=== PATIENT | female | born 1970 | race African-American/Black ===

== ENCOUNTER 2019-07-09 11:43 | Outpatient (CLI) | payer OTHER, SELFPAY ==
--- NOTE | ~2019-07-09 | XR_ITS ---
XR humerus RT, XR shoulder RT min 2V 07/09/2019 12:06 Indication: Right shoulder and arm pain Procedure: 4 views right shoulder and 2 views right humerus Comparison: No prior studies for comparison. Findings: There is mild polyarticular osteoarthritis of the right shoulder. There is a chronic appear ing right acromioclavicular separation. No acute fracture or traumatic malalignment. No significant s oft tissue abnormality. No foreign bodies. Impression: 1: No acute fracture. 2: Mild polyarticular osteoarthritis of the right shoulder with probable chronic AC separation. Reviewed, dictated and finalized at location A. Impression: 1: No acute fracture. 2: Mild polyarticular osteoarthritis of the right shoulder with probable chroni c AC separation. Impression: 1: No acute fracture. 2: Mild polyarticular osteoarthritis of the right shoulder with probable chroni c AC separation.
--- NOTE | ~2019-07-09 | XR_ITS ---
XR wrist RT 2V 07/09/2019 12:06 Indication: Right wrist pain Procedure: 2 views right wrist Comparison: 01/14/2017 Findings: No acute fracture or traumatic malalignment. No significant soft tissue abnormality. No rad iopaque foreign bodies. No erosive changes. Impression: 1: No significant bone or joint abnormality. Reviewed, dictated and finalized at location A. Impression: 1: No significant bone or joint abnormality.
== END 2019-07-09 11:44 | disposition home or self-care (01) ==
LOC: ANHIMG 11:45
PROVIDERS: PCP Family Medicine; Referring Provider Physician Assistant; Visit Provider Family Medicine
DX: M25.511 Pain in right shoulder (principal); M19.011 Primary osteoarthritis, right shoulder
CPT/HCPCS: 73030; 73060; 73100

== ENCOUNTER 2019-12-16 15:28 | Outpatient (CLI) | payer OTHER, MEDICAID, SELFPAY ==
--- NOTE | ~2019-12-16 | MR_ITS ---
EXAMINATION: MR cervical spine wo con EXAM DATE: 12/16/2019 16:30 INDICATION: Cervicalgia. TECHNIQUE: Multi-sequential, multiplanar MR images of the cervical spine were obtained without contra st. Axial T2, axial T2 MERGE sequence. Sagittal T1, T2, T2 fat saturation images also obtained. Com parison is made to prior examination from 10/08/2007. FINDINGS: There is moderate disc disease C3-6, mild at C2-3 and C6-7. The vertebral bodies are align ed in the AP dimension. There are no suspicious marrow signal abnormalities. The spinal cord signal i ntensity and intrinsic morphology is normal. Cervicomedullary junction is normal in appearance. Par aspinal soft tissue is unremarkable. Level by level evaluation: C2-C3: Disc does not extend beyond the endplate margin. Uncovertebral joint arthropathy: None. Facet joint arthropathy: Mild bilateral. Neural foraminal stenosis: No stenosis. Central canal stenosis: No stenosis. C3-C4: There is a mild diffuse disc bulge with small 3 mm superimposed left central extrusion indenti ng the left anterior aspect of the spinal cord. No cord edema. Uncovertebral joint arthropathy: Mild bilateral. Facet joint arthropathy: Mild bilateral. Neural foraminal stenosis: Mild bilateral. Central canal stenosis: Mild. C4-C5: There is a mild to moderate diffuse disc bulge. Uncovertebral joint arthropathy: Mild. Facet joint arthropathy: Mild. Neural foraminal stenosis: Mild bilateral. Central canal stenosis: Mild . Central canal measures 7 mm in mid sagittal AP diameter . C5-C6: There is a mild to moderate diffuse disc bulge. Uncovertebral joint arthropathy: Moderate right, mild to moderate left. Facet joint arthropathy: Mild bilateral. Neural foraminal stenosis: Moderate right, mild to moderate left. Central canal stenosis: Mild . Central canal measures 6 mm in mid sagittal AP diameter . C6-C7: There is a mild diffuse disc bulge. Uncovertebral joint arthropathy: Mild to moderate left, mild right. Facet joint arthropathy: Mild bilateral. Neural foraminal stenosis: Mild to moderate left, mild right. Central canal stenosis: Mild . Central canal measures 7 mm in mid sagittal AP diameter . C7-T1: Disc does not extend beyond the endplate margin. Uncovertebral joint arthropathy: Mild left. Facet joint arthropathy: Mild to moderate right, mild left. Neural foraminal stenosis: No stenosis. Central canal stenosis: No stenosis. There has been some interval progression in spondylosis compared to 2008. IMPRESSION: 1. C3-4 small left central extrusion indenting the spinal cord. 2. Overall mild to moderate cervical spondylosis with mild progression compared to 2007. Reviewed, dictated and finalized at location B. IMPRESSION: 1. C3-4 small left central extrusion indenting the spinal cord. 2. Overall mild to moderate cervical spondylosis with mild progression compare d to 2007.
== END 2019-12-16 15:29 | disposition home or self-care (01) ==
PROVIDERS: PCP Family Medicine; Visit Provider Family Medicine
DX: M54.2 Cervicalgia (principal); M47.812 Spondylosis without myelopathy or radiculopathy, cervical region
CPT/HCPCS: 72141

== ENCOUNTER → 2020-01-10 13:42 | Outpatient (CLI) | payer OTHER, MEDICAID, SELFPAY ==
--- NOTE | ~2020-01-10 | MM_ITS ---
EXAMINATION: MM screening rachna BI w jun HISTORY: Screening mammogram TECHNIQUE: Craniocaudal and mediolateral oblique 3-D tomosynthesis images were obtained and synthetic 2-D images were generated. CAD analysis was submitted and interpreted. COMPARISON: 11/23/2016, 11/11/2014, 10/15/2013 bilateral digital screening mammogram examinations BREAST PARENCHYMAL COMPOSITION: There are scattered areas of fibroglandular density. FINDINGS: There is an irregular approximately 10 x 14 mm mass with microcalcifications in the central right breast approximately 5.6 cm deep to the nipple. The high density, irregular margins and microc alcifications are very highly suspicious for primary breast cancer. Diagnostic right mammogram and ri ght breast ultrasound examination are recommended. There is stable asymmetry in the anterior outer right breast on CC projection, not significantly brumfield ged since 10/15/2013. No other suspicious mass, architectural distortion, malignant calcification, skin thickening or retra ction or other significant change of either breast is noted. IMPRESSION: 1. 10 x 14 mm irregular high density mass with microcalcifications in central right breast, very high ly suspicious for cancer 2. Recommend diagnostic right mammogram and right breast ultrasound examination BI-RADS Category 0: Incomplete: Needs additional imaging evaluation. Dr. Curiel telephoned the findings and the recommendations to nurse Beck on 01/10/2020 at 1454 hours Reviewed, dictated and finalized at location A. IMPRESSION: 1. 10 x 14 mm irregular high density mass with microcalcifications in central r ight breast, very highly suspicious for cancer 2. Recommend diagnostic right mammogram and right breast ultrasound examination BI-RADS Category 0: Incomplete: Needs additional imaging evaluation. Dr. Curiel telephoned the findings and the recommendations to nurse Beck on at 1454 hours
== END ==
PROVIDERS: PCP Family Medicine; Visit Provider Nurse Practitioner
DX: Z12.31 Encounter for screening mammogram for malignant neoplasm of breast (principal); R92.8 Other abnormal and inconclusive findings on diagnostic imaging of breast
CPT/HCPCS: 77063; 77067

== ENCOUNTER 2020-01-18 10:44 | Outpatient (NON) | payer OTHER, MEDICAID, SELFPAY ==
[2020-01-18 23:36] LABS: SARS-CoV-2 RNA PCR Negative
== END 2020-01-18 10:45 ==
LOC: ANHCOVIDDT 10:46
PROVIDERS: PCP Family Medicine; Visit Provider Physician Assistant
DX: Z20.828 Contact with and (suspected) exposure to other viral communicable diseases (principal); R68.89 Other general symptoms and signs
CPT/HCPCS: 87635; C9803; U0003

== ENCOUNTER → 2020-01-26 07:56 | Outpatient (CLI) | payer OTHER, MEDICAID, SELFPAY ==
--- NOTE | ~2020-01-26 | MMUS_ITS ---
EXAMINATION: MM diagnostic mammo unilat RT, US breast RT complete HISTORY: Follow-up right breast mass TECHNIQUE: Additional 3-D tomosynthesis images of the right breast were performed and synthetic 2-D i mages were generated. CAD analysis was submitted and interpreted. High resolution complete right alyssa st ultrasound was performed. COMPARISON: Comparison to multiple prior studies sequentially, with oldest reviewed study dated 08/2012. BREAST PARENCHYMAL COMPOSITION: BREAST PARENCHYMAL COMPOSITION: There are scattered areas of fibroglandular density. FINDINGS: MAMMOGRAPHIC FINDINGS: There is an irregular shaped mass in the central aspect of the right breast measuring approximately 1 .5 cm. There are peripheral calcifications. ULTRASOUND: Complete right breast ultrasound: At 10-11:00 position of the right breast near the areola there is an irregular shaped hypoechoic mass with peripheral vascularity and mixed posterior attenuation 2.1 x 1.6 x 1 cm. This corresponds to th e mammographic abnormality. IMPRESSION: 1. Abnormal 2.1 cm hypoechoic right breast mass corresponding to mammographic abnormality. 2. Ultrasound-guided right breast biopsy recommended. BI-RADS category 4, suspicious findings. Reviewed, dictated and finalized at location A. BUILDER IMPRESSION: 1. Abnormal 2.1 cm hypoechoic right breast mass corresponding to mammographic a bnormality. 2. Ultrasound-guided right breast biopsy recommended. BI-RADS category 4, suspicious findings.
== END ==
PROVIDERS: PCP Family Medicine; Visit Provider Obstetrics & Gynecology Gynecology
DX: R92.8 Other abnormal and inconclusive findings on diagnostic imaging of breast (principal)
CPT/HCPCS: 76641; 77065

== ENCOUNTER → 2020-12-04 09:50 | Outpatient (CLI) | payer OTHER, MEDICAID, SELFPAY ==
--- NOTE | ~2020-12-04 | MR_ITS ---
EXAMINATION: MR lumbar spine wo con EXAM DATE: 12/04/2020 10:34 INDICATION: M51.9 - Unspecified thoracic, thoracolumbar and lumbosacr... low back pain . Bilateral le g pain. TECHNIQUE: Multi-sequential, multiplanar MR images of the lumbar spine were obtained without contrast . Sagittal T1, T2, T2 fat saturation images. Axial T2 weighted images. Comparison is made to prior examination from 2008. FINDINGS: The vertebral bodies are aligned in the AP dimension. Vertebral body and disc heights are w ell-maintained. There are no suspicious marrow signal abnormalities. The conus medullaris terminates at the L1/2 level and has normal signal intensity and morphology. Paraspinal soft tissue is unremarka ble. Level by level evaluation: T12-L1: Disc does not extend beyond the endplate margin. Facet arthropathy: Mild. Neural foraminal stenosis: No stenosis. Central canal stenosis: No stenosis. L1-L2: Disc does not extend beyond the endplate margin. Facet arthropathy: Mild. Neural foraminal stenosis: No stenosis. Central canal stenosis: No stenosis. L2-L3: Disc does not extend beyond the endplate margin. Facet arthropathy: Mild. Neural foraminal stenosis: No stenosis. Central canal stenosis: No stenosis. L3-L4: There is a mild diffuse disc bulge. Facet arthropathy: Mild to moderate. Neural foraminal stenosis: Mild bilateral. Central canal stenosis: No stenosis. L4-L5: There is a mild diffuse disc bulge. Facet arthropathy: Moderate to severe right, moderate left. Synovial cyst projecting internally from the right facet joint causing severe lateral recess stenosis, nerve root crowding Neural foraminal stenosis: Mild to moderate left, mild right. Central canal stenosis: Moderate. L5-S1: There is a mild diffuse disc bulge. Facet arthropathy: Mild to moderate. Neural foraminal stenosis: Mild bilateral. Central canal stenosis: Mild. Arthropathy has progressed, and the synovial cyst described above has developed compared to 2008. IMPRESSION: L4-5 facet arthropathy with right facet synovial cyst causing severe right lateral recess stenosis, moderate central canal stenosis. Reviewed, dictated and finalized at location B. IMPRESSION: L4-5 facet arthropathy with right facet synovial cyst causing sever e right lateral recess stenosis, moderate central canal stenosis.
== END ==
PROVIDERS: PCP Family Medicine; Visit Provider Family Medicine
DX: M51.9 Unspecified thoracic, thoracolumbar and lumbosacral intervertebral disc disorder (principal); M47.896 Other spondylosis, lumbar region; M48.061 Spinal stenosis, lumbar region without neurogenic claudication
CPT/HCPCS: 72148

== ENCOUNTER → 2021-10-20 09:51 | Outpatient (CLI) | payer OTHER, MEDICAID, SELFPAY ==
--- NOTE | ~2021-10-20 | MR_ITS ---
EXAMINATION: MR lumbar spine wo con DATE: 10/20/2021 10:59 INDICATION: Low back pain. Bilateral leg numbness. TECHNIQUE: Magnetic resonance imaging (MRI) of the lumbar spine was performed without intravenous con trast. Sequences included sagittal T2-weighted FSE, sagittal T2-weighted FS FSE, sagittal T1-weighted FSE, and axial T2-weighted FSE. COMPARISON: Lumbar spine MRI 12/04/2020 FINDINGS: There is 6 degrees levocurvature of lumbar spine. Vertebral body heights and intervertebral disc heights are normal. The distal spinal cord signal intensity is normal. The conus medullaris is at L1-L2. The following disc levels are specifically discussed: L1-L2: The disc does not extend beyond the endplate margin. There is mild bilateral facet joint osteo arthritis. There is no neural foraminal stenosis. There is no central canal stenosis. L2-L3: There is a left foraminal protrusion. There is mild bilateral facet joint osteoarthritis. Ther e is mild left neural foraminal stenosis. There is no central canal stenosis. L3-L4: The disc is mildly bulging. There is severe bilateral facet joint osteoarthritis. There is mil d bilateral neural foraminal stenosis. There is no central canal stenosis. L4-L5: The disc is bulging. There is severe bilateral facet joint osteoarthritis. There is mild bilat eral neural foraminal stenosis. There is mild central canal stenosis. There are changes of hemilamino ernie on the right. The synovial cyst is no longer present. L5-S1: The disc is bulging and has an annular fissure. There is severe bilateral facet joint osteoart hritis. There is mild bilateral neural foraminal stenosis. There is mild central canal stenosis. IMPRESSION: 1. Mild lumbar spondylosis with interval improvement status post resolution of the synovial cyst on t he right at L4-L5. Reviewed, dictated and finalized at location A. IMPRESSION: 1. Mild lumbar spondylosis with interval improvement status post resolution of the synovial cyst on the right at L4-L5.
== END ==
PROVIDERS: PCP Family Medicine
DX: M71.38 Other bursal cyst, other site (principal); Z98.890 Other specified postprocedural states; M47.816 Spondylosis without myelopathy or radiculopathy, lumbar region
CPT/HCPCS: 72148

== ENCOUNTER → 2021-11-24 07:56 | Outpatient (CLI) | payer MEDICAID, SELFPAY ==
--- NOTE | ~2021-11-24 | US_ITS ---
EXAMINATION: US abdomen complete DATE: 11/24/2021 08:16 INDICATION: Abnormal levels of other serum enzymes. TECHNIQUE: Multiple grayscale and Doppler ultrasound images of the abdomen were obtained. COMPARISON: None FINDINGS: Abdominal aorta is normal in caliber. Inferior vena cava is normal. The visualized portions of the head and body of the pancreas are normal. The liver is normal without focal lesion. No liver surface nodularity. There is normal flow in main portal vein. The gallbladder is normal in size. No g allstones or gallbladder wall thickening. There is no sonographic Reynoso sign. The common duct is nor mal and measures 3 mm. The spleen is normal in size. The kidneys are normal in size. IMPRESSION: 1. No etiology for abnormal liver function tests. Reviewed, dictated and finalized at location A.
== END ==
PROVIDERS: PCP Physician Assistant; Visit Provider Physician Assistant
DX: R74.8 Abnormal levels of other serum enzymes (principal)
CPT/HCPCS: 76700

== ENCOUNTER 2022-04-22 00:42 | Day surgery (SDC) | payer OTHER, SELFPAY ==
[2022-03-05 10:46] VITALS: BMI 36.7
--- NOTE | 2022-04-04 14:16 | PC.NURSE ---
Talked to patient regarding new procedure dates/times. Patient states she understands prep instructions. No new medical history or medication since last phone call.
[2022-04-22 07:41] VITALS: BMI 37.0
[2022-04-22 07:43] VITALS: BP 147/89; PULSE 74; RESP 18; TEMP 36.1; O2SAT 100
[2022-04-22] MEDS: LACTATED RINGERS 1,000 ML 150 ML IV CONT (07:52)
--- NOTE | 2022-04-22 08:12 | WPDANESEPPF ---
Anes - Initial Pre Proc Eval Procedure: Operation Date: 04/22/22 08:30 Proposed Procedures p Screening Colonoscopy - Jason Calix MD Date/Time: 04/22/22 08:12 Surgeon: Jason Calix MD Pre Op Diagnosis: neoplasm screening Patient Data Age: 52 Gender: F Height: 1.6 m Weight: 94.7 kg Last Vital Signs Temp 97.0 F L 04/22/22 07:43 Pulse 74 04/22/22 07:43 Resp 18 04/22/22 07:43 BP 147/89 H 04/22/22 07:43 Pulse Ox 100 04/22/22 07:43 O2 Del Method Room Air 04/22/22 07:43 Allergies Allergy/AdvReac Type Severity Reaction Status Date / Time cefaclor Allergy Unknown Unknown Verified 04/22/22 07:39 ciprofloxacin Allergy Unknown Unknown Verified 04/22/22 07:39 Home Medications Medication Instructions Recorded Confirmed Type acetaminophen 500 mg capsule 500 mg PO Q6H PRN Pain 01/24/21 03/05/22 History multivitamin 1 tablet PO DAILY 01/24/21 03/05/22 History tamoxifen 20 mg tablet 20 mg PO DAILY 01/24/21 03/05/22 History vitamin E 200 unit capsule 200 unit PO DAILY 01/24/21 03/05/22 History amlodipine 5 mg tablet 5 mg PO DAILY #30 tabs 06/28/21 03/05/22 Rx loratadine 10 mg tablet (Claritin) 10 mg PO DAILY #30 tabs 06/28/21 03/05/22 Rx ergocalciferol (vitamin D2) 1,250 1,250 mcg PO WEEKLY #14 caps 09/28/21 03/05/22 Rx mcg (50,000 unit) capsule fluticasone propionate 50 1 spray intranasal BID #16 grams 12/11/21 03/05/22 Rx mcg/actuation nasal spray,suspension hydrocodone 7.5 mg-acetaminophen 1 tablet PO Q6H PRN pain #60 tabs 01/23/22 03/05/22 Rx 325 mg tablet escitalopram oxalate 10 mg tablet 10 mg PO DAILY #30 tabs 02/05/22 03/05/22 Rx gabapentin 400 mg capsule 400 mg PO BID #60 caps 02/05/22 03/05/22 Rx meloxicam 15 mg tablet 15 mg PO DAILY #30 tabs 02/05/22 03/05/22 Rx chlorthalidone 25 mg tablet 25 mg PO QAM #30 tabs 02/22/22 03/05/22 Rx losartan 50 mg tablet 50 mg PO DAILY #30 tabs 04/18/22 04/22/22 Rx Patient hx anesthesia problems: none Family hx anesthesia problems: none Results Review: All pre-operative results and documents have been reviewed as part of the pre-operative evaluation. [facility] Past Medical History Medical History Allergic rhinitis (08/03/15) Breast cancer Cervical disc disease Depression Encounter for immunization Essential (primary) hypertension Gastroesophageal reflux disease Hyperlipidemia Sleep apnea Vitamin D deficiency Surgical History Surgical History History of lumpectomy (~03/2020) alissa 6 and 19 - right breast - breast cancer Previous back surgery Family History Family History Mother Hypertension Grandparent Family history of malignant neoplasm Social History Social History (Updated 02/05/22 @ 14:57 by Polly Lloyd CMA) Smoking status: Never smoker Second hand tobacco smoke exposure: No Alcohol intake: current Alcohol use details: occasional Substance use: current Substance use type: marijuana Other substance usage details: edibles Lack of Transportation: No Lack of Food: Sometimes True Current Housing: I Have Housing Concerned About Future Housing: No Difficulty Paying Gas/Electric Bills: YES Difficulty Paying for Meds: No 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cation: High School Diploma/GED Difficulty w/ Childcare or Family Care: No Living arrangements: with family Occupation/Education: unemployed Gender identity (if verbalized by the patient): Female Sexual Orientation (if Verbalized by the Patient): Straight or Heterosexual Spiritual care concerns: No Agree to blood products: Yes Anes - Eval Final PreProcedure Day of Procedure 04/22/22 08:12 Patient weight: obese Heart: regular rate and rhythm Lungs: clear to auscultation Airway: Mallampati scale class II Neurological: alert and
--- NOTE | 2022-04-22 08:29 | PM.HPGS ---
History of Present Illness History of Present Illness Consent: Risks, benefits, and alternatives have been discussed and questions answered. Patient agrees to proceed with procedure. Chief complaint: neoplasm screening Narrative: Roula Burnett is a 52 year old female here for first screening colonoscopy Review of Systems Constitutional: Constitutional: Denies headache(s) and Denies weakness Eyes: Eyes: Denies blurry vision ENT: Reports Normal hearing present, Denies headache(s) and Denies neck pain Cardiovascular: Cardiovascular: Denies chest pain and Denies dyspnea Respiratory: Respiratory: Denies dyspnea Gastrointestinal: Gastrointestinal: Reports no additional gastrointestinal complaints Genitourinary: Genitourinary: Denies dysuria Musculoskeletal: Musculoskeletal: Denies neck pain Integumentary/Breasts: Skin/Breast: Denies dry skin Neurologic: Reports Normal hearing present, Denies headache(s) and Denies weakness Psychiatric: Psychiatric: Denies anxiety Endocrine: Endocrine: Denies change in body appearance Hematologic/Lymphatic: Hematologic/Lymphatic: Denies easy bleeding Allergic/Immunologic: Allergic/Immunologic: Denies urticaria [facility] Past Medical History Medical History (Updated 04/22/22 @ 08:32 by Jason Calix MD) Allergic rhinitis (08/03/15) Breast cancer Cervical disc disease Colon cancer screening Depression Encounter for immunization Essential (primary) hypertension Gastroesophageal reflux disease Hyperlipidemia Sleep apnea Vitamin D deficiency Surgical History Surgical History History of lumpectomy (~03/2020) alissa 5 and 19 - right breast - breast cancer Previous back surgery Family History Family History Mother Hypertension Grandparent Family history of malignant neoplasm Social History Social History (Updated 02/05/22 @ 14:57 by Polly Lloyd [facility]) Smoking status: Never smoker Second hand tobacco smoke exposure: No Alcohol intake: current Alcohol use details: occasional Substance use: current Substance use type: marijuana Other substance usage details: edibles Lack of Transportation: No Lack of Food: Sometimes True Current Housing: I Have Housing Concerned About Future Housing: No Difficulty Paying Gas/Electric Bills: YES Difficulty Paying for Meds: No 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cation: High School Diploma/GED Difficulty w/ Childcare or Family Care: No Living arrangements: with family Occupation/Education: unemployed Gender identity (if verbalized by the patient): Female Sexual Orientation (if Verbalized by the Patient): Straight or Heterosexual Spiritual care concerns: No Agree to blood products: Yes Meds Home Medications and Allergies Home Medications Medication Instructions Recorded Confirmed Type acetaminophen 500 mg capsule 500 mg PO Q6H PRN Pain 01/24/21 03/05/22 History multivitamin 1 tablet PO DAILY 01/24/21 03/05/22 History tamoxifen 20 mg tablet 20 mg PO DAILY 01/24/21 03/05/22 History vitamin E 200 unit capsule 200 unit PO DAILY 01/24/21 03/05/22 History amlodipine 5 mg tablet 5 mg PO DAILY #30 tabs 06/28/21 03/05/22 Rx loratadine 10 mg tablet (Claritin) 10 mg PO DAILY #30 tabs 06/28/21 03/05/22 Rx ergocalciferol (vitamin D2) 1,250 1,250 mcg PO WEEKLY #14 caps 09/28/21 03/05/22 Rx mcg (50,000 unit) capsule fluticasone propionate 50 1 spray intranasal BID #16 grams 12/11/21 03/05/22 Rx mcg/actuation nasal spray,suspension hydrocodone 7.5 mg-acetaminophen 1 tablet PO Q6H PRN pain #60 tabs 01/23/22 03/05/22 Rx 325 mg tablet escitalopram oxalate 10 mg tablet 10 mg PO DAILY #30 tabs 02/05/22 03/05/22 Rx gabapentin 400 mg capsule 400 mg PO BID #60 caps 02/05/22 03/05/22 Rx meloxicam 15 mg tablet 15 mg PO DAILY #30 tabs 02/05/22 03/05/22 Rx chlorthalidone 25 mg ta
[2022-04-22 08:48] VITALS: BP 131/65; PULSE 75; RESP 17; O2SAT 100
[2022-04-22 08:58] VITALS: BP 141/77; PULSE 73; RESP 19; O2SAT 100
[2022-04-22 09:08] VITALS: BP 152/84; PULSE 72; RESP 17; O2SAT 100
== END 2022-04-22 09:22 | disposition home or self-care (01) ==
PROVIDERS: PCP Family Medicine; Visit Provider Internal Medicine Gastroenterology
PROC: 0DJD8ZZ Inspection of Lower Intestinal Tract, Via Natural or Artificial Opening Endoscopic (ICD-10-PCS; CPT 45378; principal; 2022-04-22 08:30)
DX: Z12.11 Encounter for screening for malignant neoplasm of colon (principal); K57.30 Diverticulosis of large intestine without perforation or abscess without bleeding; D12.4 Benign neoplasm of descending colon; I10 Essential (primary) hypertension; E78.5 Hyperlipidemia, unspecified; E55.9 Vitamin D deficiency, unspecified; F32.A Depression, unspecified; G47.30 Sleep apnea, unspecified; Z85.3 Personal history of malignant neoplasm of breast; F12.90 Cannabis use, unspecified, uncomplicated; E66.9 Obesity, unspecified; Z68.37 Body mass index [BMI] 37.0-37.9, adult
CPT/HCPCS: 45385; 88305; J2704; J7120

== ENCOUNTER 2022-10-11 07:34 | Outpatient (CLI) | payer OTHER, SELFPAY ==
--- NOTE | ~2022-10-11 | MR_ITS ---
MRI of the cervical spine Clinical History: Radiculopathy Technique: Axial T2-weighted and gradient images, and sagittal T1-weighted, T2-weighted, and STIR shane ges were acquired. Findings: There is no fracture or subluxation of the cervical spine. Vertebral bodies maintain normal height and alignment. There is straightening of the cervical lordosis. No suspicious bone marrow sig nal abnormality seen. At C2-C3, there is no disc bulge or herniation. No spinal canal stenosis, cord compression, or neural foraminal narrowing. At C3-C4, there is disc osteophyte complex, most pronounced in the left paracentral region, with mild canal stenosis and mild ventral cord compression, especially on the left side. Bilateral neural fora omar are preserved. At C4-C5, there is broad-based disc osteophyte complex with mild canal stenosis and minimal flattenin g the ventral cord. Bilateral neural foramina are preserved. At C5-C6, there is broad-based disc osteophyte complex with mild canal stenosis and mild ventral cord compression. There is right neural foraminal narrowing. Left neural foramen preserved. At C6-C7, there is disc osteophyte complex resulting in mild canal stenosis and probable minimal flat tening the ventral cord. Bilateral neural foramina are preserved. No abnormal signal seen in the spinal cord itself. Paravertebral soft tissues are unremarkable. Impression: Moderate degenerative spondylosis, as detailed above. There is mild ventral cord flattening/compressi on at C3-C4, C4-C5, C5-C6, and C6-C7, as detailed above. Reviewed, dictated and finalized at [facility]. Impression: Moderate degenerative spondylosis, as detailed above. There is mild ventral cor d flattening/compression at C3-C4, C4-C5, C5-C6, and C6-C7, as detailed above.
== END 2022-10-11 07:35 | disposition home or self-care (01) ==
PROVIDERS: PCP Family Medicine; Visit Provider Family Medicine
DX: M50.90 Cervical disc disorder, unspecified, unspecified cervical region (principal); M47.22 Other spondylosis with radiculopathy, cervical region
CPT/HCPCS: 72141

== ENCOUNTER 2022-11-27 10:36 | Outpatient (CLI) | payer OTHER, SELFPAY ==
--- NOTE | ~2022-11-27 | US_ITS ---
EXAMINATION: US pelvic complete w TV DATE: 11/27/2022 11:23 INDICATION: PELVIC PAIN TECHNIQUE: Multiple transabdominal and endovaginal sonographic images of the pelvis were obtained. COMPARISON: 12/19/2017. FINDINGS: Uterus: 7.1 x 7.0 x 5.7 cm. Heterogeneous uterine parenchyma. Discrete fibroid is not identified. End ometrial complex poorly visualized, with an indistinct transitional zone, and not directly measured. Right Ovary: Poorly visualized. Left Ovary: Not visualized. There is no free fluid in the pelvis. IMPRESSION: Sonographic findings suggestive of adenomyosis. Port mineralization of the right ovary. Left ovary not visualized. MR of the pelvis could be considered to confirm adenomyosis and/or leiomyomatosis and better evaluate the bilateral ovaries/adnexa. Reviewed, dictated and finalized at location K. IMPRESSION: Sonographic findings suggestive of adenomyosis. Port mineralization of the right ovary. Left ovary not visualized. MR of the pelvis could be considered to confirm adenomyosis and/or leiomyomatos is and better evaluate the bilateral ovaries/adnexa.
== END 2022-11-27 10:37 | disposition home or self-care (01) ==
LOC: ANHIMG 10:37
PROVIDERS: PCP Family Medicine; Visit Provider Nurse Practitioner
DX: N85.2 Hypertrophy of uterus (principal); D25.9 Leiomyoma of uterus, unspecified
CPT/HCPCS: 76830; 76856

== ENCOUNTER 2023-01-09 09:37 | Outpatient (CLI) | payer OTHER, SELFPAY ==
--- NOTE | ~2023-01-09 | XR_ITS ---
XR lumbar spine min 4V DATE: 01/09/2023 10:52 INDICATION: Standing AP and neutral, extension and flexion lateral standing views TECHNIQUE: 01/10/2020 MRI lumbar spine COMPARISON: 01/09/2023 MRI lumbar spine FINDINGS: Incidentally noted are bilateral fallopian tube inserts. There is mild levoscoliosis of the thoracolumbar spine. Normal alignment of the lumbar spine in flexion or extension. No fracture or bone destruction is dete cted. Included lower thoracic and lumbar pedicles are intact. There is mild degenerative spurring of the lumbar spine. Lumbar interspaces appear relatively well pr eserved. IMPRESSION: Mild levoscoliosis Mild degenerative spurring Reviewed, dictated and finalized at location L.
--- NOTE | ~2023-01-09 | MR_ITS ---
MRI of the lumbar spine Clinical History: Radiculopathy Technique: Axial T2-weighted images, and sagittal T1-weighted, T2-weighted, and T2 fat-sat images wer e acquired. Following intravenous administration of 18 cc MultiHance gadolinium, T1-weighted fat-sat imaging was performed in the axial and sagittal planes. Findings: There is no fracture or subluxation of the lumbar spine. Vertebral bodies maintain normal h eight and alignment. No suspicious bone marrow signal abnormality seen. At L1-L2, L2-L3, there is no disc bulge or herniation. There are moderate facet joint degenerative ch anges at these levels. No spinal canal stenosis or neural foraminal narrowing. At L3-L4, there is minimal disc bulge with moderate facet arthropathy. No central canal stenosis. The re is mild bilateral neural foraminal narrowing. At L4-L5, there is disc bulge with severe facet arthropathy. There is mild to moderate central canal stenosis. There is severe left neural foraminal narrowing, and moderate right neural foraminal narrow ing. At L5-S1, there is minimal disc bulge with severe facet arthropathy. No central canal stenosis. There is moderate bilateral neural foraminal narrowing, left worse than right. Paravertebral soft tissues are unremarkable. No abnormal postcontrast enhancement identified. Impression: Moderate to advanced degenerative spondylosis at L4-L5, as detailed above. Overall mild degenerative change at the remaining lumbar spine levels, as detailed above. Reviewed, dictated and finalized at [facility]. Impression: Moderate to advanced degenerative spondylosis at L4-L5, as detailed above. Overall mild degenerative change at the remaining lumbar spine levels, as detai led above.
--- NOTE | ~2023-01-09 | XR_ITS ---
EXAMINATION:XR cervical spine 4-5V DATE: 01/09/2023 10:52 INDICATION: Neck pain TECHNIQUE: AP, lateral in neutral, flexion, extension, and odontoid views of the cervical spine are p rovided. COMPARISON: MRI, 10/11/2022 FINDINGS: Alignment is normal. There is no hypermobility with flexion or extension. The odontoid proc ess is intact. No fracture is identified. The vertebral body heights are maintained. There is mild lo ss of intervertebral disc space height at C2-C3 and C5-C6. Small degenerative osteophytes project fro m the anterior endplates of multiple vertebral bodies. There is multilevel moderate facet and uncover tebral joint osteoarthritis Prevertebral soft tissues are normal. IMPRESSION: 1. Moderate cervical spondylosis without acute findings. Reviewed, dictated and finalized at location F.
== END 2023-01-09 09:38 | disposition home or self-care (01) ==
PROVIDERS: PCP Family Medicine; Visit Provider Neurological Surgery
DX: M47.812 Spondylosis without myelopathy or radiculopathy, cervical region (principal); M43.02 Spondylolysis, cervical region; M43.06 Spondylolysis, lumbar region; M41.85 Other forms of scoliosis, thoracolumbar region; M46.06 Spinal enthesopathy, lumbar region; M54.16 Radiculopathy, lumbar region; Z98.890 Other specified postprocedural states
CPT/HCPCS: 72050; 72110; 72158; A9577

== ENCOUNTER 2023-02-19 08:47 | Outpatient (CLI) | payer OTHER, SELFPAY ==
--- NOTE | 2023-02-19 11:15 | NEURO_ITS ---
Impression: # Complains of pain in hands. # No Carpal Tunnel Syndrome. # Ulnar neuropathy across the elbows. # Normal needle/EMG exam. Nerve Conduction Studies Anti Sensory Summary Table Stim Site NR Peak (ms) P-T Amp (?V) Site1 Site2 Delta-P (ms) Dist (cm) Parveen (m/s) Left Median Anti Sensory (2-3nd Digit) Wrist 3.3 56.7 Wrist 2-3nd Digit 3.3 14.0 42 Wrist 3.2 53.8 Wrist 2-3nd Digit 3.3 14.0 42 Right Median Anti Sensory (2-3nd Digit) Wrist 3.2 54.7 Wrist 2-3nd Digit 3.2 14.0 44 Wrist 3.1 53.5 Wrist 2-3nd Digit 3.2 14.0 44 Left Radial Anti Sensory (Base 1st Digit) Wrist 1.8 27.6 Wrist Base 1st Digit 1.8 0.0 Right Radial Anti Sensory (Base 1st Digit) Wrist 2.1 19.8 Wrist Base 1st Digit 2.1 0.0 Left Ulnar Anti Sensory (5th Digit) Wrist 2.4 18.3 Wrist 5th Digit 2.4 14.0 58 Right Ulnar Anti Sensory (5th Digit) Wrist 2.2 55.2 Wrist 5th Digit 2.2 14.0 64 Motor Summary Table Stim Site NR Onset (ms) O-P Amp (mV) Site1 Site2 Delta-0 (ms) Dist (cm) Parveen (m/s) Left Median Motor (Abd Poll Brev) Wrist 3.3 6.3 Elbow Wrist 5.1 30.0 59 Elbow 8.4 6.7 Right Median Motor (Abd Poll Brev) Wrist 3.4 8.7 Elbow Wrist 4.6 27.0 59 Elbow 8.0 8.0 Left Ulnar Motor (Abd Dig Minimi) Wrist 2.2 4.6 A Elbow Wrist 6.1 29.0 48 A Elbow 8.3 6.7 B Elbow Wrist 3.3 20.0 61 B Elbow 5.5 6.2 Right Ulnar Motor (Abd Dig Minimi) Wrist 2.2 7.9 A Elbow Wrist 5.8 29.0 50 A Elbow 8.0 6.5 B Elbow Wrist 3.4 21.0 62 B Elbow 5.6 4.6 F Wave Studies NR F-Lat (ms) L-R F-Lat (ms) Left Median (Mrkrs) (Abd Poll Brev) 27.05 0.23 Right Median (Mrkrs) (Abd Poll Brev) 27.28 0.23 Left Ulnar (Mrkrs) (Abd Dig Min) 28.03 0.00 Right Ulnar (Mrkrs) (Abd Dig Min) 28.03 0.00 EMG Side Muscle Nerve Root Ins Act Fibs Amp Dur Recrt Comment Right 1stDorInt Ulnar C8-T1 Nml Nml Nml Nml Nml Right Ext Indicis Radial (Post Int) C7-8 Nml Nml Nml Nml Nml Right Ext Digitorum Radial (Post Int) C7-8 Nml Nml Nml Nml Nml Right BrachioRad Radial C5-6 Nml Nml Nml Nml Nml Right PronatorTeres Median C6-7 Nml Nml Nml Nml Nml Right Abd Poll Brev Median C8-T1 Nml Nml Nml Nml Nml Left 1stDorInt Ulnar C8-T1 Nml Nml Nml Nml Nml Left Ext Indicis Radial (Post Int) C7-8 Nml Nml Nml Nml Nml Left Ext Digitorum Radial (Post Int) C7-8 Nml Nml Nml Nml Nml Left BrachioRad Radial C5-6 Nml Nml Nml Nml Nml Left PronatorTeres Median C6-7 Nml Nml Nml Nml Nml Left Abd Poll Brev Median C8-T1 Nml Nml Nml Nml Nml Right ABD Dig Min Ulnar C8-T1 Nml Nml Nml Nml Nml Left ABD Dig Min Ulnar C8-T1 Nml Nml Nml Nml Nml MTDD
== END 2023-02-19 08:48 | disposition home or self-care (01) ==
LOC: ANHNEURO 08:48
PROVIDERS: PCP Family Medicine; Visit Provider Family Medicine
DX: R20.2 Paresthesia of skin (principal); G56.23 Lesion of ulnar nerve, bilateral upper limbs
CPT/HCPCS: 95886; 95911

== ENCOUNTER 2023-03-05 13:01 | Outpatient (CLI) | payer OTHER, SELFPAY ==
--- NOTE | ~2023-03-05 | US_ITS ---
US venous doppler LE BI INDICATION: Screening. TECHNIQUE: Screening digital mammogram submitted. CAD analysis submitted and interpreted. COMPARISON: No prior studies for comparison. FINDINGS: . There are no masses or abnormal calcifications to suggest malignancy. Regular clinical br east examination and annual mammography are recommended. IMPRESSION: 1) NO MAMMOGRAPHIC EVIDENCE OF MALIGNANCY IN EITHER BREAST. RECOMMENDATION: Routine yearly screening mammogram and regular clinical breast examination are recomm ended. BI-RADS CATEGORY 1 - NEGATIVE Reviewed, dictated and finalized at location A. [employer] IMPRESSION: 1) NO MAMMOGRAPHIC EVIDENCE OF MALIGNANCY IN EITHER BREAST. RECOMMENDATION: Routine yearly screening mammogram and regular clinical breast examination are recommended. BI-RADS CATEGORY 1 - NEGATIVE
== END 2023-03-05 13:02 | disposition home or self-care (01) ==
PROVIDERS: PCP Family Medicine; Visit Provider Neurological Surgery
DX: M70.89 Other soft tissue disorders related to use, overuse and pressure multiple sites (principal)
CPT/HCPCS: 93970

== ENCOUNTER 2023-04-10 06:59 | Day surgery (SDC) | payer OTHER, SELFPAY ==
[2023-03-20 14:32] VITALS: BMI 37.8
[2023-04-10 08:36] VITALS: BP 153/113; PULSE 73; RESP 18; TEMP 36.7; O2SAT 100
--- NOTE | 2023-04-10 08:39 | WPDANESEPPF ---
Anes - Initial Pre Proc Eval Procedure: Operation Date: 04/10/23 09:15 Proposed Procedures p Right Endoscopic Carpal Tunnel Release, Possible Open Carpal Tunnel Release - Jacobo Panchal MD s Right Cubital Tunnel Release at Elbow - Jacobo Panchal MD Date/Time: 04/10/23 08:39 Surgeon: Jacobo Panchal MD Pre Op Diagnosis: Right Carpal and Cubital Tunnel Syndrome Patient Data Age: 53 Gender: F Height: 1.57 m Weight: 92.85 kg Last Vital Signs Temp 36.7 C 04/10/23 08:36 Pulse 73 04/10/23 08:36 Resp 18 04/10/23 08:36 BP 153/113 H 04/10/23 08:36 Pulse Ox 100 04/10/23 08:36 O2 Del Method Room Air 04/10/23 08:36 Allergies Allergy/AdvReac Type Severity Reaction Status Date / Time cefaclor Allergy Unknown Cough Verified 04/10/23 08:30 ciprofloxacin Allergy Unknown Cough Verified 04/10/23 08:30 Home Medications Medication Instructions Recorded Confirmed Type acetaminophen 500 mg capsule 500 mg PO Q6H PRN Pain 01/24/21 04/10/23 History multivitamin 1 tablet PO DAILY 01/24/21 04/10/23 History tamoxifen 20 mg tablet 20 mg PO DAILY 01/24/21 04/10/23 History vitamin E 200 unit capsule 200 unit PO DAILY 01/24/21 04/10/23 History loratadine 10 mg tablet (Claritin) 10 mg PO DAILY #30 tabs 06/28/21 04/10/23 Rx amlodipine 5 mg tablet 5 mg PO DAILY #30 tabs 06/14/22 04/10/23 Rx polyethylene glycol 3350 17 17 g PO DAILY #510 grams 06/20/22 04/10/23 Rx gram/dose oral powder (Miralax) fluticasone propionate 50 1 spray intranasal BID #16 grams 07/10/22 04/10/23 Rx mcg/actuation nasal spray,suspension losartan 100 mg tablet 100 mg PO DAILY #90 tabs 08/13/22 04/10/23 Rx oxybutynin chloride 5 mg tablet 5 mg PO DAILY #30 tabs 08/28/22 04/10/23 Rx ergocalciferol (vitamin D2) 1,250 1,250 mcg PO WEEKLY #14 caps 01/17/23 04/10/23 Rx mcg (50,000 unit) capsule hydrocodone 7.5 mg-acetaminophen 1 tablet PO Q6H PRN pain #30 tabs 01/21/23 04/10/23 Rx 325 mg tablet gabapentin 400 mg capsule See Rx Instructions PO BID #90 caps 01/22/23 04/10/23 Rx lidocaine 5 % topical patch 1 patch topical DAILY #30 ea 01/22/23 03/25/23 Rx celecoxib 200 mg capsule (Celebrex) 200 mg PO BID #60 caps 02/17/23 04/10/23 Rx mirtazapine 7.5 mg tablet 7.5 mg PO QHS #30 tabs 02/17/23 04/10/23 Rx chlorthalidone 25 mg tablet 25 mg PO QAM #90 tabs 04/01/23 04/10/23 Rx Patient hx anesthesia problems: none Family hx anesthesia problems: none Results Review: All pre-operative results and documents have been reviewed as part of the pre-operative evaluation. [facility] Past Medical History Medical History Allergic rhinitis (08/03/15) Breast cancer Cervical disc disease Colon cancer screening Depression Encounter for immunization Essential (primary) hypertension Gastroesophageal reflux disease Hyperlipidemia Sleep apnea Vitamin B12 deficiency Vitamin D deficiency Surgical History Surgical History History of lumpectomy (~03/2020) alissa 6 and 19 - right breast - breast cancer Previous back surgery Family History Family History Mother Hypertension Grandparent Family history of malignant neoplasm Social History Social History Smoking status: Never smoker Second hand tobacco smoke exposure: No Alcohol intake: current Alcohol use details: occasional Substance use: current Substance use type: does not use Other substance usage details: edibles Do You Feel Safe in your Home?: Yes Lack of Transportation: No Lack of Food: Sometimes True Current Housing: I Have Housing Concerned About Future Housing: No Difficulty Paying Gas/Electric Bills: YES Difficulty Paying for Meds: No 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cation: High School Diploma/GED Difficulty w/ Childca
[2023-04-10] MEDS: LACTATED RINGERS 1,000 ML 30 ML IV CONT (09:05)
--- NOTE | 2023-04-10 09:46 | WPDHPUPDATE1 ---
History and Physical Update Update Date/Time: 04/10/23 09:46 Patient seen and examined in pre-operative holding area. No interval change in medical history or symptoms. Patient recalls previous discussion of benefits and alternatives to procedure. Continues to desire to proceed with right ectr poss open and rigth cubital tunnel release . Reviewed procedure, post-op expectations and risks including but not limited to bleeding, infection, injury to tendon/nerve/vessel, decreased hand function, stiffness, RSD, no change or worsening of symptoms. I discussed the possible use of assistants and their participation in the case. Patient stated understanding and signed the consent form wishing to proceed.
--- NOTE | 2023-04-10 09:47 | W.PM.PROC2 ---
Procedure Note - Detailed Date of Procedure 04/10/23 Pre-op Diagnosis Right Carpal and Cubital Tunnel Syndrome Post-op Diagnosis Same Procedure Performed right ectr and cubital tunnel release Surgeon Jacobo Panchal MD Anesthesia MAC Description of Procedure INFORMED CONSENT: The patient was seen and examined and marked in the pre-op area.? The patient signed the consent form. PROCEDURE IN DETAIL:The patient taken back to OR on the stretcher in supine position. Time out performed with anesthesia, surgeon and staff agreeing on patient's name site and surgery to be performed SCDs were placed on the lower extremities and inflated. A tourniquet was placed on {right} upper extremity and antibiotics given IV After anesthesia administered sedation I injected {10}cc 1%lido with epi and 0.5% marcaine plain at the operative sites The?{right upper extremity}?was prepped and draped in sterile fashion the??{right upper extremity} was? exsanguinated with Esmarch bandage and tourniquet inflated to 250mmHg I made a transverse incision in the {right} volar distal wrist crease through skin and dermis with 15 blade scalpel.? Littler scissors spread down to antebrachial fascia. A small incision was made in antebrachial fascia allowing access to Carpal tunnel. I proceeded with sequential dilation staying in line with the ring finger and hugging the hook of the hamate.? I then used the synovial elevator to free any adhesions from the underside of the transverse carpal ligament. Next I was able to insert the Microaire endoscopic carpal tunnel device with direct visualization of the transverse fibers on the monitor and proceeded with complete segmental retrograde release of the ligament in its entirety.? I irrigated with normal saline and closed with 4-0 monocryl for dermis and subcuticular closure. I next proceeded with making a longitudinal incision between two heads for flexor carpi ulnaris at end of {right} cubital tunnel with 15 blade scalpel.? Littler scissors were used to spread down to FCU fascia.? An incision was made in FCU fascia and ulnar nerve identified exiting cubital tunnel.? I proceeded with complete retrograde release of the cubital tunnel including 7cm proximal for the intermuscular septum.? The nerve appeared healthy with visible vaso nervorum.? There was no subluxation on full elbow range of motion. ? I irrigated with normal saline and closure with 4-0 monocryl for dermis and subcuticular. A dressing of Dermabond, 4x4, gideon, and a volar wrist and posterior elbow splint was applied for patient safety, security, and comfort and secured with an geoff bandage after the tourniquet was let down noting the hand was warm and well perfused. The patient was then awaken from anesthesia and transferred to the recovery room in stable condition.? Complications - none EBL- 0cc Disposition - home in stable conditions [facility] [place] Billing Surgery - Charge Forward: Surgery Billing ([id number])
[2023-04-10] MEDS: ceFAZolin SODIUM 2 GM/20 ML SW SYRINGE IV PUSH (10:15)
[2023-04-10] MEDS: LIDO 1%/EPINEPHRINE 1:100,000 20 ML VIAL 5 ML INFILTRATE (10:19)
[2023-04-10] MEDS: BUPivacaine HCL 0.5% 10 ML AMP 5 ML INFILTRATE (10:19)
[2023-04-10 11:00] VITALS: BP 133/79; PULSE 85; RESP 16; O2SAT 100
--- NOTE | 2023-04-10 11:12 | WPDANESPN ---
Anes - Prog Note Post-Op Date/Time: 04/10/23 11:12 Cardiovascular status: normal Respiratory status: normal Airway patency: baseline Mental status: baseline Post-Op hydration status: normal Vital Signs: Last Vital Signs Temp 36.7 C 04/10/23 08:36 Pulse 73 04/10/23 08:36 Resp 18 04/10/23 08:36 BP 153/113 H 04/10/23 08:36 Pulse Ox 100 04/10/23 08:36 O2 Del Method Room Air 04/10/23 08:36 Pain Score (VAS): 0 Patient Feedback: Patient satisfied with anesthetic care.
[2023-04-10 11:20] VITALS: BP 143/85; PULSE 80; RESP 16; O2SAT 100
[2023-04-10 11:40] VITALS: BP 131/83; PULSE 80; RESP 16; O2SAT 100
== END 2023-04-10 12:04 | disposition home or self-care (01) ==
PROVIDERS: PCP Family Medicine; Visit Provider Plastic Surgery
PROC: 01N54ZZ Release Median Nerve, Percutaneous Endoscopic Approach (ICD-10-PCS; CPT 29848; principal; 2023-04-10 09:15)
PROC: (CPT 29848; 2023-04-10 09:15)
DX: G56.21 Lesion of ulnar nerve, right upper limb (principal); G56.01 Carpal tunnel syndrome, right upper limb
CPT/HCPCS: 29848; 64718

== ENCOUNTER 2023-04-16 11:10 | Outpatient (CLI) | payer OTHER, SELFPAY ==
--- NOTE | ~2023-04-16 | CT_ITS ---
EXAMINATION: CT cervical spine wo con DATE: 04/16/2023 11:43 INDICATION: Neck pain. Disease of spinal cord, unspecified. Numbness and tingling in the shoulders an d arms. TECHNIQUE: Computed tomography (CT) of the cervical spine was performed without intravenous contrast. Automated exposure control and iterative reconstruction technique were employed. The dose-length pro duct was 438.61 mGy-cm. COMPARISON: Cervical spine MRI 10/11/2022 FINDINGS: There is hypolordosis of cervical spine. Vertebral body heights are normal. There is mildly decreased disc height at C3-C4 and C4-C5, moderately decreased disc height at C5-C6, and mildly decr eased disc height at C6-C7. The following disc levels are specifically discussed: C2-C3: There is mild left uncovertebral joint osteoarthritis. There is mild bilateral facet joint ost eoarthritis. There is no neural foraminal stenosis. There is no central canal stenosis. C3-C4: There is mild bilateral uncovertebral joint osteoarthritis. There is mild right and moderate l eft facet joint osteoarthritis. There is no neural foraminal stenosis. There is mild central canal st enosis. C4-C5: There is mild bilateral uncovertebral joint osteoarthritis. There is mild bilateral facet join t osteoarthritis. There is no neural foraminal stenosis. There is mild central canal stenosis. C5-C6: There is severe right and moderate left uncovertebral joint osteoarthritis. There is mild bila teral facet joint osteoarthritis. There is mild bilateral neural foraminal stenosis. There is mild ce ntral canal stenosis. C6-C7: There is mild right and moderate left uncovertebral joint osteoarthritis. There is mild bilate ral facet joint osteoarthritis. There is mild left neural foraminal stenosis. There is mild central c anal stenosis. C7-T1: There is no uncovertebral joint osteoarthritis. There is severe right and moderate left facet joint osteoarthritis. There is mild right neural foraminal stenosis. There is no central canal stenos is. IMPRESSION: 1. Moderate cervical spondylosis. Reviewed, dictated and finalized at location E. [employer]
== END 2023-04-16 11:11 | disposition home or self-care (01) ==
PROVIDERS: PCP Family Medicine; Visit Provider Neurological Surgery
DX: M96.1 Postlaminectomy syndrome, not elsewhere classified (principal); G95.9 Disease of spinal cord, unspecified; M43.02 Spondylolysis, cervical region
CPT/HCPCS: 72125

== ENCOUNTER 2023-05-08 05:49 | Day surgery (SDC) | payer OTHER, SELFPAY ==
[2023-04-24 14:43] VITALS: BMI 37.9
[2023-04-28 09:12] VITALS: BMI 37.9
[2023-05-08 06:37] VITALS: BP 134/79; PULSE 63; RESP 16; TEMP 36.8; O2SAT 100; BMI 37.6
--- NOTE | 2023-05-08 06:39 | SUR.PREOP ---
PT C/O CHRONIC BACK PAIN.
[2023-05-08] MEDS: LACTATED RINGERS 1,000 ML 30 ML IV CONT (06:41)
--- NOTE | 2023-05-08 06:58 | WPDHPUPDATE1 ---
History and Physical Update Update Date/Time: 05/08/23 06:58 Patient seen and examined in pre-operative holding area. No interval change in medical history or symptoms. Patient recalls previous discussion of benefits and alternatives to procedure. Continues to desire to proceed with left endoscopic possible open carpal tunnel release and left cubital tunnel release . Reviewed procedure, post-op expectations and risks including but not limited to bleeding, infection, injury to tendon/nerve/vessel, decreased hand function, stiffness, RSD, no change or worsening of symptoms. I discussed the possible use of assistants and their participation in the case. Patient stated understanding and signed the consent form wishing to proceed.
--- NOTE | 2023-05-08 06:59 | PM.HPGS ---
History of Present Illness History of Present Illness Chief complaint: Left Carpal and Cubital Tunnel Syndrome Narrative: Patient seen and examined in pre-operative holding area. No interval change in medical history or symptoms. Patient recalls previous discussion of benefits and alternatives to procedure. Continues to desire to proceed with left ectr poss open and cubital tunnel release . Reviewed procedure, post-op expectations and risks including but not limited to bleeding, infection, injury to tendon/nerve/vessel, decreased hand function, stiffness, RSD, no change or worsening of symptoms. I discussed the possible use of assistants and their participation in the case. Patient stated understanding and signed the consent form wishing to proceed. Review of Systems Review of Systems: All systems reviewed & are unremarkable except as noted in HPI and below PMFSH Past Medical History Medical History Allergic rhinitis (08/03/15) Breast cancer Cervical disc disease Colon cancer screening Depression Encounter for immunization Essential (primary) hypertension Gastroesophageal reflux disease Hyperlipidemia Sleep apnea Vitamin B12 deficiency Vitamin D deficiency Surgical History Surgical History History of lumpectomy (~03/2020) mar 28 and 19 - right breast - breast cancer Previous back surgery Family History Family History Mother Hypertension Grandparent Family history of malignant neoplasm Social History Social History Smoking status: Never smoker Second hand tobacco smoke exposure: No Alcohol intake: never Alcohol use details: occasional Substance use: current Substance use type: marijuana Other substance usage details: gummies Do You Feel Safe in your Home?: Yes Lack of Transportation: No Lack of Food: Sometimes True Current Housing: I Have Housing Concerned About Future Housing: No Difficulty Paying Gas/Electric Bills: YES Difficulty Paying for Meds: No 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cation: High School Diploma/GED Difficulty w/ Childcare or Family Care: No Living arrangements: alone Occupation/Education: unemployed Gender identity (if verbalized by the patient): Female Sexual Orientation (if Verbalized by the Patient): Straight or Heterosexual Spiritual care concerns: No Agree to blood products: Yes Meds Home Medications and Allergies Home Medications Medication Instructions Recorded Confirmed Type acetaminophen 500 mg capsule 500 mg PO Q6H PRN Pain 01/24/21 05/08/23 History multivitamin 1 tablet PO DAILY 01/24/21 05/08/23 History tamoxifen 20 mg tablet 20 mg PO DAILY 01/24/21 05/08/23 History vitamin E 200 unit capsule 200 unit PO DAILY 01/24/21 05/08/23 History loratadine 10 mg tablet (Claritin) 10 mg PO DAILY #30 tabs 06/28/21 05/08/23 Rx amlodipine 5 mg tablet 5 mg PO DAILY #30 tabs 06/14/22 05/08/23 Rx polyethylene glycol 3350 17 17 g PO DAILY #510 grams 06/20/22 05/08/23 Rx gram/dose oral powder (Miralax) fluticasone propionate 50 1 spray intranasal BID #16 grams 07/10/22 05/08/23 Rx mcg/actuation nasal spray,suspension losartan 100 mg tablet 100 mg PO DAILY #90 tabs 08/13/22 05/08/23 Rx oxybutynin chloride 5 mg tablet 5 mg PO DAILY #30 tabs 08/28/22 05/08/23 Rx ergocalciferol (vitamin D2) 1,250 1,250 mcg PO WEEKLY #14 caps 01/17/23 05/08/23 Rx mcg (50,000 unit) capsule gabapentin 400 mg capsule See Rx Instructions PO BID #90 caps 01/22/23 05/08/23 Rx celecoxib 200 mg capsule (Celebrex) 200 mg PO BID #60 caps 02/17/23 05/08/23 Rx mirtazapine 7.5 mg tablet 7.5 mg PO QHS #30 tabs 02/17/23 05/08/23 Rx chlorthalidone 25 mg tablet 25 mg PO QAM #90 tabs 04/01/23 05/08/23 Rx tramadol 50 mg tablet 50 mg PO Q6H PRN pain #14 tabs
--- NOTE | 2023-05-08 07:00 | W.PM.PROC2 ---
Procedure Note - Detailed Date of Procedure 05/08/23 Pre-op Diagnosis Left Carpal and Cubital Tunnel Syndrome Post-op Diagnosis Same Procedure Performed left ectr and CuTR Surgeon Jacobo Panchal MD Anesthesia MAC Description of Procedure INFORMED CONSENT: The patient was seen and examined and marked in the pre-op area.? The patient signed the consent form. PROCEDURE IN DETAIL:The patient taken back to OR on the stretcher in supine position. Time out performed with anesthesia, surgeon and staff agreeing on patient's name site and surgery to be performed SCDs were placed on the lower extremities and inflated. A tourniquet was placed on {left} upper extremity and antibiotics given IV After anesthesia administered sedation I injected {}cc 1%lido with epi and 0.5% marcaine plain at the operative site The?{left upper extremity}?was prepped and draped in sterile fashion the??{left upper extremity} was? exsanguinated with Esmarch bandage and tourniquet inflated to 250mmHg I made a transverse incision in the {left} volar distal wrist crease through skin and dermis with 15 blade scalpel.? Littler scissors spread down to antebrachial fascia. A small incision was made in antebrachial fascia allowing access to Carpal tunnel. I proceeded with sequential dilation staying in line with the ring finger and hugging the hook of the hamate.? I then used the synovial elevator to free any adhesions from the underside of the transverse carpal ligament. Next I was able to insert the Microaire endoscopic carpal tunnel device with direct visualization of the transverse fibers on the monitor and proceeded with complete segmental retrograde release of the ligament in its entirety.? I irrigated with normal saline and closed with 4-0 monocryl for dermis and subcuticular closure. I next proceeded with making a longitudinal incision between two heads for flexor carpi ulnaris at end of {left} cubital tunnel with 15 blade scalpel.? Littler scissors were used to spread down to FCU fascia.? An incision was made in FCU fascia and ulnar nerve identified exiting cubital tunnel.? I proceeded with complete retrograde release of the cubital tunnel including 7cm proximal for the intermuscular septum.? The nerve appeared healthy with visible vaso nervorum.? There was no subluxation on full elbow range of motion. ? I irrigated with normal saline and closure with 4-0 monocryl for dermis and subcuticular. A dressing of Dermabond, 4x4, gideon, and a volar wrist and posterior elbow splint was applied for patient safety, security, and comfort and secured with an geoff bandage after the tourniquet was let down noting the hand was warm and well perfused. The patient was then awaken from anesthesia and transferred to the recovery room in stable condition.? Complications - none EBL- 0cc Disposition - home in stable conditions [facility] [place] Billing Surgery - Charge Forward: Surgery Billing ([id number] )
--- NOTE | 2023-05-08 07:17 | WPDANESEPPF ---
Anes - Initial Pre Proc Eval Procedure: Operation Date: 05/08/23 07:30 Proposed Procedures p Left Endoscopic Carpal Tunnel Release, Possible Open Carpal Tunnel Release - Jacobo Panchal MD s Left Cubital Tunnel Release - Jacobo Panchal MD Date/Time: 05/08/23 07:17 Surgeon: Jacobo Panchal MD Pre Op Diagnosis: Left Carpal and Cubital Tunnel Syndrome Patient Data Age: 53 Gender: F Height: 1.57 m Weight: 93.4 kg Last Vital Signs Temp 36.8 C 05/08/23 06:37 Pulse 63 05/08/23 06:37 Resp 16 05/08/23 06:37 BP 134/79 05/08/23 06:37 Pulse Ox 100 05/08/23 06:37 O2 Del Method Room Air 05/08/23 06:37 Allergies Allergy/AdvReac Type Severity Reaction Status Date / Time cefaclor Allergy Unknown Cough Verified 05/08/23 06:05 ciprofloxacin Allergy Unknown Cough Verified 05/08/23 06:05 Home Medications Medication Instructions Recorded Confirmed Type acetaminophen 500 mg capsule 500 mg PO Q6H PRN Pain 01/24/21 05/08/23 History multivitamin 1 tablet PO DAILY 01/24/21 05/08/23 History tamoxifen 20 mg tablet 20 mg PO DAILY 01/24/21 05/08/23 History vitamin E 200 unit capsule 200 unit PO DAILY 01/24/21 05/08/23 History loratadine 10 mg tablet (Claritin) 10 mg PO DAILY #30 tabs 06/28/21 05/08/23 Rx amlodipine 5 mg tablet 5 mg PO DAILY #30 tabs 06/14/22 05/08/23 Rx polyethylene glycol 3350 17 17 g PO DAILY #510 grams 06/20/22 05/08/23 Rx gram/dose oral powder (Miralax) fluticasone propionate 50 1 spray intranasal BID #16 grams 07/10/22 05/08/23 Rx mcg/actuation nasal spray,suspension losartan 100 mg tablet 100 mg PO DAILY #90 tabs 08/13/22 05/08/23 Rx oxybutynin chloride 5 mg tablet 5 mg PO DAILY #30 tabs 08/28/22 05/08/23 Rx ergocalciferol (vitamin D2) 1,250 1,250 mcg PO WEEKLY #14 caps 01/17/23 05/08/23 Rx mcg (50,000 unit) capsule gabapentin 400 mg capsule See Rx Instructions PO BID #90 caps 01/22/23 05/08/23 Rx celecoxib 200 mg capsule (Celebrex) 200 mg PO BID #60 caps 02/17/23 05/08/23 Rx mirtazapine 7.5 mg tablet 7.5 mg PO QHS #30 tabs 02/17/23 05/08/23 Rx chlorthalidone 25 mg tablet 25 mg PO QAM #90 tabs 04/01/23 05/08/23 Rx tramadol 50 mg tablet 50 mg PO Q6H PRN pain #14 tabs 04/10/23 05/08/23 Rx hydrocodone 7.5 mg-acetaminophen 1 tablet PO Q6H PRN pain #30 tabs 04/30/23 05/08/23 Rx 325 mg tablet oxycodone-acetaminophen 5 mg-325 1 tablet PO Q6H PRN pain #10 tabs 05/08/23 Rx mg tablet Patient hx anesthesia problems: none Family hx anesthesia problems: none Results Review: All pre-operative results and documents have been reviewed as part of the pre-operative evaluation. [facility] Past Medical History Medical History Allergic rhinitis (08/03/15) Breast cancer Cervical disc disease Colon cancer screening Depression Encounter for immunization Essential (primary) hypertension Gastroesophageal reflux disease Hyperlipidemia Sleep apnea Vitamin B12 deficiency Vitamin D deficiency Surgical History Surgical History History of lumpectomy (~03/2020) alissa 5 and 18 - right breast - breast cancer Previous back surgery Family History Family History Mother Hypertension Grandparent Family history of malignant neoplasm Social History Social History Smoking status: Never smoker Second hand tobacco smoke exposure: No Alcohol intake: never Alcohol use details: occasional Substance use: current Substance use type: marijuana Other substance usage details: gummies Do You Feel Safe in your Home?: Yes Lack of Transportation: No Lack of Food: Sometimes True Current Housing: I Have Housing Concerned About Future Housing: No Difficulty Paying Gas/Electric Bills: YES Difficulty Paying for Meds: No 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
[2023-05-08] MEDS: ceFAZolin SODIUM 2 GM/20 ML SW SYRINGE IV PUSH (07:25)
[2023-05-08] MEDS: BUPivacaine HCL 0.5% 10 ML AMP INFILTRATE (07:53)
[2023-05-08 08:07] VITALS: BP 112/57; PULSE 87; RESP 18; O2SAT 100
[2023-05-08 08:30] VITALS: BP 114/73; PULSE 84; RESP 16; O2SAT 100
[2023-05-08 08:50] VITALS: BP 138/85; PULSE 79; RESP 18; O2SAT 100
--- NOTE | 2023-05-08 09:25 | WPDANESPN ---
Anes - Prog Note Post-Op Date/Time: 05/08/23 09:25 Cardiovascular status: normal Respiratory status: normal Airway patency: baseline Mental status: baseline Post-Op hydration status: normal Vital Signs: Last Vital Signs Temp 36.8 C 05/08/23 06:37 Pulse 79 05/08/23 08:50 Resp 18 05/08/23 08:50 BP 138/85 05/08/23 08:50 Pulse Ox 100 05/08/23 08:50 O2 Del Method Room Air 05/08/23 08:50 Pain Score (VAS): 04/02 I/O: Intake & Output 05/07/23 05/08/23 05/08/23 23:59 07:59 15:59 Intake Total 100 Balance 100 Patient Feedback: Patient satisfied with anesthetic care.
== END 2023-05-08 09:03 | disposition home or self-care (01) ==
PROVIDERS: PCP Family Medicine; Visit Provider Plastic Surgery
PROC: 01N54ZZ Release Median Nerve, Percutaneous Endoscopic Approach (ICD-10-PCS; CPT 29848; principal; 2023-05-08 07:30)
PROC: (CPT 29848; 2023-05-08 07:30)
DX: G56.22 Lesion of ulnar nerve, left upper limb (principal); G56.02 Carpal tunnel syndrome, left upper limb
CPT/HCPCS: 29848; 64718

== ENCOUNTER 2023-09-05 07:27 | Outpatient (CLI) | payer OTHER, SELFPAY ==
--- NOTE | ~2023-09-05 | MR_ITS ---
MRI of the cervical spine Clinical History: Radiculopathy Technique: Axial T2-weighted and gradient images, and sagittal T1-weighted, T2-weighted, and STIR shane ges were acquired. Findings: There is straightening of the normal cervical lordosis. No fracture or subluxation seen. No suspicious bone marrow signal abnormality seen. At C2-C3, there is no disc bulge or herniation. There is no spinal canal stenosis, cord compression, or neural foraminal narrowing. At C3-C4, there is disc osteophyte complex centrally, which mildly compresses the ventral cord, espec ially the left side. Bilateral neural foramina are probably preserved. At C4-C5, there is central disc osteophyte complex resulting in mild canal stenosis and mild ventral cord compression. There is bilateral neural foraminal narrowing, mild, with mild bilateral facet arth ropathy. At C5-C6, there is degenerative disc narrowing. Disc osteophyte complex centrally results in mild can al stenosis and mild ventral cord compression. There is significant bilateral neural foraminal narrow ing with bilateral facet arthropathy, right worse than left. At C6-C7, there is disc osteophyte complex, resulting canal stenosis and mild compression of the vent ral cord. Probable minimal bilateral neural foraminal narrowing. No abnormal signal seen in the spinal cord. Paravertebral soft tissues are unremarkable. Impression: Advanced degenerative spondylosis, especially from C3 through C6-C7 level. Please see details above. Reviewed, dictated and finalized at [facility]. Impression: Advanced degenerative spondylosis, especially from C3 through C6-C7 level. Plea se see details above.
== END 2023-09-05 07:28 | disposition home or self-care (01) ==
PROVIDERS: PCP Family Medicine; Visit Provider Neurological Surgery
DX: M47.892 Other spondylosis, cervical region (principal); G95.9 Disease of spinal cord, unspecified
CPT/HCPCS: 72141

== ENCOUNTER 2023-09-19 12:16 | Outpatient (CLI) | payer OTHER, SELFPAY ==
--- NOTE | 2023-09-19 12:30 | ECG_ITS ---
Test Date: 2023-09-19 12:36:23 Measurements Intervals [place] Rate: 74 P: 9 FL: 146 QRS: -14 QRSD: 105 T: 13 QT: 365 QTc: 406 Interpretive Statements SINUS RHYTHM LOW QRS VOLTAGE IN PRECORDIAL LEADS [QRS DEFLECTION < 1.0 mV IN CHEST LEADS] POOR R-WAVE PROGRESSION ABNORMAL ECG WARNING: DATA QUALITY MAY AFFECT INTERPRETATION No previous ECG available for comparison Electronically Signed On 09-19-2023 15:52:32 CDT by Silvestre Patiño M.D.
[2023-09-19 12:56] LABS: INR 1.1; Prothrombin Time 14.5 Seconds (11.1-14.7)
[2023-09-19 12:57] LABS: Partial Thromboplastin Time 29.5 Seconds (22.3-36.8)
== END 2023-09-19 12:17 | disposition home or self-care (01) ==
LOC: ANHSURGERY 12:20
PROVIDERS: PCP Family Medicine; Visit Provider Neurological Surgery
DX: Z01.818 Encounter for other preprocedural examination (principal); M54.12 Radiculopathy, cervical region; I10 Essential (primary) hypertension; R94.31 Abnormal electrocardiogram [ECG] [EKG]
CPT/HCPCS: 36415; 85610; 85730; 86850; 86900; 86901; 93005

== ENCOUNTER 2023-09-24 15:31 | Inpatient (IN) | payer OTHER, SELFPAY ==
[2023-09-19 09:09] VITALS: BMI 37.9
--- NOTE | 2023-09-19 09:17 | PC.NURSE ---
Report to the Outpatient Waiting Room, entrance under the green pavilion located off [facility], at time _0730_ on date _03-34-1856_. Planned Procedure Time: _0930_. Time changes happen often and if your time is changed the preop area will call you the afternoon before. - You and your visitor will be asked to self-screen and do not enter if you have any COVID symptoms. - A mask is optional within the hospital at this time. Patients may have clear liquids (water, carbonated beverages, clear teas, apple juice) until 3 hours prior to surgery with a maximum of 20 ounces. - No food from midnight until time of surgery Take the following medications with a SIP of water the morning of surgery: ____Amlodipine, Gabapentin and Flonase DO NOT STOP ANY OF YOUR OTHER PRESCRIPTION MEDICATIONS PRIOR TO SURGERY ?EXCEPT THE FOLLOWING Medications to discontinue per physician All vitamins Date to take last [id number] Newton's office if need to stop Celebrex. Please no make-up, nail uruguayan, hairspray, perfume, deodorant, or body powder the day of surgery. No jewelry (including any body piercings) or valuables the day of surgery, leave them at home. Please take a shower or bath the night before, or the morning of, surgery with an antibacterial soap. Wear comfortable, loose fitting clothing. - Jewelry must be removed prior to entering the operating room. Rings and piercings that are not removed may be cut off. - The hospital will not accept responsibility for valuables. - Please leave all valuables, including medications, at home the day of surgery. If you are going home after surgery, a licensed furniture mover driver must drive you home. - NO public transportation without another adult if you receive anesthesia. - We recommend that an adult stay with you for 24 hours following discharge. - We also recommend that you do not drive, make important decision, drink alcoholic beverages, or take any drugs that were not prescribed by your health care provider for at least 24 hours after your discharge time. Follow any additional instructions given to you from your surgeon. If you or anyone in your household have experienced Covid symptoms in the past week, please notify your surgeon or the nurse liaison at the phone number below for possible testing. Telephone instructions given to __Teresa and asked if any additional questions and then verbalized understanding. Patient advised to call surgeon office or pre surgery nurse liaison [phone] if any additional questions.
[2023-09-24] VITALS (13 sets, daily range): BP systolic 108–145; BP diastolic 63–90; PULSE 73–94; RESP 14–20; TEMP 36.4–36.5; O2SAT 94–100
--- NOTE | ~2023-09-24 | XR_ITS ---
EXAMINATION: XR surgery orthopedic DATE: 09/24/2023 14:54 INDICATION: Anterior cervical discectomies and fusion TECHNIQUE: 2 fluoroscopic images of the cervical spine were obtained during procedure performed by Dr Ivan Guzmán. Radiologist was not present for the imaging or procedure. The amount of fluoroscopy time u sed during this procedure was 1.2 minutes. COMPARISON: None. FINDINGS: Images demonstrate multilevel cervical discectomies at 4 contiguous levels in the mid to lower cervic al spine with interbody fusion devices and anterior plate and screw fixation at each level. This appe ars to extend from C3-C7 however definitive determination of these levels is limited on the provided imaging. Likely endotracheal tube projects over the midline of the anterior neck. IMPRESSION: 1. Fluoroscopy utilized during placement of a multilevel instrumented mid to lower cervical anterior spinal fusion extending across 4 consecutive disc spaces. See procedure note for further detail. Reviewed, dictated and finalized at location B. IMPRESSION: 1. Fluoroscopy utilized during placement of a multilevel instrumented mid to lo wer cervical anterior spinal fusion extending across 4 consecutive disc spaces. See procedure note for further detail.
--- NOTE | 2023-09-24 08:21 | WPDANESEPPF ---
Anes - Initial Pre Proc Eval Procedure: Operation Date: 09/24/23 09:30 Proposed Procedures p Anterior Cervical Discectomy and Fusion C3-4, C4-5, C5-6, C6-7 - Su Guzmán MD Date/Time: 09/24/23 08:21 Surgeon: Su Guzmán MD Pre Op Diagnosis: cervical mylopathy and radiculopathy Patient Data Age: 53 Gender: F Height: 1.57 m Weight: 94 kg Allergies Allergy/AdvReac Type Severity Reaction Status Date / Time cefaclor AdvReac Mild Cough Verified 09/24/23 08:39 ciprofloxacin AdvReac Mild Cough Verified 09/24/23 08:39 Home Medications Medication Instructions Recorded Confirmed Type acetaminophen 500 mg capsule 500 mg PO Q6H PRN Pain 01/24/21 09/24/23 History multivitamin 1 tablet PO DAILY 01/24/21 09/24/23 History tamoxifen 20 mg tablet 20 mg PO DAILY 01/24/21 09/24/23 History vitamin E 200 unit capsule 200 unit PO DAILY 01/24/21 09/24/23 History loratadine 10 mg tablet (Claritin) 10 mg PO DAILY #30 tabs 06/28/21 09/24/23 Rx fluticasone propionate 50 1 spray intranasal BID #16 grams 07/10/22 09/24/23 Rx mcg/actuation nasal spray,suspension losartan 100 mg tablet 100 mg PO DAILY #90 tabs 08/13/22 09/24/23 Rx ergocalciferol (vitamin D2) 1,250 1,250 mcg PO WEEKLY #14 caps 01/17/23 09/24/23 Rx mcg (50,000 unit) capsule celecoxib 200 mg capsule (Celebrex) 200 mg PO BID #60 caps 02/17/23 09/24/23 Rx chlorthalidone 25 mg tablet 25 mg PO QAM #90 tabs 04/01/23 09/24/23 Rx gabapentin 400 mg capsule See Rx Instructions PO BID #90 caps 06/16/23 09/24/23 Rx amlodipine 5 mg tablet 5 mg PO DAILY #30 tabs 07/01/23 09/24/23 Rx hydrocodone 7.5 mg-acetaminophen 1 tablet PO Q6H PRN pain #30 tabs 08/19/23 09/24/23 Rx 325 mg tablet potassium chloride 10 mEq 10 meq PO .M W F #30 tabs 08/20/23 09/24/23 Rx tablet,extended release cyanocobalamin (vitamin B-12) 5,000 mcg sublingual DAILY 09/19/23 09/24/23 History 5,000 mcg sublingual tablet (Vitamin B-12) oxybutynin chloride 5 mg tablet 5 mg PO DAILY 09/19/23 09/24/23 History polyethylene glycol 3350 17 17 g PO DAILY PRN Constipation 09/19/23 09/24/23 History gram/dose oral powder (Miralax) Patient hx anesthesia problems: none Family hx anesthesia problems: none Results Review: All pre-operative results and documents have been reviewed as part of the pre-operative evaluation. [facility] Past Medical History Medical History Allergic rhinitis (08/03/15) Breast cancer Cervical disc disease Colon cancer screening Depression Encounter for immunization Essential (primary) hypertension Gastroesophageal reflux disease Hyperlipidemia Sleep apnea Vitamin B12 deficiency Vitamin D deficiency Surgical History Surgical History History of lumpectomy (~03/2020) alissa 5 and 18 - right breast - breast cancer Previous back surgery Family History Family History Mother Hypertension Grandparent Family history of malignant neoplasm Social History Social History Smoking status: Never smoker Second hand tobacco smoke exposure: No Alcohol intake: current Alcohol use details: occasional Substance use: current Substance use type: marijuana Other substance usage details: Edibles for pain once or twice a month. Do You Feel Safe in your Home?: Yes Lack of Transportation: No Lack of Food: Sometimes True Current Housing: I Have Housing Concerned About Future Housing: No Difficulty Paying Gas/Electric Bills: YES Difficulty Paying for Meds: No Currently Unemployed: Decline to Answer Education: High School Diploma/GED Difficulty w/ Childcare or Family Care: No Living arrangements: with family Occupation/Education: unemployed Gender identity (if verbalized by the patient): Female Sexual Orientation (if
[2023-09-24] MEDS: LACTATED RINGERS 1,000 ML 30 ML IV CONT ×2 (08:48→15:15)
--- NOTE | 2023-09-24 09:30 | WPDHPUPDATE1 ---
History and Physical Update Update Date/Time: 09/24/23 09:30 History and Physical has been reviewed, including an updated exam of the patient. There are NO changes in the patient's condition. Risks, benefits, and alternatives have been discussed and questions answered. Patient agrees to proceed with procedure.
--- NOTE | 2023-09-24 09:30 | PM.IMHP ---
H&P: [facility] History of Present Illness Date/Time: 09/24/23 09:30 Chief Complaint: neck pain, myelopathic symptoms Narrative: Ms. Burnett is a 53-year-old female with history of breast cancer who returns for scheduled follow-up of her cervical spine. I have been following her for the last 9 months for both lower back and neck symptoms. She notably has a history of a right L4-5 hemilaminectomy for resection of a synovial cyst at [facility] in March 2021 during which she was told she had an injury to a nerve, and since that time, she has had pain and paresthesias involving the entire right leg and foot. She had an EMG performed after surgery showing a chronic right L5 denervation. She did do physical therapy and saw pain management after surgery which was not helpful. She is no longer working because of the symptoms. I have also been following her for neck pain that radiates into the arms, worse on the right side, that can be shocking at times. She describes weakness in her hands and difficulty opening bottles and jars. She did have bilateral carpal and cubital tunnel surgeries which were not helpful for her symptoms, and she thinks that her symptoms have actually worsened in the last few months. She has had longstanding issues with balance as well as urinary incontinence. She is supposed to follow-up with her mechanic welder for possible hysterectomy versus sling for a prolapsed uterus. She does not see this physician until October. She notably had a recent DEXA scan in October that showed normal bone density. She does not take any blood thinners. She does not smoke. She does take hydrocodone 7.5 mg on a daily basis for pain. She also uses edibles for pain control as well. She was recently approved on disability and is no longer working Review of Systems Review of Systems: All systems reviewed & are unremarkable except as noted in HPI and below PMFSH Past Medical History Medical History Allergic rhinitis (08/03/15) Breast cancer Cervical disc disease Colon cancer screening Depression Encounter for immunization Essential (primary) hypertension Gastroesophageal reflux disease Hyperlipidemia Sleep apnea Vitamin B12 deficiency Vitamin D deficiency Surgical History Surgical History History of lumpectomy (~03/2020) alissa 5 and 18 - right breast - breast cancer Previous back surgery Family History Family History Mother Hypertension Grandparent Family history of malignant neoplasm Social History Social History Smoking status: Never smoker Second hand tobacco smoke exposure: No Alcohol intake: current Alcohol use details: occasional Substance use: current Substance use type: marijuana Other substance usage details: Edibles for pain once or twice a month. Do You Feel Safe in your Home?: Yes Lack of Transportation: No Lack of Food: Sometimes True Current Housing: I Have Housing Concerned About Future Housing: No Difficulty Paying Gas/Electric Bills: YES Difficulty Paying for Meds: No Currently Unemployed: Decline to Answer Education: High School Diploma/GED Difficulty w/ Childcare or Family Care: No Living arrangements: with family Occupation/Education: unemployed Gender identity (if verbalized by the patient): Female Sexual Orientation (if Verbalized by the Patient): Straight or Heterosexual Spiritual care concerns: No Agree to blood products: Yes Meds Home Medications and Allergies Home Medications Medication Instructions Recorded Confirmed Type acetaminophen 500 mg capsule 500 mg PO Q6H PRN Pain 01/24/21 09/24/23 History multivitamin 1 tablet PO DAILY 01/24/21 09/24/23 History tamoxifen 20 mg tablet 20 mg PO DAILY 01/24/21 09/24/23 Histo
[2023-09-24] MEDS: ceFAZolin 2 GM/D5W 50 ML 2 GM/50 ML BAG IVPB ×2 (09:56→19:57)
[2023-09-24] MEDS: BUPIVACAINE/EPINEPHRINE 0.5% 10 ML VIAL 20 ML INFILTRATE (10:59)
[2023-09-24] MEDS: ceFAZolin SODIUM 1 GM VIAL 2 GM IV PUSH (14:53)
--- NOTE | 2023-09-24 15:36 | PM.OP ---
Procedure Note - Brief Procedure Note - Brief Date of procedure: 09/24/23 cervical mylopathy and radiculopathy Post-op diagnosis: Same Procedure performed: 1. ACDF C3-4, C4-5, C5-6, C6-7 2. Use of microscope 3. Use of C-arm for fluoroscopy Surgeon: Su Guzmán MD Anesthesia: GETA Findings: Successful ACDF C3-7. Two separate incisions made to access C3-4, C4-5 and then C5-6, C6-7. Two separate plates used Estimated blood loss (mL): 100 Drains: No Packing: No Pathology: None sent Complications: No immediate complications Condition: Stable Disposition: PACU
--- NOTE | 2023-09-24 15:57 | W.PM.PROC2 ---
Procedure Note - Detailed Date of Procedure 09/24/23 Pre-op Diagnosis cervical mylopathy and radiculopathy Post-op Diagnosis Same Procedure Performed 1. Anterior cervical diskectomy C3-4, C4-5, C5-6, C6-7 2. Anterior cervical arthrodesis C3-4, C4-5, C5-6, C6-7 with i-Factor 3. Anterior cervical interbody placement at C3-4, C4-5, C5-6, C6-7 4. Use of microscope for microsurgical dissection 5. Use of C-arm for fluoroscopy Surgeon Su Guzmán MD [facility] Anesthesia General Indications Ms. Burnett is a 53-year-old female with history of breast cancer and previous right L4-5 hemilaminectomy who presents with neck pain with radiation into both arms, worse on the right side, weakness in her hands, urinary incontinence, and balance issues which has worsened last few months. On physical exam, she does have weakness of her hands and intrinsic muscles in particular. I re-reviewed her MRI cervical spine from last summer which shows central disc herniations at C3-4, C4-5, C5-6, and C6-7 causing moderate to severe central stenosis with spinal cord compression. She has severe right neuroforaminal stenosis in particular at C5-6 as well. She has a CT cervical spine that does not show evidence of OPLL but does show large anterior osteophytes at multiple levels. Given the progression of her symptoms, I recommended surgery in the form of ACDF C3-4, C4-5, C5-6, and C6-7. Risks including bleeding, pain, infection, weakness, paralysis, stroke, vocal cord damage, coma, and anesthetic risks were discussed. The patient provided written informed consent to proceed. Description of Procedure The patient was taken to the operating room and was transferred to the operating table in the supine position. General anesthesia was induced. Chavez catheter was placed. Pressure points were appropriately padded, and compression devices were placed on the patient's calves. A shoulder roll was placed. The appropriate level was confirmed with the C-arm XR imaging. The patient was prepped and draped in usual sterile fashion. Perioperative antibiotics were given. Time out was performed. Local anesthesia was injected into the planned incision site. Incision was made with a 10-blade scalpel on the right side of the neck. The subcutaneous tissue was undermined above the platysma with the Metzenbaum scissors. The platysma was sharply opened horizontally. Bleeding was controlled with the bipolar. The avascular plane to the spine was dissected sharply. The anterior border of the spine was located and exposed with sharp and blunt dissection. A spinal needle was used to localize the C6-7 disc space; this was confirmed on fluoroscopy. The longus coli muscles were elevated bilaterally with a bovie. This was repeated through a higher, second horizontal incision to better access the upper two cervical discs at C3-4 and C4-5. Once the C3, C4, C5, C6, and C7 vertebral bodies and adjacent intervertebral discs were adequately exposed, self-retaining retractors were placed through the superior incision. [place]dad pins were placed in the C3 and C4 vertebral bodies and were distracted. A 15-blade scalpel was used to incise the C3-4 disc. A combination of Kerrisons, currettes, and pituitary instruments were used to remove each disc. The microscope was draped and brought into the surgical field. The removal of disc and osteophytes were completed using a high-speed drill, multiple Kerrison punches, and currettes. The posterior longitudinal ligament was opened with a nerve hook and kerrison rongeurs until the neuroforamen bilaterally were adequately decompressed. Interbody trial instruments were used to determine the appropriate size for the prosthetic vertebral interbody cage. Hemostasis was achieved in the disc space with surgiflo and cottonoid patties. A 5mm interbody was filled with i-Factor and placed at C3-4. The caspar pin was removed from C3 and replaced in C5. Wax was placed in the caspar pin site. This process
--- NOTE | 2023-09-24 17:30 | ADMGEN ---
This patient, Teresa Burnett, was admitted to Medical Room 251-01. Patient/family oriented to hospital policies and general routines including ID bracelet, bed and alarms, visiting hours, pain management, procedures, bathroom and other care routines, personal items, smoking policy, room service/diet, and visiting hours. Information on how to activate the Rapid Response Team has been discussed. Patient/Family are encouraged to report perceived risks to care and to ask questions if they do not understand what they are told or what they should do.
[2023-09-24] MEDS: SODIUM CHLORIDE 0.9% IV 1,000 ML 100 ML IV CONT (17:47)
[2023-09-24] MEDS: MORPHINE SULFATE (*CRX) 2 MG/ML INJ IV PUSH (17:48)
[2023-09-24] MEDS: ONDANSETRON INJ 4 MG/2 ML VIAL IV PUSH (20:12)
[2023-09-24] MEDS: ACETAMINOPHEN 500 MG TABLET 1000 MG PO (23:19)
[2023-09-25] MEDS: ceFAZolin 2 GM/D5W 50 ML 2 GM/50 ML BAG IVPB ×2 (01:06→09:53)
[2023-09-25 02:21] VITALS: BP 151/85; PULSE 91; RESP 18; TEMP 36.7; O2SAT 100
[2023-09-25] MEDS: ACETAMINOPHEN 500 MG TABLET 1000 MG PO ×2 (05:05→12:28)
[2023-09-25] MEDS: SODIUM CHLORIDE 0.9% IV 1,000 ML 100 ML IV CONT (05:06)
[2023-09-25 05:38] LABS: Potassium 4.3 mmol/L (3.4-5.0)
[2023-09-25 06:09] VITALS: BP 152/83; PULSE 97; RESP 17; TEMP 36.3; O2SAT 99
[2023-09-25 08:00] VITALS: BP 150/82; PULSE 91; RESP 14; TEMP 37; O2SAT 100
[2023-09-25 08:15] LABS: Anion Gap 7 mmol/L (4-12); Blood Urea Nitrogen 9 mg/dL (7-17); Calcium 8.9 mg/dL (8.4-10.2); Carbon Dioxide 25 mmol/L (22-30); Chloride 110 mmol/L (98-107); Estimated CRCL calculation 87 ml/min; Estimated Glomerular Filt Rate > 60; Glucose 133 mg/dL (65-110); Potassium 4.3 mmol/L (3.4-5.0); Sodium 142 mmol/L (137-145)
[2023-09-25 08:16] LABS: Basophils Percent Auto 0.2 % (0.2-1.2); Hematocrit 35.8 % (37.0-47.0); Hemoglobin 11.8 g/dL (12.0-15.0); Immature Granulocyte Absolute 0.06 K/mm3 (0.00-0.031); Immature Granulocyte Percent A 0.6 % (0-0.5); Lymphocytes Absolute Auto 1.21 K/mm3 (0.9-3.2); Mean Corpuscular Hemoglobin 29.8 pg (26-34); Mean Corpuscular Volume 90.4 fl (80-100); Mean Platelet Volume 11.7 fl (7.4-10.4); Monocytes Absolute Auto 1.1 K/mm3 (0.1-0.6); Monocytes Percent Auto 10.9 % (2.6-8.5); Neutrophils Absolute Auto 7.7 K/mm3 (1.3-6.7); Neutrophils Percent Auto 76.3 % (45.5-73.1); Platelet Count Result 189 k/mm3 (150-375); Red Blood Count 3.96 M/mm3 (4.2-5.4); Red Cell Distribution Width 13.6 % (11.5-14.5); White Blood Count 10.1 K/mm3 (4.5-10.0)
[2023-09-25 09:23] VITALS: BP 148/80; PULSE 91; RESP 16; O2SAT 100
[2023-09-25] MEDS: CHLORTHALIDONE 25 MG TABLET PO (09:26)
[2023-09-25] MEDS: oxyBUTYnin CHLORIDE 5 MG TABLET PO (09:26)
[2023-09-25] MEDS: LOSARTAN POTASSIUM 100 MG TABLET PO (09:26)
[2023-09-25] MEDS: amLODIPine BESYLATE 5 MG TABLET PO (09:26)
[2023-09-25] MEDS: TAMOXIFEN CITRATE (*CHEMO) 10 MG TABLET 20 MG PO (09:26)
[2023-09-25] MEDS: LORATADINE 10 MG TABLET PO (09:26)
[2023-09-25] MEDS: DOCUSATE SODIUM 100 MG CAPSULE PO (09:26)
[2023-09-25] MEDS: CYCLOBENZAPRINE HCL 10 MG TABLET PO (09:34)
[2023-09-25] MEDS: oxyCODONE HCL (*CRX) 5 MG TAB IR PO (09:34)
[2023-09-25] MEDS: FLUTICASONE PROPIONATE 0.05% NA SPR 16 GM BTL (*BKC) 1 SPRAY NASAL (09:35)
[2023-09-25 12:00] VITALS: BP 144/70; PULSE 77; RESP 16; TEMP 36.9; O2SAT 98
--- NOTE | 2023-09-25 12:30 | WPDNEUROSGPN ---
Progress Note: A&P Assessment and Plan (1) Status post cervical arthrodesis: Code(s): Z98.1 - Arthrodesis status Status: Acute Plan -Discharge home today -Wound care and activity precautions reviewed at bedside -Follow up with me in clinic in 2 weeks Subjective Date/time seen: 09/25/23 12:30 Interval history: Doing well with expected pain at base of neck and into shoulders which is improved with medication. She notices some swallowing difficulty with solids but is not making any alterations to her diet. Ambulating in halls without difficulty. Voiding independently. Review of Systems Review of Systems: All systems reviewed & are unremarkable except as noted in HPI and below Exam Narrative: AOx4 Full strength in arms and legs Sensation intact Dressing c/d/i Objective Data Vital Signs Vital Signs: Vital Signs - 24 hr 09/24/23 15:15 09/24/23 15:30 09/24/23 15:45 Temperature 97.7 F Pulse Rate 73 83 83 Respiratory Rate 14 18 17 Blood Pressure 114/73 108/64 119/63 Pulse Oximetry 100 100 100 Oxygen Delivery Simple Face Mask Simple Face Mask Simple Face Mask Oxygen Flow Rate 10 10 10 09/24/23 16:00 09/24/23 16:15 09/24/23 16:30 Temperature Pulse Rate 83 84 83 Respiratory Rate 18 17 16 Blood Pressure 143/90 H 114/78 121/82 Pulse Oximetry 100 97 95 Oxygen Delivery Simple Face Mask Room Air Room Air Oxygen Flow Rate 10 09/24/23 16:42 09/24/23 17:00 09/24/23 17:15 Temperature 97.5 F L 97.5 F L Pulse Rate 82 88 91 Respiratory Rate 16 18 20 Blood Pressure 125/71 133/72 128/71 Pulse Oximetry 94 97 96 Oxygen Delivery Room Air Oxygen Flow Rate 09/24/23 17:45 09/24/23 17:22 09/24/23 18:45 Temperature 97.5 F L 97.6 F Pulse Rate 94 87 Respiratory Rate 20 19 Blood Pressure 145/70 H 141/70 H Pulse Oximetry 94 100 Oxygen Delivery Room Air Oxygen Flow Rate 09/24/23 22:23 09/25/23 02:21 09/25/23 06:09 Temperature 97.6 F 98.1 F 97.4 F L Pulse Rate 86 91 97 Respiratory Rate 16 18 17 Blood Pressure 141/79 H 151/85 H 152/83 H Pulse Oximetry 98 100 99 Oxygen Delivery Oxygen Flow Rate 09/25/23 08:00 09/25/23 09:18 09/25/23 09:23 Temperature 98.6 F Pulse Rate 91 91 Respiratory Rate 14 16 Blood Pressure 150/82 H 148/80 H Pulse Oximetry 100 100 Oxygen Delivery Room Air Oxygen Flow Rate 09/25/23 09:40 09/25/23 12:00 Temperature 98.4 F Pulse Rate 77 Respiratory Rate 16 Blood Pressure 144/70 H Pulse Oximetry 98 Oxygen Delivery Room Air Oxygen Flow Rate Intake/Output Intake/Output: Intake & Output 09/22/23 09/23/23 09/24/23 09/25/23 23:59 23:59 23:59 23:59 Intake Total 1150 1290 Output Total 1400 1400 Balance -250 -110 Meds/Results Medications: Active Medications Generic Name Dose Route Start Last Admin Trade Name Freq PRN Reason Stop Dose Admin Acetaminophen 1,000 mg 09/24/23 18:00 09/25/23 12:28 Acetaminophen 500 Mg Tablet PO 1,000 mg Q6H DOMENIC Administration Al Hydrox/Mg Hydrox/Simethicone 20 ml 09/24/23 15:31 Mag Hydrox/Al Hydrox/Simeth 30 Ml Udc PO Q4H PRN Indigestion/Heartburn Amlodipine Besylate 5 mg 09/25/23 09:00 09/25/23 09:26 Amlodipine Besylate 5 Mg Tablet PO 5 mg DAILY DOMENIC Administration Bisacodyl 10 mg 09/24/23 15:31 Bisacodyl 10 Mg Suppository RECTAL DAILY PRN Constipation Chlorthalidone 25 mg 09/25/23 09:00 09/25/23 09:26 Chlorthalidone 25 Mg Tablet PO 25 mg QAM DOMENIC Administration Cyclobenzaprine HCl 10 mg 09/24/23 15:34 09/25/23 09:34 Cyclobenzaprine Hcl 10 Mg Tablet PO 10 mg TID PRN Administration Muscle Spasms Docusate Sodium 100 mg 09/24/23 21:00 09/25/23 09:26 Docusate Sodium 100 Mg Capsule PO 100 mg Q12HR DOMENIC Administration Fluticasone Propionate 1 spray 09/24/23 17:00 09/25/23 09:35 Fluticasone Propionate 0.05% Na Spr 16 Gm Btl (*Bkc) NASAL 1 spray BID DOMENIC Adminis
--- NOTE | 2023-09-25 13:11 | WPDANESPN ---
Anes - Prog Note Post-Op Date/Time: 09/25/23 13:11 Cardiovascular status: normal Respiratory status: normal Airway patency: baseline Mental status: baseline Post-Op hydration status: normal Vital Signs: Last Vital Signs Temp 36.9 C 09/25/23 12:00 Pulse 77 09/25/23 12:00 Resp 16 09/25/23 12:00 BP 144/70 H 09/25/23 12:00 Pulse Ox 98 09/25/23 12:00 O2 Del Method Room Air 09/25/23 09:40 O2 Flow Rate 10 09/24/23 16:00 Pain Score (VAS): 05/31 I/O: Intake & Output 09/24/23 09/25/23 09/25/23 23:59 07:59 15:59 Intake Total 150 1050 240 Output Total 1400 1400 Balance -1250 -350 240 Laboratory Tests 09/25/23 05:20 09/25/23 05:23 09/25/23 09/25/23 05:20 05:23 WBC 10.1 H RBC 3.96 L Hgb 11.8 L Hct 35.8 L MCV 90.4 MCH 29.8 MCHC 33.0 RDW 13.6 Plt Count 189 MPV 11.7 H Immature Gran % (Auto) 0.6 H Neut % (Auto) 76.3 H Lymph % (Auto) 12.0 L Isabela % (Auto) 10.9 H Eos % (Auto) 0.0 Baso % (Auto) 0.2 Lymph # (Auto) 1.21 Isabela # (Auto) 1.1 H Eos # (Auto) 0.0 Baso # (Auto) 0.0 Abs Immat Gran (auto) 0.06 H Absolute Neuts (auto) 7.7 H Absolute Nucleated RBC 0.000 Nucleated RBC % 0.0 Sodium 142 Potassium 4.3 4.3 Chloride 110 H Carbon Dioxide 25 Anion Gap 7 BUN 9 Creatinine 0.70 Estim Creat Clear Calc 87 Estimated GFR > 60 Glucose 133 H Calcium 8.9 Post-procedural complaints: none Patient Feedback: Patient satisfied with anesthetic care.
--- NOTE | 2023-10-01 21:01 | PM.DS ---
DS: Admitting Diagnosis Discharge Date 09/25/23 Admitting Diagnosis Cervical myelopathy, cervical radiculopathy DS: Discharge Diagnosis Discharge Diagnosis (1) Status post cervical arthrodesis: Code(s): Z98.1 - Arthrodesis status Status: Acute (2) Cervical myelopathy: Code(s): G95.9 - Disease of spinal cord, unspecified Status: Acute DS: Summary Hospital Course Hospital Course: Ms. Burnett presented on September 23 for surgery; please see the operative note for more details. She was transferred to the floor after surgery. She mobilized with therapy who cleared her for discharge home. She was able to swallow without difficulty. Her neck pain was controlled with medications. She reported some improvement in her arm pain. She was voiding independently. She was determined ready for discharge home on POD1. Time Spent with Patient Time attestation: Total time spent providing and/or coordinating discharge services: Discharge Plan Discharge Consulting providers: Rocio Mccabe; Tate Albright; Jad Israel Discharging Clinician: Su Guzmán Patient Disposition: Home, Self-Care Activity: other - see discharge instructions Diet: as tolerated Discharge Instructions: Discharge Instructions Procedure: Anterior Cervical Diskectomy and Fusion (ACDF) Your doctor removed one or more discs from your neck, to remove pressure from the spinal cord or nerve roots, and then fused your spine using a small metal plate and a cage filled with synthetic bone. Here are some instructions to follow upon discharge from the hospital to help in your recovery: Activity: Until released by your doctor, you should not return to work. You should rest at home and let your body heal. Taking short walks is encouraged, but avoid strenuous exercise. Do not jog, run, lift weights, bicycle, or participate in any other exercises unless specifically allowed by your doctor. Most importantly, avoid lifting objects heavier than a telephone book or a carton of milk as this places a strain on your neck. If possible, avoid household activities that involve lifting such as laundry, grocery shopping, childcare. Try to arrange for help from friends and family for these activities while your neck heals. You should not drive for 7-10 days, until you are both off of narcotics and your neck has loosened up enough to safely check your blind spots. Your incision is covered with skin glue. This will typically peel off on its on in 14 days. You may shower starting on post-operative day 2 (Friday). After showering, lightly dab your wound dry. Do not take baths or sit in a hot tub or pool until approved by your doctor at your follow-up appointment. DO NOT SMOKE TOBACCO. Smoking has been proven to interfere with the normal healing of the bones in your neck. Smoking will dramatically reduce the success rate of your surgery. Diet: You can return to your usual diet, unless instructed otherwise by your doctor. However, for the first few weeks, some foods will be harder to swallow than others. In general, softer foods such as broths, jello, yogurt, pudding are easier. Harder foods, such as steak, chicken, bread, rice may be more difficult for the first few weeks and should be avoided. You may notice some pain with swallowing in the first month after surgery- this is NORMAL. During the operation, a breathing tube is placed down your throat by the anesthesiologist. In addition, your throat is gently pulled to one side to perform the surgery. For both of these reasons, your throat will be sore. Some patients also notice the sensation of having a ?lump? in their throat- this can be normal. However, if you are having difficulty swallowing liquids, call your doctor immediately. Medications: You should resume taking all of your normal medications, unless instructed otherwise by your doctor. However, you should not take anti-inflamm
== END 2023-09-25 15:25 | disposition home or self-care (01) | DRG 321 ==
LOC: ANH2MED 17:12
PROVIDERS: Admitting Provider Neurological Surgery; PCP Family Medicine; Visit Provider Neurological Surgery
PROC: 0RG20A0 Fusion of 2 or more Cervical Vertebral Joints with Interbody Fusion Device, Anterior Approach, Anterior Column, Open Approach (ICD-10-PCS; CPT 63030; principal; 2023-09-24 09:30)
DX: M50.11 Cervical disc disorder with radiculopathy, high cervical region (principal); M50.121 Cervical disc disorder at C4-C5 level with radiculopathy; M50.122 Cervical disc disorder at C5-C6 level with radiculopathy; M50.123 Cervical disc disorder at C6-C7 level with radiculopathy; M50.01 Cervical disc disorder with myelopathy, high cervical region; M50.021 Cervical disc disorder at C4-C5 level with myelopathy; M50.022 Cervical disc disorder at C5-C6 level with myelopathy; M50.023 Cervical disc disorder at C6-C7 level with myelopathy; I10 Essential (primary) hypertension; E78.5 Hyperlipidemia, unspecified; E55.9 Vitamin D deficiency, unspecified; E53.8 Deficiency of other specified B group vitamins; K21.9 Gastro-esophageal reflux disease without esophagitis; F32.A Depression, unspecified; Z85.3 Personal history of malignant neoplasm of breast
CPT/HCPCS: 36415; 80048; 84132; 85025; 97161; 97165; 97530; 97535; 99199; A9270; C1713; J0330; J0690; J1100; J1170; J2250; J2270; J2405; J2704; J3010; J7030; J7120

== ENCOUNTER 2023-11-12 14:21 | Emergency (ER) | payer OTHER, SELFPAY ==
--- NOTE | ~2023-11-12 | XR_ITS ---
3 VIEWS LUMBAR SPINE Ordering provider: Lindsay Stewart APRN History: . fall today, slide down stairs on posterior, coccyx pain most . Comparison: None. FINDINGS: VERTEBRAL BODIES: No visible fracture or subluxation. DISK SPACES: Normal. Facet joint disease at the level of L4-L5 and L5-S1. SOFT TISSUES: Normal. IMPRESSION: No acute osseous abnormality lumbar spine. Consider follow up MRI lumbar spine if there is concern for spinal stenosis/neural impingement. Reviewed, dictated and finalized at location A. IMPRESSION: No acute osseous abnormality lumbar spine. Consider follow up MRI lumbar spine if there is concern for spinal stenosis/carl ral impingement.
--- NOTE | ~2023-11-12 | XR_ITS ---
XR sacrum coccyx min 2V Ordering provider: Lidnsay Stewart APRN History: . fall x today, slide down stairs, coccyx pain mostly . Comparison: August 07, 2018 FINDINGS: BONES: Fracture in the first and possibly the second segment of the coccyx is highly suggestive as se en in the AP view. JOINTS: The sacroiliac joint spaces are normal. SOFT TISSUES: Normal. Contraceptive wires are seen in the pelvis IMPRESSION: Highly suggestive fracture of the first and second coccygeal segments. Reviewed, dictated and finalized at location A.
--- NOTE | ~2023-11-12 | XR_ITS ---
XR cervical spine 4-5V Ordering provider: Lindsay Stewart APRN History: . recent surgery, then fall x today, coccyx area pain mostly . Comparison: None. FINDINGS: VERTEBRAL BODIES: Postoperative changes seen anteriorly. Normal height and alignment. No visible frac ture or subluxation. The dens is intact. DISK SPACES: Disc spacers seen at the levels of C3-C4, C4-C5 6 and C6-C7. PARASPINOUS SOFT TISSUES: No prevertebral soft tissue swelling. IMPRESSION: No acute osseous abnormality cervical spine. Multilevel postoperative changes Reviewed, dictated and finalized at location A.
[2023-11-12 14:32] VITALS: BP 148/89; PULSE 88; RESP 20; TEMP 36.5; O2SAT 100
--- NOTE | 2023-11-12 14:32 | ED.GENADULT ---
HPI - General Adult General Chief complaint: Fall Stated complaint: FALL Time Seen by Provider: 11/12/23 14:33 History of Present Illness HPI narrative: Patient presents with complaints of lumbosacral pain status post fall down 3 or 4 steps 3 nights ago. She reports she landed on her bottom and went down the steps. She denies any head trauma. She does report that she had recent cervical surgery, she denies any neck pain, but is concerned that her fall may have dislodged some of her hardware. She continues to go to physical therapy and participate without any added difficulty. She does report that she has tingling to right leg at baseline due to another old back injury, she reports the tingling has been worse since this fall. She denies any numbness. She does have history of neuropathy. Has not been taking any additional medications for her symptoms, takes hydrocodone and Neurontin at baseline. No other concerns today Related Data Home Medications Medication Instructions Recorded Confirmed acetaminophen 500 mg capsule 500 mg PO Q6H PRN Pain 01/24/21 11/12/23 multivitamin 1 tablet PO DAILY 01/24/21 11/12/23 tamoxifen 20 mg tablet 20 mg PO DAILY 01/24/21 11/12/23 vitamin E 200 unit capsule 200 unit PO DAILY 01/24/21 11/12/23 cyanocobalamin (vitamin B-12) 5,000 mcg sublingual DAILY 09/19/23 11/12/23 5,000 mcg sublingual tablet (Vitamin B-12) oxybutynin chloride 5 mg tablet 5 mg PO DAILY 09/19/23 11/12/23 polyethylene glycol 3350 17 17 g PO DAILY PRN Constipation 09/19/23 11/12/23 gram/dose oral powder (Miralax) Allergies Allergy/AdvReac Type Severity Reaction Status Date / Time cefaclor AdvReac Mild Cough Verified 11/12/23 14:25 ciprofloxacin AdvReac Mild Cough Verified 11/12/23 14:25 Review of Systems Review of Systems: All systems reviewed & are unremarkable except as noted in HPI and below Constitutional: Constitutional: Reports no additional constitutional complaints ENT: Reports system reviewed and no additional complaints, except as documented Cardiovascular: Cardiovascular: Reports no additional cardiovascular complaints Respiratory: Respiratory: Reports no additional respiratory complaints Gastrointestinal: Gastrointestinal: Reports no additional gastrointestinal complaints Musculoskeletal: Musculoskeletal: Reports no additional musculoskeletal complaints and Reports as per HPI Neurologic: Reports system reviewed and no additional complaints, except as documented and Reports as per HPI [facility] Past Medical History Medical History Allergic rhinitis (08/03/15) Breast cancer Cervical disc disease Colon cancer screening Depression Encounter for immunization Essential (primary) hypertension Gastroesophageal reflux disease Hyperlipidemia Sleep apnea Vitamin B12 deficiency Vitamin D deficiency Surgical History Surgical History History of lumpectomy (~03/2020) mar 29 and 19 - right breast - breast cancer Previous back surgery Family History Family History Mother Hypertension Grandparent Family history of malignant neoplasm Social History Social History Smoking status: Never smoker Second hand tobacco smoke exposure: No Alcohol intake: never Alcohol use details: occasional Substance use: current Substance use type: other Other substance usage details: edibles Do You Feel Safe in your Home?: Yes Lack of Transportation: No Lack of Food: Sometimes True Current Housing: I Have Housing Concerned About Future Housing: No Difficulty Paying Gas/Electric Bills: No Difficulty Paying for Meds: No Currently Unemployed: No Education: High School Diploma/GED Difficulty w/ Childcare or Family Care: No Living arrangements: with family Occupation/Edu
[2023-11-12] MEDS: predniSONE 20 MG TABLET 60 MG PO (15:05)
== END 2023-11-12 15:50 | disposition home or self-care (01) ==
PROVIDERS: Emergency Provider Nurse Practitioner Family; PCP Family Medicine
DX: S32.2XXA Fracture of coccyx, initial encounter for closed fracture (principal); W10.9XXA Fall (on) (from) unspecified stairs and steps, initial encounter; I10 Essential (primary) hypertension; K21.9 Gastro-esophageal reflux disease without esophagitis; E78.5 Hyperlipidemia, unspecified; E53.8 Deficiency of other specified B group vitamins; Z85.3 Personal history of malignant neoplasm of breast; G62.9 Polyneuropathy, unspecified
CPT/HCPCS: 72050; 72100; 72220; 99214; G0463; J7512

== ENCOUNTER 2024-01-29 12:31 | Outpatient (CLI) | payer OTHER, SELFPAY ==
--- NOTE | ~2024-01-29 | XR_ITS ---
Cervical Spine: AP, lateral, open-mouth views Clinical History: Pain, radiculopathy COMPARISON: 11/12/2023 Findings: The normal lordotic curve is maintained. Stable extensive anterior and interbody fusion steph dware, extending from C3 through C7. Stable osseous orthopedic hardware alignment. No acute fracture or sublocation seen. Mild facet joint degenerative changes are present. Pre-vertebral soft tissues ar e unremarkable. Impression: No significant interval change. Stable extensive fusion of the cervical spine, as above. Reviewed, dictated and finalized at location M. ING MIXER TENDER Impression: No significant interval change. Stable extensive fusion of the cervical spine, as above.
== END 2024-01-29 12:32 | disposition home or self-care (01) ==
PROVIDERS: PCP Family Medicine; Visit Provider Neurological Surgery
DX: M54.12 Radiculopathy, cervical region (principal); Z98.1 Arthrodesis status
CPT/HCPCS: 72040

== ENCOUNTER 2024-04-27 11:16 | Outpatient (CLI) | payer OTHER, SELFPAY ==
--- NOTE | ~2024-04-27 | XR_ITS ---
Cervical Spine: AP, lateral, open-mouth views Clinical History: Arthrodesis COMPARISON: 01/29/2024 Findings: Stable extensive anterior and interbody fusion extending from C3 through C7, with anterior plates and screws, and disc fusion devices present. There is moderate degenerative disc narrowing at C2-C3. Impression: Stable extensive anterior and interbody fusion from C3 through C7. Moderate degenerative disc narrowing at C2-C3. Reviewed, dictated and finalized at [facility]. L[facility] [employer]ICINE CHAIR Impression: Stable extensive anterior and interbody fusion from C3 through C7. Moderate degenerative disc narrowing at C2-C3.
--- OUTSIDE RECORDS SUMMARY | 2024-04-27 12:00 | XMS_ITS | Clinical Summary ---
Author Organization [employer] [facility] Address [address] [place] [address] Care Team Providers Care Campaign Associate Name Role Phone Jessica Hardin MD Primary Care Provider [phone] Allergies Active Allergy Reactions Criticality Noted Date Comments Levonorgestrel-Ethinyl Estrad Cough Low 2021 Medications ELDERBERRY FRUIT AND FLOWER ORAL Take by mouth. Active acetaminophen (TYLENOL) 500 mg tablet Take 500 mg by mouth every 6 hours as needed. Active amLODIPine (NORVASC) 2.5 mg tablet Take 2.5 mg by mouth daily at bedtime. 12/27/2020 Active losartan (COZAAR) 50 mg tablet Take 50 mg by mouth daily at bedtime. 11/01/2020 Active tamoxifen (NOLVADEX) 20 mg tablet Take 20 mg by mouth daily at bedtime. 05/26/2020 Active HYDROcodone-geoff taminophen (NORCO) 5-325 mg tablet Take 1 Tablet by mouth every 4 hours as needed for Pain, Moderate. Active gabapentin (NEURONTIN) 300 mg capsule Take 1 Capsule (300 mg) by mouth 3 times daily. 90 Capsule 1 05/30/2021 Active ergocalciferol (VITAMIN D2) 50,000 unit capsule Take 50,000 Units by mouth every 7 days. 09/28/2021 Active loratadine (CLARITIN) 10 mg tablet Take 10 mg by mouth daily. prn 06/29/2021 Active VIT-IRON FUM-FOLIC AC ORAL Take by mouth daily. Active VITAMIN E ORAL Take by mouth daily. Active MULTIVITAMIN ORAL Take by mouth daily. Active Active Problems Problem Noted Date Diagnosed Date Synovial cyst of lumbar spine 01/22/2021 Spinal stenosis, lumbar mague on, with neurogenic claudication 01/22/2021 Status post lumbar spine ope rative procedure for decompression of spinal cord Social History Tobacco Use Types Packs/Day Years Used Date Smoking Tobacco: Never Smokeless Tobacco: Never Tobacco Cessation:Counseling Given: Not Answered Alcohol Use Standard Drinks/Week Comments Yes 1 (1 standard drink = 0.6 oz pur e alcohol) Comments No Sex and Gender Information Value Date Recorded Sex Assigned at Not on file Legal Sex Female 9:17 AM CDT Gender Identity Not on file Sexual Orientation Not on file Last Filed Vital Signs Vital Sign Reading Time Taken Comments Blood Pressure 144/85 11/22/2021 9:08 AM CDT Pulse 77 11/22/2021 9:08 AM CDT Temperature 36.7 ??C (98.1 ??F) 04/18/2021 12:[address] Respiratory Rate 17 04/18/2021 12:00 PM SOLUTIONS CONSULTANT Oxygen Saturation 97% 04/18/2021 12:00 PM SOLUTIONS CONSULTANT Inhaled Oxygen Concentration - - Weight 95.7 kg (211 lb) 11/22/2021 9:08 AM CDT Height 157.5 cm (5' 2 ) 11/22/2021 9:08 AM CDT Body Mass Index 38.59 11/22/2021 9:08 AM CDT Plan of Treatment Health Maintenance Due Date Last Done Comments DTAP/TDAP/TD VACCINES (1 - Tdap) 1990 HEPATITIS B VACCINES (1 of 3 - 19+ 3-dose series) 1990 CERVICAL CANCER SCREENING 2001 COLORECTAL SCREENING 01/25/2016 Colorectal Cancer Screening 01/25/2016 FIT-DNA Q 3 years 01/25/2016 FIT/FOBT Q 1 year 01/25/2016 Flex Sig/CT Colonography Q 5 years 01/25/2016 ZOSTER VACCINE (1 of 2) 2021 INFLUENZA VACCINE (#1) 2023 12/27/2020 BREAST CANCER SCREENING 02/01/2024 02/01/20 23, 01/21/2022, 10/31/2020 Medical Devices Implanted Type Area Edger Feeder Device Identifier Shelf Expiration Date Model / Serial / Lot Duragen + 1x1in Dp-1011 - [id number] Implanted:Qty: 1 on 04/17/2021 by Yamil Harden MD at [facility] Graft N/A: Spine Lumbar [employer] 11/22/2023 [id number] / / [id number] Hemostatic Surgifoam Sz12-7 1971 - [id number] Implanted:Qty: 1 on 04/17/2021 by Yamil Harden MD at [facility] Hemostatic N/A: Spine Lumbar [employer] 09/06/20241971 / / [id number] Hemostatic Surgiflo 8ml W/ Thrombin 299 - [id number] Implanted:Qty: 1 on 04/17/2021 by Yamil Harden MD at [facility] Hemostatic N/A: Spine Lumbar [employer] 07/21/2022 [id number] / / [id number] Insurance MEDICAID [place] RX EXPRESS S[employer]IP[employer] Express Advance Directives For more information, please contact: [phone] * Full Code (Latest Code Status on File) Date Activated Date Inactivated Comments 04/17/2021 1:53 PM 04/18/2021 7:46 PM Care Teams Campaign Associate Relationship Specialty Start Date End Date Jessica Hardin MD [address] [place] [id number] PCP - General Family Practice 01/22/21
--- OUTSIDE RECORDS SUMMARY | 2024-04-27 12:00 | XMS_ITS | Encounter Summary ---
Author Organization [facility] Address [address] [place] [address] Care Team Providers Care Rn Medicare Name Role Phone Jessica Hardin MD Primary Care Provider [phone] Reshma Simon MD Unavailable [phone] Katherine Wall MD Unavailable [phone] Faith Acevedo MD Unavailable [phone] Ji Bean MD, Russ Unavailable + [phone] Lilian Lind NP Unavailable + [phone] Katherine Wall MD Unavailable [phone] Encounter Details Date Type Department Care Team (Late st Contact Info) Description 07/06/2021 Documentation [facility] OP Physical Therapy [address] [address] Cristobal Packer, PT Social History Tobacco Use Types Packs/Day Years Used Date Smoking Tobacco: Never Smokeless Tobacco: Never Alcohol Use Standard Drinks/Week Comments Yes 1 (1 standard drink = 0.6 oz pur e alcohol) Comments No Sex and Gender Information Value Date Recorded Sex Assigned at Not on file Legal Sex Female 12:44 AM 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 Gender Identity Not on file Sexual Orientation Not on file documented as of this encounter Plan of Treatment Not on file documented as of this encounter Visit Diagnoses Not on filedocumented in this encounter Care Teams Rn Medicare Relationship Specialty Start Date End Date Jessica Hardin MD PCP - General Family Medicine 01/26/20 Reshma Simon MD [address] [facility] [address] [place] [address] Referring Physician Gynecology 01/26/20 Katherine Wall MD [facility] [address] [place] [address] Radiation Oncologist Radiation Oncology 12/27/20 Faith Acevedo MD [address] [address] Surgeon Surgical Oncology 12/27/20 Russ Workman Jr., MD [address] [address] Medical Oncologist/Pump Service Supervisor Medical Oncology 04/05/21 04/08/22 Lilian Lind NP [address] [facility] [address] [place], [place] [address] Nurse Practitioner Medical Oncology 04/09/22 Katherine Wall MD [address] [address] Radiation Oncologist Radiation Oncology 11/19/23 documented as of this encounter
--- OUTSIDE RECORDS SUMMARY | 2024-04-27 12:00 | XMS_ITS | Patient Health Summary ---
Author Organization [facility] Address [address] [facility] [place] [address] Care Team Providers Care Advanced Research Programs Director Name Role Phone Jessica Hardin MD Primary Care Provider [phone] Note [address] [facility],non-owned Affiliates and Associated Physician Practices is amultiple site organization consisting of ambulatory clinics and hospital sitesin [place], [place], [place] and [place]. This disclosure is being madepursuant to the Care Everywhere program and may not contain all information available regarding this patient. Last updated 17.[facility] [employer] Allergies * Levonorgestrel-Ethinyl Estrad(Cough,Unknown) -Low Criticality Medications * Be aware that medications may not be up to date on this document. Alwaysverify current medications with the patient. * amLODIPine (Norvasc) 5 MG tablet(Started 12/06/2023) Take 1 (one) tablet by mouth once daily * chlorthalidone (Hygroton) 25 MG tablet(Started 07/14/2023) Take 1 (one) tablet by mouth every morning * gabapentin (Neurontin) 400 MG capsule(Started 04/12/2023) TAKE 1 CAPSULE BY MOUTH EVERY MORNING AND 2 CAPSULES BY MOUTH AT BEDTIME * metoprolol succinate XL 24hr (Toprol XL) 25 MG tablet(Started 11/18/2023) Take 1 (one) tablet by mouth once daily * mirtazapine (Remeron) 7.5 MG tablet(Started 05/03/2023) * oxyBUTYnin (Ditropan) 5 MG tablet(Started 04/05/2023) Take 1 (one) tablet by mouth once daily * tamoxifen (Nolvadex) 20 MG tablet(Started 12/06/2023) * loratadine (Claritin) 10 MG tablet Take 1 (one) tablet by mouth once daily Active Problems Problem Noted Date Diagnosed Date Allergic rhinitis 07/11/2023 Episode of recurrent major depressive disorder 0 07/11/2023 HTN (hypertension) 07/11/2023 Lumbar radiculopathy 07/11/2023 Morbid obesity due to excess calories 07/11/2023 Spinal stenosis, lumbar mague on, with neurogenic claudication 01/22/2021 Synovial cyst of lumbar spine 01/22/2021 History of breast cancer 10/31/2020 Social History Tobacco Use Types Packs/Day Years Used Date Smoking Tobacco: Never Smokeless Tobacco: Never Tobacco Cessation:Counseling Given: Not Answered Alcohol Use Standard Drinks/Week Comments Not Currently 0 (1 standard drink = 0.6 oz pur e alcohol) Sex and Gender Information Value Date Recorded Sex Assigned at Not on file Gender Identity Not on file Sexual Orientation Not on file Last Filed Vital Signs Vital Sign Reading Time Taken Comments Blood Pressure 156/88 02/24/2024 11:17 AM TRACK LAYING SUPERVISOR Pulse - - Temperature 36.7 ??C (98.1 ??F) 02/10/2024 10:[address] Respiratory Rate - - Oxygen Saturation - - Inhaled Oxygen Concentration - - Weight 93.9 kg (207 lb) 02/24/2024 11:17 AM TRACK LAYING SUPERVISOR Height 165.1 cm (5' 5 ) 02/24/2024 11:17 AM TRACK LAYING SUPERVISOR Body Mass Index 34.45 02/24/2024 11:17 AM TRACK LAYING SUPERVISOR Procedures * MD INSERT NON-INDWELLING BLADDER(Performed 02/10/2024) Performed for Urge incontinence, Frequency of micturition, Nocturia * CULTURE URINE COMPREHENSIVE(Performed 02/10/2024) Performed for Urge incontinence, Frequency of micturition, Nocturia * MD FIT/INSERT INTRAVAG SUPPORT DEVICE(Performed 02/10/2024) Performed for Incomplete uterovaginal prolapse * URINALYSIS AUTO - POINT OF CARE (AMB) [facility](Performed 02/10/2024) Performed for Urge incontinence, Frequency of micturition, Nocturia Results * MD INSERT NON-INDWELLING BLADDER (02/10/2024 11:14 AM TRACK LAYING SUPERVISOR) Narrative Sterling Griffiths Che, MD - 02/10/2024 11:14 AM TRACK LAYING SUPERVISOR Sterling Griffiths Che, MD ? 02/10/2024 11:22 AM The patient was prepped with betadine (or with hibiclens or other antiseptic agent if allergic to topical iodine). She understood the rationale for the procedure and agreed to the procedure. A 14F short female catheter was then advanced into the urethra and urine was collected for bedside urinalysis as well as a urine culture and/or formal urinalysis as needed. The post void residual is as noted in the progress note, as are results of the dipstick taken. The patient tolerated the procedure well. Sterling Griffiths MD PROCEDURE/MINOR SURG ICAL ORDERABLES * CULTURE URINE COMPREHENSIVE (02/10/2024 11:14 AM TRACK LAYING SUPERVISOR) Culture [facility] Comment: ??CULTURE, URINE, SPECIAL ?Micro Number: ?[id number] ??Test Status: ? Final ??Specimen Source: ?? Urine, catheter ??Specimen Quality: ??Adequate ??Result: ?No Growth Test Performed at: [facility] ??[id number] KAELA SOLER MD Microbiology URINE SPECIMEN COLLECTION, CATHETERIZED / Unknown 02/10/2024 11:14 AM TRACK LAYING SUPERVISOR 02/11/2024 2:26 AM TRACK LAYING SUPERVISOR Sterling Griffiths MD LAB - MICROBIOLOGY O RDERABLES [address] [address] * MD FIT/INSERT INTRAVAG SUPPORT DEVICE (02/10/2024 11:13 AM TRACK LAYING SUPERVISOR) Narrative Sterling Griffiths Che, MD - 02/10/2024 11:13 AM TRACK LAYING SUPERVISOR Sterling Griffiths Che, MD ? 02/10/2024 11:22 AM #4 ring with floor Sterling Griffiths MD PROCEDURE/MINOR SURG ICAL ORDERABLES * URINALYSIS AUTO - POINT OF CARE (AMB) [facility] (02/10/2024) Glucose UA neg OTHER LAB Bilirubin UA POCT neg OTHER LAB Ketones UA POCT neg OTHER LAB Specific [place] UA 1.010 OTHER LAB Blood Urine POCT neg OTHER LAB pH UA 7.0 OTHER LAB Protein UA neg OTHER LAB Urobilinogen UA 0.2 OTHER LAB Nitrite UA neg OTHER LAB WBC UA neg OTHER LAB Urine URINE / Unknown 02/10/2024 Fa Paz Griffiths MD LAB - POINT OF CARE ORDERABLES OTHER LAB Care Teams Advanced Research Programs Director Relationship Specialty Start Date End Date Jessica Hardin MD [address] [place], [place] [id number] PCP - General Family Medicine 02/10/24
--- OUTSIDE RECORDS SUMMARY | 2024-04-27 12:00 | XMS_ITS | Clinical Summary ---
Author Organization [facility] Address [address] [facility] [place] [address] Care Team Providers Care Teacher Hearing Impaired Name Role Phone Jessica Hardin MD Primary Care Provider [phone] Source Comments [facility],non-owned Affiliates and Associated Physician Practices is amultiple site organization consisting of ambulatory clinics and hospital sitesin [place], [place], [place] and [place]. This disclosure is being madepursuant to the Care Everywhere program and may not contain all information available regarding this patient. Last updated 17.[facility] Allergies Active Allergy Reactions Criticality Noted Date Comments Levonorgestrel-Ethinyl Estrad Cough,Unknown Low Medications * Be aware that medications may not be up to date on this document. Alwaysverify current medications with the patient. Medication Sig Dispensed Refills Start Date End Date Status amLODIPine (Norvasc) 5 MG tablet Take 1 (one) tablet by mouth once daily 12/06/2023 Active chlorthalidone (Hygroton) 25 MG tablet Take 1 (one) tablet by mouth every morning 07/14/2023 Active gabapentin (Neurontin) 400 MG capsule TAKE 1 CAPSULE BY MOUTH EVERY MORNING AND 2 CAPSULES BY MOUTH AT BEDTIME 04/12/2023 Active metoprolol succinate XL 24hr (Toprol XL) 25 MG tablet Take 1 (one) tablet by mouth once daily 11/18/2023 Active mirtazapine (Remeron) 7.5 MG tablet 05/03/2023 Active oxyBUTYnin (Ditropan) 5 MG tablet Take 1 (one) tablet by mouth once daily 04/05/2023 Active tamoxifen (Nolvadex) 20 MG tablet 12/06/2023 Active loratadine (Claritin) 10 MG tablet Take 1 (one) tablet by mouth once daily Active Active Problems Problem Noted Date Diagnosed Date Allergic rhinitis 07/11/2023 Overview (02/10/2024): Last Assessment & Plan: Condition: stable Source of diagnosis: Medication and Diagnosis confirmed from PCP record and currently active Follow up in: Discussed the importance of continuing follow up with PCP for medicaation refills as well as annual screenings, immunizations and lab work Episode of recurrent major depressive disorder 0 07/11/2023 Overview (02/10/2024): Last Assessment & Plan: Condition: stable Source of diagnosis: Screenings/Questionnaires Mood Guidelines Problem: Depression Treatment Knowledge Goal: Member/caregiver/family will be able to start 2 treatment options for the management of depression Intervention: Member/caregiver/family will collaborate with PCP/Specialist to find the appropriate treatment to assist with depression symptoms and report any identified barriers to treatment Follow up in: Follow up with PCP/specialist as scheduled HTN (hypertension) 07/11/2023 Overview (02/10/2024): Last Assessment & Plan: Condition: stable Source of diagnosis: Medication and Diagnosis confirmed from PCP record and currently active Follow up in: Follow up with PCP/specialist as scheduled Lumbar radiculopathy 07/11/2023 Overview (02/10/2024): Last Assessment & Plan: Condition: stable Source of diagnosis: Diagnosis confirmed from PCP record and currently active Musculoskeletal Lower Back Pain Problem: LBP Pain Management Goal: Member will use at least 1 technique to self-manage their musculoskeletal low back pain at home to relieve/reduce pain symptoms and increase ability to do daily tasks/activities Interventions: Member will keep a pain diary to log down daily activities and monitor which one increase/decrease pain to share with PCP/Specialist at next appointment Follow up in: Follow up with PCP/specialist as scheduled Morbid obesity due to excess calories 07/11/2023 Overview (02/10/2024): Last Assessment & Plan: Condition: stable Source of diagnosis: Vital signs Co-morbidities: Hypertension Follow up in: Follow up with PCP/specialist as scheduled Spinal stenosis, lumbar mague on, with neurogenic claudication 01/22/2021 Overview (02/10/2024): Last Assessment & Plan: Condition: stable Source of diagnosis: Diagnosis confirmed from PCP record and currently active Follow up in: Follow up with PCP/specialist as scheduled Synovial cyst of lumbar spine 01/22/2021 History of breast cancer 10/31/2020 Overview (02/10/2024): Last Assessment & Plan: Condition: stable Follow up in: Follow up with PCP/specialist as scheduled Encounters Date Type Department Care Team Description 02/24/2024 11:15 AM FIELD HOCKEY COACH Office Visit [facility] - ARMY MANAGER [address], [facility] [address] [place] [address] Sterling Griffiths Che, MD Nocturia (Primary Dx); Incomplete uterovaginal prolapse; Urge incontinence; Frequency of micturition 02/24/2024 Travel 02/10/2024 11:00 AM FIELD HOCKEY COACH Office Visit [facility] - ARMY MANAGER [address], [facility] [address] [place] [address] Sterling Griffiths Che, MD Incomplete uterovaginal prolapse (Primary Dx); Urge incontinence; Frequency of micturition; Nocturia; Stress incontinence 02/10/2024 Travel from Last 3 Months Family History Medical History Relation Name Comments CAD (Coronary Artery Disease) Father CVA Mother Diabetes; unknown type Mother Cancer - Colon Other Cancer - Breast Sister Relation Name Status Comments Father Mother Other Sister Social History Tobacco Use Types Packs/Day Years [...] Comments Blood Pressure 156/88 02/24/2024 11:17 AM FIELD HOCKEY COACH Pulse - - Temperature 36.7 ??C (98.1 ??F) 02/10/2024 10:[address] Respiratory Rate - - Oxygen Saturation - - Inhaled Oxygen Concentration - - Weight 93.9 kg (207 lb) 02/24/2024 11:17 AM FIELD HOCKEY COACH Height 165.1 cm (5' 5 ) 02/24/2024 11:17 AM FIELD HOCKEY COACH Body Mass Index 34.45 02/24/2024 11:17 AM FIELD HOCKEY COACH Plan of Treatment Upcoming Encounters Date Type Department Care Team (Late st Contact Info) Description 07/12/2024 10:00 AM CDT Office Visit [facility] - Rheumatology [address] [place] [address], [place] [phone] Avery Bob MD [address] [place] [address] DIV [place] [address] 08/24/2024 10:45 AM CDT Office Visit [facility] - ARMY MANAGER [address], [address] [phone] Sterling Griffiths Che, MD [address] [facility] [address] [place] [address] Health Maintenance Due Date Last Done Comments COLOGUARD (AGES 45-75) - COL ON CA SCREENING 1971 COLON MONITORING 1971 COLONOSCOPY - COLON CA SCREENING 1971 CT COLONOGRAPHY - COLON CA SCREENING 1971 Colorectal Cancer Screening 1971 FIT - COLON CA SCREENING 1971 FLEX SIG - COLON CA SCREENING 1971 LIPID TESTING 1971 PAP SMEAR 1971 HIV SCREENING 1986 HEPATITIS C SCREENING 01/19/1989 DTAP/TDAP/TD VACCINES (1 - Tdap) 1990 HEPATITIS B VACCINE (1 of 3 - 19+ 3-dose series) 1990 PNEUMOCOCCAL VACCINE 50+ (1 of 1 - PCV) 2021 ZOSTER VACCINE (1 of 2) 2021 COVID-19 VACCINE (3 - 2023-2 5 season) 2023 10/04/2020, 09/06/2020 INFLUENZA VACCINE (#1) 2023 12/27/2020 SCREENING FOR DIABETES 02/10/2024 DEPRESSION SCREENING 03/24/2024 MAMMOGRAM 01/31/2025 01/31/2023, 01/21/2022, 10/31/2020 HIB VACCINE Aged Out No longer eligi ble based on patient's age to complete this topic HPV VACCINE Aged Out No longer eligi ble based on patient's age to complete this topic MENINGOCOCCAL (Group B) VACCINE Aged Out No longer eligible b ased on patient's age to complete this topic MENINGOCOCCAL VACCINE Aged Out No kiana cruz eligible based on patient's age to complete this topic PNEUMOCOCCAL VACCINE Aged Out No long er eligible based on patient's age to complete this topic Procedures Procedure Name Priority Date/Time Associated Diagnosis Comments UT INSERT NON-INDWELLING BLADDER Routine 02/10/2024 11:14 AM FIELD HOCKEY COACH Urge incontinence Frequency of micturition Nocturia CULTURE URINE COMPREHENSIVE Routine 02/10/2024 11:14 AM FIELD HOCKEY COACH Urge incontinence Frequency of micturition Nocturia UT FIT/INSERT INTRAVAG SUPPORT DEVICE Routine 02/10/2024 11:13 AM FIELD HOCKEY COACH Incomplete uterovaginal prolapse URINALYSIS AUTO - POINT OF CARE (AMB) [facility] Routine 02/10/2024 Urge incontinence Frequency of micturition Nocturia from Last 3 Months Results * UT INSERT NON-INDWELLING BLADDER (02/10/2024 11:14 AM FIELD HOCKEY COACH) Narrative Sterling Griffiths Che, MD - 02/10/2024 11:14 AM FIELD HOCKEY COACH Sterling Griffiths Che, MD ? 02/10/2024 11:22 [...] * CULTURE URINE COMPREHENSIVE (02/10/2024 11:14 AM FIELD HOCKEY COACH) Culture [facility] Comment: ??CULTURE, URINE, SPECIAL ?Micro Number: ?[id number] ??Test Status: ? Final ??Specimen Source: ?? Urine, catheter ??Specimen Quality: ??Adequate ??Result: ?No Growth Test Performed at: [facility] ??[id number] KAELA SOLER MD Microbiology URINE SPECIMEN COLLECTION, CATHETERIZED / Unknown 02/10/2024 11:14 AM FIELD HOCKEY COACH 02/11/2024 2:26 AM FIELD HOCKEY COACH Sterling Griffiths MD LAB - MICROBIOLOGY O RDERABLES Performing Organization Address City/[facility]/ZIP Co de Phone Number [address] [address] * UT FIT/INSERT INTRAVAG SUPPORT DEVICE (02/10/2024 11:13 AM FIELD HOCKEY COACH) Narrative Sterling Griffiths Che, MD - 02/10/2024 11:13 AM FIELD HOCKEY COACH Sterling Griffiths Che, MD ? 02/10/2024 11:22 AM #4 ring with floor Sterling Griffiths MD PROCEDURE/MINOR SURG ICAL ORDERABLES * URINALYSIS AUTO - POINT OF CARE (AMB) [facility] (02/10/2024) Glucose UA neg OTHER LAB Bilirubin UA POCT neg OTHER LAB Ketones UA POCT neg OTHER LAB Specific [place] UA 1.010 OTHER LAB Blood Urine POCT neg OTHER LAB pH UA 7.0 OTHER LAB Protein UA neg OTHER LAB Urobilinogen UA 0.2 OTHER LAB Nitrite UA neg OTHER LAB WBC UA neg OTHER LAB Urine URINE / Unknown 02/10/2024 Sterling Griffiths MD LAB - POINT OF CARE ORDERABLES OTHER LAB from Last 3 Months Care Teams Teacher Hearing Impaired Relationship Specialty Start Date End Date Jessica Hardin MD [address] [place] [address] PCP - General Family Medicine 02/10/24
--- OUTSIDE RECORDS SUMMARY | 2024-04-27 12:00 | XMS_ITS ---
Author Organization [facility] Address [facility] [place] [address] Care Team Providers Care Community Service Worker Name Role Phone Jessica Hardin MD Primary Care Provider [phone] Reshma Simon MD Unavailable [phone] Faith Acevedo MD Unavailable [phone] Lilian Lind NP Unavailable [phone] Katherine Wall MD Unavailable [phone] Active Problems Problem Noted Date Diagnosed Date Malignant neoplasm of upper- outer quadrant of left breast in female, estrogen receptor positive 04/16/2024 Mastitis 04/16/2024 Rash 04/16/2024 Personal history of radiation therapy 12/27/2020 History of breast cancer 10/31/2020 Malignant neoplasm of centra l portion of right breast in female, estrogen receptor positive 04/13/2020 Abnormal mammography 02/15/2020 Anxiety due to invasive procedure 02/15/2020 Current Oncology Plans Hydration Therapy Plan* Plan Start Date:04/16/2024 Plan Provider:Lilian Lind, BOBBY Linked Problems RashMastitisMalignant neopla sm of central portion of right breast in female, estrogen receptor positive (HCC)Malignant neoplasm of upper-outer quadrant of left breast in female, estrogen receptor positive (HCC) Treatment Medications No medications scheduled. Past Plans No past plan information found. Radiation Treatments * Plan Last Treated On Elapsed Days Fractions Treated Prescribed Fraction Dose Prescribed Total Dose R BREAST 05/26/2020 22 15 267 cGy 4,005 cGy Reference Point Last Treated On Elapsed Days Session Dose Total Dose [facility] 05/26/2020 22 0 cGy 4,005 cGy
--- OUTSIDE RECORDS SUMMARY | 2024-04-27 12:00 | XMS_ITS | Encounter Summary ---
Author Organization [facility] Facility Care Team Providers Care Roll Mill Operator Name Role Phone Reshma Simon MD Primary Care Provider + Jessica Hardin MD Primary Care Provider [phone] Reshma Simon MD Unavailable [phone] Jorge Marr MD PhD Unavailable [phone] Katherine Wall MD Unavailable [phone] Faith Acevedo MD Unavailable [phone] Ji Bean MD, [facility] Unavailable + [phone] Lilian Lind AUTO GARAGE MECHANIC Unavailable + [phone] Katherine Wall MD Unavailable +[phone] Encounter Details Date Type Department Care Team (Latest Contact Info) Description 07/04/2015 Orders Only [facility]INCON[facility] ProviderCisco MD [address] [place] [id number] Social History Tobacco Use Types Packs/Day Years Used Date Smoking Tobacco: Never Assessed Alcohol Use Standard Drinks/Week Comments Yes 0 (1 standard drink = 0.6 oz pur e alcohol) Comments Unknown Sex and Gender Information Value Date Recorded Sex Assigned at Not on file 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 us Historical Provider CV CARDIAC SERVICES PROCE DURES Final Result * CARDIOLOGY REPORT (08/09/2015 12:00 AM CDT) Anatomical Region Laterality Modality Other Narrative 08/09/2015 12:00 AM CDT Ordered by an unspecified provider. [facility] Provider CV CARDIAC SERVICES PROCE DURES Final Result * CARDIOLOGY REPORT (08/09/2015 12:00 AM CDT) Anatomical Region Laterality Modality Other Narrative 08/09/2015 12:00 AM CDT Ordered by an unspecified provider. [facility] Provider CV CARDIAC SERVICES PROCE DURES Final Result documented in this encounter Visit Diagnoses Not on filedocumented in this encounter Care Teams Roll Mill Operator Relationship Specialty Start Date End Date Reshma Simon MD [address] [place] [address] PCP - General 04/26/13 01/25/20 Jessica Hardin MD [address] [place] [address] PCP - General Family Medicine 01/26/20 Reshma Simon MD [address] [place] [address] Referring Physician Gynecology 01/26/20 Jorge Marr MD PhD [address] [facility] [address] [place] [address] Medical Oncologist Medical Oncology 05/03/20 04/04/21 Katherine Wall MD [address] [facility] [address] [place] [address] Radiation Oncologist Radiation Oncology 12/27/20 Faith Acevedo MD [address] [facility] [address] [place] [address] Surgeon Surgical Oncology 12/27/20 Russ Workman Jr., MD [address] [address] Medical Oncologist/Disability Aide Medical Oncology 04/05/21 04/08/22 Lilian Lind NP [address] [place] [address] [id number] Nurse Practitioner Medical Oncology 04/09/22 Katherine Wall MD [address] [place] [id number] Radiation Oncologist Radiation Oncology 11/19/23 documented as of this encounter
--- OUTSIDE RECORDS SUMMARY | 2024-04-27 12:00 | XMS_ITS | Encounter Summary ---
Author Organization [facility] Address [address] [place] [address] Phone Care Team Providers Care Drag Out Man Name Role Phone Jessica Hardin MD Primary Care Provider [phone] Reshma Simon MD Unavailable [phone] Faith Acevedo MD Unavailable +[phone] Lilian Lind NP Unavailable +- [phone] Katherine Wall MD Unavailable [phone] Encounter Details Date Type Department Care Team (Late st Contact Info) Description 04/27/2024 Telephone [facility] Oncology [facility] [facility] [address] [place] [address] Malina Omer, [facility] Social History Tobacco Use Types Packs/Day Years Used Date Smoking Tobacco: Never Smokeless Tobacco: Never Alcohol Use Standard Drinks/Week Comments Yes 1 (1 standard drink = 0.6 oz pur e alcohol) AUDIT-C Answer Date Recorded Q1: How often do you have a drink containing alcohol? Never 04/16/2024 Q2: How many drinks containi ng alcohol do you have on a typical day when you are drinking? Patient does not drink Q3: How often do you have si x or more drinks on one occasion? 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 Confirmed new appt time with pt. AM OPERATOR documented in this encounter Plan of Treatment Not on file documented as of this encounter Visit Diagnoses Not on filedocumented in this encounter Care Teams Drag Out Man Relationship Specialty Start Date End Date Jessica Hardin MD PCP - General Family Medicine 01/26/20 Reshma Simon MD [address] [facility] [address] [place] [address] Referring Physician Gynecology 01/26/20 aFith Acevedo MD [address] [address] Surgeon Surgical Oncology 12/27/20 Lilian Lind NP [address] [facility] [address] [place], [place] [id number] Nurse Practitioner Medical Oncology 04/09/22 Katherine Wall MD [address] [facility] [address] [place], [place] [id number] Radiation Oncologist Radiation Oncology 11/19/23 documented as of this encounter
--- OUTSIDE RECORDS SUMMARY | 2024-04-27 12:00 | XMS_ITS | Referral Summary ---
Author Organization [facility] Address [address] [facility] [place] [address] Care Team Providers Care Live In Housekeeper Name Role Phone Jessica Hardin MD Primary Care Provider [phone] Source Comments [facility],non-owned Affiliates and Associated Physician Practices is amultiple site organization consisting of ambulatory clinics and hospital sitesin [place], [place], [place] and [place]. This disclosure is being madepursuant to the Care Everywhere program and may not contain all information available regarding this patient. Last updated 17.[facility] Encounters Date Type Department Care Team Description 02/24/2024 Travel 02/24/2024 11:15 AM FIXED ROUTE OPERATOR Office Visit [facility] [address] [place] [address] Sterling Griffiths Che, MD Nocturia (Primary Dx); Incomplete uterovaginal prolapse; Urge incontinence; Frequency of micturition 02/10/2024 Travel 02/10/2024 11:00 AM FIXED ROUTE OPERATOR Office Visit [facility] - [facility] [address] [place] [address] Sterling Griffiths Che, MD Incomplete uterovaginal prolapse (Primary Dx); Urge incontinence; Frequency of micturition; Nocturia; Stress incontinence from Last 3 Months Allergies Active Allergy Reactions Criticality Noted Date [...] in: Follow up with PCP/specialist as scheduled Social History Tobacco Use Types Packs/Day Years [...] Comments Blood Pressure 156/88 02/24/2024 11:17 AM FIXED ROUTE OPERATOR Pulse - - Temperature 36.7 ??C (98.1 ??F) 02/10/2024 10:[address] Respiratory Rate - - Oxygen Saturation - - Inhaled Oxygen Concentration - - Weight 93.9 kg (207 lb) 02/24/2024 11:17 AM FIXED ROUTE OPERATOR Height 165.1 cm (5' 5 ) 02/24/2024 11:17 AM FIXED ROUTE OPERATOR Body Mass Index 34.45 02/24/2024 11:17 AM FIXED ROUTE OPERATOR Plan of Treatment Upcoming Encounters Date Type Department Care Team (Late st Contact Info) Description 07/12/2024 10:00 AM CDT Office Visit [facility] - Rheumatology [address] [place] [address], [place] [phone] Avery Bob MD [address] [place] [address] [address] [place] [address] 08/24/2024 10:45 AM CDT Office Visit [facility] - [facility] [address] [facility] [address] [place] [address] Sterling Griffiths Che, MD [address] [facility] [address] [place] [address] Procedures Procedure Name Priority Date/Time Associated Diagnosis Comments HI INSERT NON-INDWELLING BLADDER Routine 02/10/2024 11:14 AM FIXED ROUTE OPERATOR Urge incontinence Frequency of micturition Nocturia CULTURE URINE COMPREHENSIVE Routine 02/10/2024 11:14 AM FIXED ROUTE OPERATOR Urge incontinence Frequency of micturition Nocturia HI FIT/INSERT INTRAVAG SUPPORT DEVICE Routine 02/10/2024 11:13 AM FIXED ROUTE OPERATOR Incomplete uterovaginal prolapse URINALYSIS AUTO - POINT OF CARE (AMB) [facility] Routine 02/10/2024 Urge incontinence Frequency of micturition Nocturia from Last 3 Months Results * HI INSERT NON-INDWELLING BLADDER (02/10/2024 11:14 AM FIXED ROUTE OPERATOR) Narrative Sterling Griffiths Che, MD - 02/10/2024 11:14 AM FIXED ROUTE OPERATOR Sterling Griffiths Che, MD ? 02/10/2024 11:22 [...] * CULTURE URINE COMPREHENSIVE (02/10/2024 11:14 AM FIXED ROUTE OPERATOR) Culture [facility] Comment: ??CULTURE, URINE, SPECIAL ?Micro Number: ?[id number] ??Test Status: ? Final ??Specimen Source: ?? Urine, catheter ??Specimen Quality: ??Adequate ??Result: ?No Growth Test Performed at: [facility] ??[id number] KAELA SOLER MD Microbiology URINE SPECIMEN COLLECTION, CATHETERIZED / Unknown 02/10/2024 11:14 AM FIXED ROUTE OPERATOR 02/11/2024 2:26 AM FIXED ROUTE OPERATOR Sterling Griffiths MD LAB - MICROBIOLOGY O [facility] [address] [address] * HI FIT/INSERT INTRAVAG SUPPORT DEVICE (02/10/2024 11:13 AM FIXED ROUTE OPERATOR) Narrative Sterling Griffiths Che, MD - 02/10/2024 11:13 AM FIXED ROUTE OPERATOR Sterling Griffiths Che, MD ? 02/10/2024 11:22 AM #4 ring with floor Sterling Griffiths MD PROCEDURE/MINOR SURG ICAL ORDERABLES * URINALYSIS AUTO - POINT OF CARE (AMB) [facility] (02/10/2024) Glucose UA neg OTHER LAB Bilirubin UA POCT neg OTHER LAB Ketones UA POCT neg OTHER LAB Specific [place] UA 1.010 OTHER LAB Blood Urine POCT neg OTHER LAB pH UA 7.0 OTHER LAB Protein UA neg OTHER LAB Urobilinogen UA 0.2 OTHER LAB Nitrite UA neg OTHER LAB WBC UA neg OTHER LAB Urine URINE / Unknown 02/10/2024 Sterling Griffiths MD LAB - POINT OF CARE ORDERABLES OTHER LAB from Last 3 Months Care Teams Live In Housekeeper Relationship Specialty Start Date End Date Jessica Hardin MD [address] [place] [address] PCP - General Family Medicine 02/10/24
--- OUTSIDE RECORDS SUMMARY | 2024-04-27 12:00 | XMS_ITS | Clinical Summary ---
Author Organization [facility] Address [facility] [place] [address] Care Team Providers Care Navigating Officer Name Role Phone Jessica Hardin MD Primary Care Provider [phone] Reshma Simon MD Unavailable [phone] Faith Acevedo MD Unavailable [phone] Lilian Lind NP Unavailable [phone] Katherine Wall MD Unavailable [phone] Allergies Active Allergy Reactions Criticality Noted Date Comments Levonorgestrel-Ethinyl Estrad Cough Low 2021 Medications cyanocobalamin (Vitamin B-12) 1,000 mcg sublingual tablet Take 1 tablet (1,000 mcg total) by mouth every morning Active acetaminophen (TYLENOL) 500 mg tablet Take 1 tablet (500 mg total) by mouth as needed for pain Active losartan (COZAAR) 100 mg tablet Take 1 tablet (100 mg total) by mouth daily 1 Active acidophilus-pe ctin, citrus 100 million cell-10 mg capsule Take by mouth Active MULTIVITAMIN ORAL Take by mouth daily Active vitamin E acetate (VITAMIN E ORAL) Take by mouth daily Active VIT-IRON FUM-FOLIC AC ORAL Take by mouth daily Active chlorthalidone 25 mg tablet Take 0.5 tablets (12.5 mg total) by mouth daily 2 Active fluticasone propionate (FLONASE) 50 mcg/actuation nasal spray SHAKE LIQUID AND USE 1 SPRAY IN EACH NOSTRIL TWICE DAILY 2 Active loratadine (CLARITIN) 10 mg tablet Take 1 tablet (10 mg total) by mouth daily 2 Active amLODIPine (NORVASC) 5 mg tablet Take 1 tablet (5 mg total) by mouth daily 2 Active HYDROcodone-ac etaminophen (NORCO) 7.5-325 mg per tablet Take by mouth every 6 (six) hours as needed 2 Active buPROPion SR (WELLBUTRIN SR) 150 mg 12 hr tablet Take 1 tablet (150 mg total) by mouth 2 (two) times a day Active celecoxib (CeleBREX) 200 mg capsule Take 1 capsule (200 mg total) by mouth 2 (two) times a day 3 Active mirtazapine (REMERON) 7.5 mg tablet 4 Active oxyBUTYnin (DITROPAN) 5 mg tablet Take 1 tablet (5 mg total) by mouth daily 4 Active tamoxifen (NOLVADEX) 20 mg tabletIndicati ons:Malignant neoplasm of central portion of right breast in female, estrogen receptor positive (HCC),Malignan t neoplasm of upper-outer quadrant of left breast in female, estrogen receptor positive (HCC),long-term (current) use of selective estrogen receptor modulators (serms) Take 1 tablet (20 mg total) by mouth daily 90 tablet 3 4 Active metoprolol XL (TOPROL-XL) 25 mg extended release tablet Take 1 tablet (25 mg total) by mouth daily Active pregabalin (LYRICA) 25 mg capsule Take 1 capsule (25 mg total) by mouth 2 (two) times a day Active baclofen (LIORESAL) 10 mg tablet Take 1 tablet (10 mg total) by mouth 3 (three) times a day Active omega-3 fatty acids-fish oil 300-1,000 mg capsule Take 2 capsules (2 g total) by mouth daily Active amoxicillin-cl avulanate (AUGMENTIN) 875-125 mg per tabletIndicati ons:Skin/Soft Tissue Infection Take 1 tablet (875 mg of amoxicillin total) by mouth 2 (two) times a day 20 tablet 5 Active famotidine (PEPCID) 20 mg tablet Take 1 tablet (20 mg total) by mouth 2 (two) times a day 20 tablet 5 026 Active ergocalciferol (VITAMIN D) 50,000 unit capsuleIndicat ions:Vitamin D Deficiency Take 1 capsule (50,000 Units total) by mouth once a week 12 capsule 3 5 Active ELDERBERRY FRUIT AND FLOWER ORAL Take by mouth 025 Discontinu ed(Therapy completed) ergocalciferol (VITAMIN D) 50,000 unit capsule Take 1 capsule (50,000 Units total) by mouth once a week 2 025 Discontinu ed(Reorder ) gabapentin (NEURONTIN) 400 mg capsule TAKE 1 CAPSULE BY MOUTH EVERY MORNING AND 2 CAPSULES BY MOUTH AT BEDTIME 4 025 Discontinu ed(Therapy completed) methylPREDNISo lone (MEDROL DOSEPACK) 4 mg Dosepack Take as directed on package 1 packet 5 025 Active Problems Problem Noted Date Diagnosed Date Malignant neoplasm of upper- outer quadrant of left breast in female, estrogen receptor positive 04/16/2024 Mastitis 04/16/2024 Rash 04/16/2024 Personal history of radiation therapy 12/27/2020 History of breast cancer 10/31/2020 Malignant neoplasm of centra l portion of right breast in female, estrogen receptor positive 04/13/2020 Abnormal mammography 02/15/2020 Anxiety due to invasive procedure 02/15/2020 Encounters Date Type Department Care Team Description 04/27/2024 Telephone [facility] On[facility] [address] [place] [address] [address] [place] [address] Malina Omer CMA 04/20/2024 Telephone [facility] Oncology [address] [place] [address] [address] [place] [address] Peggy West, NARGIS 04/19/2024 Orders Only [facility] [address] [place] [address] [address] [place] [address] Lilian Lind, BOBBY 04/19/2024 Telephone [facility] On[facility] [address] [place] [address] [address] [place] [id number] Lilian Lind NP 04/16/2024 4:00 PM SUPERVISOR FUNCTIONAL TESTING Infusion [facility] [address] [place] [phone] Rash (Primary Dx); Malignant neoplasm of upper-outer quadrant of left breast in female, estrogen receptor positive (HCC); Mastitis; Malignant neoplasm of central portion of right breast in female, estrogen receptor positive (HCC) 04/16/2024 3:30 PM SUPERVISOR FUNCTIONAL TESTING Office Visit [facility] On[facility] [address] [place] [phone] Lilian Lind, BOBBY Malignant neoplasm of upper-outer quadrant of left breast in female, estrogen receptor positive (HCC) (Primary Dx); Malignant neoplasm of central portion of right breast in female, estrogen receptor positive (HCC); 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 (current) use of selective estrogen receptor modulators (serms); Vitamin D deficiency; long-term (current) use of aromatase inhibitors; Annmarie infection of flexural skin; Mastitis of right breast unrelated to of ; Allergic contact dermatitis due to dyes 04/16/2024 3:00 PM SUPERVISOR FUNCTIONAL TESTING Lab [address] [address] Malignant neoplasm of central portion of right breast in female, estrogen receptor positive (HCC); Malignant neoplasm of upper-outer quadrant of left breast in female, estrogen receptor positive (HCC); 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 (current) use of selective estrogen receptor modulators (serms); Vitamin D deficiency 03/25/2024 9:49 AM SUPERVISOR FUNCTIONAL TESTING - 03/25/2024 11:59 PM SUPERVISOR FUNCTIONAL TESTING Hospital Encounter [facility] [address] [place] [address] Encounter for screening mammogram for breast cancer Discharge Disposition: Discharge to home or self care from Last 3 Months Immunizations Name Administration Dates Next Due Influenza, Quadrivalent, Spl it, Preservative Free, Intramuscular 12/27/2020 Surgical History Surgery Date Site/Laterality Comments EYE SURGERY 03/24/1976 - 03/23/1977 Right OVARIAN CYST SURGERY 03/24/1998 - 03/23/1999 THUMB SURGERY 03/24/2011 - 03/23/2012 Left BREAST BIOPSY 02/28/2020 Right intraductal papilloma OTHER SURGICAL HISTORY 03/27/2020 Right Mag seed BACK SURGERY 03/24/2021 - 04/23/2021 Medical History Medical History Date Comments Hypertension Hypertension Depression Breast cancer (HCC) Family History Medical History Relation Name Comments Heart disease Father Prostate cancer Maternal Grandfather Breast cancer Maternal Grandmother Cancer , breast; Heart failure Mother Prostate cancer Mother's Brother Breast cancer Sister Relation Name Status Comments Father Maternal Grandfather Maternal Grandmother Mother Mother's Brother Sister Social History Tobacco Use Types Packs/Day [...] on file Legal Sex Female 12:44 AM SUPERVISOR FUNCTIONAL TESTING Gender Identity Not on file Sexual Orientation Not on file Obstetrics History Para Term AB IAB SAB Ectopic Multiple Livin g Live Births 3 2 2 Date Outcome GA Total Labor Labor/2nd/3rd Weight Sex Type Anes PTL Monika A1 A5 Name Clin Term Term Last Filed Vital Signs Vital Sign Reading Time Taken Comments Blood Pressure 138/83 04/16/2024 3:10 PM SUPERVISOR FUNCTIONAL TESTING Pulse 88 04/16/2024 3:10 PM SUPERVISOR FUNCTIONAL TESTING Temperature 36.1 ??C (96.9 ??F) 04/16/2024 3:10 PM CS T Respiratory Rate 20 04/16/2024 3:10 PM SUPERVISOR FUNCTIONAL TESTING Oxygen Saturation 100% 04/16/2024 3:10 PM SUPERVISOR FUNCTIONAL TESTING Inhaled Oxygen Concentration - - Weight 97.1 kg (214 lb) 04/16/2024 3:10 PM SUPERVISOR FUNCTIONAL TESTING Height 160 cm (5' 3 ) 04/16/2024 3:10 PM SUPERVISOR FUNCTIONAL TESTING Body Mass Index 37.91 04/16/2024 3:10 PM SUPERVISOR FUNCTIONAL TESTING Plan of Treatment Health Maintenance Due Date Last Done Comments Cervical Cancer Screening 1971 Colon Cancer Screening-Colonoscopy 1971 Depression Screening 1971 Hepatitis C Screening 1971 Pneumococcal vaccine <65 (1 of 2 - PCV) 1977 DTaP/Tdap/Td Vaccine (1 - Tdap) 1982 Hepatitis B Screening 1989 Regular Well Visit/Exam 18-64 1989 Zoster Vaccine (1 of 2) 1990 Covid-19 Vaccine (3 - Modern a risk series) 11/01/2020 10/04/2020, 09/06/2020 Influenza Vaccine (#1) 2023 12/27/2020 Breast Cancer Screening-Mammogram 03/25/2025 03/25/2024, 01/31/2023, 01/31/2023, Additional history exists Procedures Procedure Name Priority Date/Time Associated Diagnosis Comments EGFR Routine 04/16/2024 3:03 PM SUPERVISOR FUNCTIONAL TESTING Malignant neoplasm of central portion of right breast in female, estrogen receptor positive (HCC) Malignant neoplasm of upper-outer quadrant of left breast in female, estrogen receptor positive (HCC) long-term (current) use of selective estrogen receptor modulators (serms) DIFFERENTIAL AUTO Routine 04/16/2024 3:0 3 PM SUPERVISOR FUNCTIONAL TESTING Malignant neoplasm of central portion of right breast in female, estrogen receptor positive (HCC) Malignant neoplasm of upper-outer quadrant of left breast in female, estrogen receptor positive (HCC) long-term (current) use of selective estrogen receptor modulators (serms) CBC WITH AUTO DIFFERENTIAL Routine 04/16/2024 3:03 PM SUPERVISOR FUNCTIONAL TESTING Malignant neoplasm of central portion of right breast in female, estrogen receptor positive (HCC) Malignant neoplasm of upper-outer quadrant of left breast in female, estrogen receptor positive (HCC) 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 (current) use of selective estrogen receptor modulators (serms) COMPREHENSIVE METABOLIC PANEL Routine 04/16/2024 3:03 PM SUPERVISOR FUNCTIONAL TESTING Malignant neoplasm of central portion of right breast in female, estrogen receptor positive (HCC) Malignant neoplasm of upper-outer quadrant of left breast in female, estrogen receptor positive (HCC) 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 (current) use of selective estrogen receptor modulators (serms) VITAMIN D 25 HYDROXY Routine 04/16/2024 3:03 PM SUPERVISOR FUNCTIONAL TESTING Malignant neoplasm of central portion of right breast in female, estrogen receptor positive (HCC) Malignant neoplasm of upper-outer quadrant of left breast in female, estrogen receptor positive (HCC) 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 (current) use of selective estrogen receptor modulators (serms) Vitamin D deficiency SCREENING MAMMOGRAM BILATERAL W KEITH Schedule Routine, Read Routine (OP Routine) 03/25/2024 10:05 AM SUPERVISOR FUNCTIONAL TESTING Encounter for screening mammogram for breast cancer from Last 3 Months Results * eGFR (04/16/2024 3:03 PM SUPERVISOR FUNCTIONAL TESTING) eGFR 76 >=60 mL/min/1. 73 m2 Comment: Interpretive Data Reference Interval Normal ?>/= 90 mL/min/1.73m2 Mildly decreased* ? 60 - 89 mL/min/1.73m2 Mildly to moderately decreased ?45 - 59 mL/min/1.73m2 Moderately to severely decreased ??30 - 44 mL/min/1.73m2 Severely decreased ?15 - 29 mL/min/1.73m2 Kidney Failure ?< 15 ??mL/min/1.73m2 *Relative to young adult level Estimated glomerular filtration rate is determined by the 2020 CKD-EPI equation recommended by the National Kidney Foundation (A Unifying Approach to GFR Estimation: Recommendations of the NKF-ASK Task Force on Reassessing the Inclusion of Race in Diagnosing Kidney Disease, JASN 2020). The CKD-EPI equation should not be used for patients with unstable renal function and has not been validated in children and those over 70. Current interpretive data was last reviewed 2021. Testing performed by: [facility], [address] [place]., [address] Blood 04/16/2024 3:03 PM SUPERVISOR FUNCTIONAL TESTING 04/16/2024 3:06 PM SUPERVISOR FUNCTIONAL TESTING Lilian Lind NP LAB BLOOD ORDERABLES Final Result [facility] [address] [facility] Department [place] [address] * Differential, auto (04/16/2024 3:03 PM SUPERVISOR FUNCTIONAL TESTING) Neutrophil abs 2.4 1.5 - 6.5 K/cumm Comment:Testing performed by : [address] [address] Imm gran abs 0.0 0.0 - 0.1 K/cumm LETTY Comment:Testing performed by : [address] [address] Lymphocyte abs 2.2 0.8 - 3.3 K/cumm LETTY Comment:Testing performed by : [address] [address] Monocyte abs 0.6 0.2 - 0.8 K/cumm LETTY Comment:Testing performed by : [address] [address] Eosinophil abs 0.5 0.0 - 0.5 K/cumm LETTY Comment:Testing performed by : [address] [address] Basophil abs 0.0 0.0 - 0.1 K/cumm LETTY Comment:Testing performed by : [address] [address] Neutrophil pct 42.1 % LETTY Comment: Interpretive Data Percent cell count reference ranges are not reported, since discordance with absolute values may lead to misinterpretation of CBC data. Current Interpretive Data was last revised on 2017. Testing performed by: [address] [address] Imm gran pct 0.3 % LETTY Comment: Interpretive Data Percent cell count reference ranges are not reported, since discordance with absolute values may lead to misinterpretation of CBC data. Current Interpretive Data was last revised on 2017. Testing performed by: [address] [address] Lymphocyte pct 37.8 % [facility] Comment: Interpretive Data Percent cell count reference ranges are not reported, since discordance with absolute values may lead to misinterpretation of CBC data. Current Interpretive Data was last revised on 2017. Testing performed by: [address] [address] Monocyte pct 10.0 % [facility] Comment: Interpretive Data Percent cell count reference ranges are not reported, since discordance with absolute values may lead to misinterpretation of CBC data. Current Interpretive Data was last revised on 2017. Testing performed by: [address] [address] Eosinophil pct 9.3 % LETTY Comment: Interpretive Data Percent cell count reference ranges are not reported, since discordance with absolute values may lead to misinterpretation of CBC data. Current Interpretive Data was last revised on 2017. Testing performed by: [address] [address] Basophil pct 0.5 % LETTY Comment: Interpretive Data Percent cell count reference ranges are not reported, since discordance with absolute values may lead to misinterpretation of CBC data. Current Interpretive Data was last revised on 2017. Testing performed by: [address] [address] Blood 04/16/2024 3:03 PM SUPERVISOR FUNCTIONAL TESTING 04/16/2024 3:06 PM SUPERVISOR FUNCTIONAL TESTING us Lilian Lind NP LAB BLOOD ORDERABLES Final Result LETTY [facility] [address] [facility] Department [place] [address] * CBC with auto differential (04/16/2024 3:03 PM SUPERVISOR FUNCTIONAL TESTING) WBC 5.8 3.8 - 9.9 K/cumm Comment:Testing performed by : [address] [address] Hgb 12.4 11.9 - 15.5 g/dL LETTY Comment:Testing performed by : [address] [address] Hct 37.5 35.6 - 45.5 % LETTY Comment:Testing performed by : [address] [address] Plt 211 150 - 400 K/cumm LETTY Comment:Testing performed by : [address] [address] MPV 10.8 9.1 - 12.3 fL LETTY Comment:Testing performed by : [address], [address] RBC 4.22 3.90 - 5.20 M/cumm LETTY Comment:Testing performed by : [address] [address] MCV 88.9 81.3 - 96.4 fL LETTY Comment:Testing performed by : [address] [address] MCH 29.4 27.1 - 33.3 pg LETTY Comment:Testing performed by : [address] [address] MCHC 33.1 32.3 - 35.7 g/dL LETTY Comment:Testing performed by : [address], [address] RDW CV 13.3 11.1 - 14.9 % LETTY Comment:Testing performed by : [address] [address] RDW SD 43.9 35.7 - 48.1 fL LETTY Comment:Testing performed by : [address] [address] NRBC abs 0.00 0.00 - 0.01 K/cumm LETTY Comment:Testing performed by : [address] [address] Blood 04/16/2024 3:03 PM SUPERVISOR FUNCTIONAL TESTING 04/16/2024 3:06 PM SUPERVISOR FUNCTIONAL TESTING Lilian Lind ACID RECOVERY OPERATOR LAB BLOOD ORDERABLES Final Result LETTY [address] [address] * (ABNORMAL) Vitamin D 25 hydroxy (04/16/2024 3:03 PM SUPERVISOR FUNCTIONAL TESTING) Pathologist [facility] Vitamin D 25-OH 20.0(L) 30.0 - 80.0 ng/mL Blood 04/16/2024 3:03 PM SUPERVISOR FUNCTIONAL TESTING 04/16/2024 4:55 PM SUPERVISOR FUNCTIONAL TESTING Lilian Lind NP LAB BLOOD ORDERABLES Final Result Performing Organization Address [facility] Co de Phone Number LETTY [address] [address] * Comprehensive metabolic panel (04/16/2024 3:03 PM SUPERVISOR FUNCTIONAL TESTING) [facility] Sodium 143 135 - 145 mmol/L Comment:Testing performed by : [address] [address] Potassium, pl 4.2 3.3 - 4.9 mmol/L LETTY Comment:Testing performed by : [address] [address] Chloride 106 97 - 110 mmol/L LETTY Comment:Testing performed by : [address] [address] CO2 27 22 - 32 mmol/L LETTY Comment:Testing performed by : [address] [address] Anion gap 10 2 - 15 mmol/L LETTY Comment:Testing performed by : [address] [address] BUN 14 6 - 25 mg/dL LETTY Comment:Testing performed by : [address] [address] Creatinine 0.90 0.60 - 1.10 mg/dL LETTY Comment:Testing performed by : [address] [address] Glucose 96 70 - 199 mg/dL LETTY Comment: Interpretive Data Fasting glucose >/= 126 mg/dl is diagnostic for diabetes. ?? Fasting is defined as no caloric intake for at least 8 hours. Fasting glucose between 100 mg/dl to 125 mg/dl is diagnostic of prediabetes. In a patient with classic symptoms of hyperglycemia or hyperglycemic crisis, a random glucose >/= 200 mg/dl is diagnostic for diabetes. In the absence of unequivocal hyperglycemia, results should be confirmed by repeat testing. The classification and Diagnosis of Diabetes Diabetes Care 202; 46: S19-S40. Current interpretive data was last revised 2022. Testing performed by: [address] [address] Calcium 9.2 8.5 - 10.3 mg/dL LETTY Comment:Testing performed by : [address] [address] Bilirubin, total <0.2 0.1 - 1.2 mg/dL LETTY Comment:Testing performed by : [address] [address] Protein, pl 6.8 6.5 - 8.5 g/dL LETTY Comment:Testing performed by : [address] [address] Albumin 4.2 3.5 - 5.0 g/dL LETTY Comment:Testing performed by : [address] [address] Alk phos 49 40 - 130 Units/L LETTY Comment:Testing performed by : [address] [address] ALT 13 7 - 45 Units/L LETTY Comment:Testing performed by : [address] [address] AST 17 10 - 45 Units/L LETTY Comment:Testing performed by : [address] [address] Blood 04/16/2024 3:03 PM SUPERVISOR FUNCTIONAL TESTING 04/16/2024 3:06 PM SUPERVISOR FUNCTIONAL TESTING us Lilian Lind NP LAB BLOOD ORDERABLES Final Result LETTY [address] [facility] Department [place] [address] * Screening Mammogram Bilateral W Keith (03/25/2024 10:05 AM SUPERVISOR FUNCTIONAL TESTING) Anatomical Region Laterality Modality Breast Bilateral Mammography Impressions 03/25/2024 10:24 AM SUPERVISOR FUNCTIONAL TESTING BI-RADS?? ATLAS category (overall): 2 - Benign There is no mammographic evidence of malignancy. A 1 year screening mammogram is recommended. The patient has been or will be contacted. We recommend annual screening mammography for women at average risk of breast cancer beginning at age 40, based on guidelines of the [employer] (ACR Practice Parameter for the Performance of Screening and Diagnostic Mammography) and [employer]. For women with and elevated risk of breast cancer, please refer to the ACR Practice Parameter for specific screening recommendations. The patient will be entered into a reminder system with a target due date of 1 year for her next screening exam. Narrative 03/25/2024 10:24 AM SUPERVISOR FUNCTIONAL TESTING Screening Mammogram Bilateral W Keith: 03/25/24 The study was acquired using full field digital technology and interpreted from soft copy. 2D digital mammographic views, as well as 3D digital tomosynthesis were performed in the CC and MLO projections. This study was resulted using Computer-Aided Detection (CAD). CLINICAL: ??Encounter for screening mammogram for breast cancer. ??Medical history includes breast cancer. ??History of breast cancer in Maternal Grandmother, Sister. COMPARISONS: 01/31/2023 Diagnostic Mammogram Bilateral W Keith 01/21/2022 Diagnostic Mammogram Bilateral W Keith 10/31/2020 Diagnostic Mammogram Bilateral W Keith 03/27/2020 Radiologic Examination of Surgical Specimen 03/20/2020 Mammo Guided Magseed Localization Right 02/28/2020 US Guided Breast Biopsy Right BREAST TISSUE: There are scattered areas of fibroglandular density. FINDINGS: There are stable postoperative changes of right breast conservation therapy. There is no new suspicious finding in either breast on mammogram. us Lilian Lind ACID RECOVERY OPERATOR IMG MAMMO PROCEDURES Final Result from Last 3 Months Insurance [facility] OTHER Address[facility] [address] [place] [address] [facility] CHOICE [facility] HMO/PPO Address: [facility] [address] [place] [address] [employer]PA [facility] Care Teams Navigating Officer Relationship Specialty Start Date End Date Jessica Hardin MD PCP - General Family Medicine 01/26/20 Reshma Simon MD [address] [id number] Referring Physician Gynecology 01/26/20 Faith Acevedo MD [address] [address] Surgeon Surgical Oncology 12/27/20 Lilian Lind NP [address] [place] [address] [id number] Nurse Practitioner Medical Oncology 04/09/22 Katherine Wall MD [address] [place] [address] [address] [place], [place] [address] Radiation Oncologist Radiation Oncology 11/19/23
--- OUTSIDE RECORDS SUMMARY | 2024-04-27 12:00 | XMS_ITS | Referral Summary ---
Author Organization [facility] Address [address] [place] [address] Care Team Providers Care Office Worker Name Role Phone Jessica Hardin MD Primary Care Provider [phone] Reshma Simon MD Unavailable [phone] Faith Acevedo MD Unavailable [phone] Lilian Lind BRANCH LENDING OFFICER Unavailable + [phone] Katherine Wall MD Unavailable [phone] Encounters Date Type Department Care Team Description 04/27/2024 Telephone [facility] Physicians [facility] Oncology [facility] [facility] [address] [place] [address] Malina Omer, EZE 04/20/2024 Telephone [facility] Oncology [address] [place] [address] Peggy West, NARGIS 04/19/2024 Orders Only [facility] Oncology [address] [place] [address] Lilian Lind, BOBBY 04/19/2024 Telephone [facility] Oncology [address] [facility] [address] [place] [address] Lilian Lind, BOBBY 04/16/2024 4:00 PM [facility] [address] [place] [id number] Rash (Primary Dx); Malignant neoplasm of upper-outer quadrant of left breast in female, estrogen receptor positive (HCC); Mastitis; Malignant neoplasm of central portion of right breast in female, estrogen receptor positive (HCC) 04/16/2024 3:00 PM WOODWORKING MACHINE FEEDER [facility] [address] [place] [address] Malignant neoplasm of central portion of right breast in female, estrogen receptor positive (HCC); Malignant neoplasm of upper-outer quadrant of left breast in female, estrogen receptor positive (HCC); MCFP (current) use of selective estrogen receptor modulators (serms); Vitamin D deficiency 04/16/2024 3:30 PM WOODWORKING MACHINE FEEDER Office Visit [facility] Physicians [facility] Oncology [address] [facility] [facility] [address] [place] [address] Lilian Lind, BOBBY Malignant neoplasm of upper-outer quadrant of left breast in female, estrogen receptor positive (HCC) (Primary Dx); Malignant neoplasm of central portion of right breast in female, estrogen receptor positive (HCC); 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); Vitamin D deficiency; MCFP (current) use of aromatase inhibitors; Annmarie infection of flexural skin; Mastitis of right breast unrelated to of ; Allergic contact dermatitis due to dyes 03/25/2024 9:49 AM WOODWORKING MACHINE FEEDER - 03/25/2024 11:59 PM WOODWORKING MACHINE FEEDER Hospital Encounter [facility] [address] [facility] [address] [facility] [facility] [address] [place] [address] Encounter for screening mammogram for breast cancer Discharge Disposition: Discharge to home or self care from Last 3 Months Allergies Active Allergy [...] left breast in female, estrogen receptor positive (HCC),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 estrogen receptor modulators [...] 02/15/2020 Anxiety due to invasive procedure 02/15/2020 Immunizations Name Administration Dates Next Due Influenza, Quadrivalent, Spl it, Preservative Free, Intramuscular 12/27/2020 Social History Tobacco Use Types Packs/Day Years [...] on file Legal Sex Female 12:44 AM WOODWORKING MACHINE FEEDER Gender Identity Not on file Sexual Orientation Not on file Last Filed Vital Signs Vital Sign Reading Time Taken Comments Blood Pressure 138/83 04/16/2024 3:10 PM WOODWORKING MACHINE FEEDER Pulse 88 04/16/2024 3:10 PM WOODWORKING MACHINE FEEDER Temperature 36.1 ??C (96.9 ??F) 04/16/2024 3:10 PM CS T Respiratory Rate 20 04/16/2024 3:10 PM WOODWORKING MACHINE FEEDER Oxygen Saturation 100% 04/16/2024 3:10 PM WOODWORKING MACHINE FEEDER Inhaled Oxygen Concentration - - Weight 97.1 kg (214 lb) 04/16/2024 3:10 PM WOODWORKING MACHINE FEEDER Height 160 cm (5' 3 ) 04/16/2024 3:10 PM WOODWORKING MACHINE FEEDER Body Mass Index 37.91 04/16/2024 3:10 PM WOODWORKING MACHINE FEEDER Plan of Treatment Not on file Procedures Procedure Name Priority Date/Time Associated Diagnosis Comments EGFR Routine 04/16/2024 3:03 PM WOODWORKING MACHINE FEEDER Malignant neoplasm of central portion of right breast in female, estrogen receptor positive (HCC) Malignant neoplasm of upper-outer quadrant of left breast in female, estrogen receptor positive (HCC) 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) DIFFERENTIAL AUTO Routine 04/16/2024 3:0 3 PM WOODWORKING MACHINE FEEDER Malignant neoplasm of central portion of right breast in female, estrogen receptor positive (HCC) Malignant neoplasm of upper-outer quadrant of left breast in female, estrogen receptor positive (HCC) 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) CBC WITH AUTO DIFFERENTIAL Routine 04/16/2024 3:03 PM WOODWORKING MACHINE FEEDER Malignant neoplasm of central portion of right breast in female, estrogen receptor positive (HCC) Malignant neoplasm of upper-outer quadrant of left breast in female, estrogen receptor positive (HCC) 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) COMPREHENSIVE METABOLIC PANEL Routine 04/16/2024 3:03 PM WOODWORKING MACHINE FEEDER Malignant neoplasm of central portion of right breast in female, estrogen receptor positive (HCC) Malignant neoplasm of upper-outer quadrant of left breast in female, estrogen receptor positive (HCC) 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) VITAMIN D 25 HYDROXY Routine 04/16/2024 3:03 PM WOODWORKING MACHINE FEEDER Malignant neoplasm of central portion of right breast in female, estrogen receptor positive (HCC) Malignant neoplasm of upper-outer quadrant of left breast in female, estrogen receptor positive (HCC) 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 73 m2 Comment: [...] of Race in Diagnosing Kidney Disease, JASN 202). The CKD-EPI equation should not be used for patients with unstable renal function and has not been validated in children and those over 70. Current interpretive data was last reviewed 2021. Testing performed by: [address] [address] Blood 04/16/2024 3:03 PM WOODWORKING MACHINE FEEDER 04/16/2024 3:06 PM WOODWORKING MACHINE FEEDER us Lilian Lind NP LAB BLOOD ORDERABLES Final Result LETTY DRISCOLL [facility] Department [place] [address] * Differential, auto (04/16/2024 3:03 PM WOODWORKING MACHINE FEEDER) Neutrophil abs 2.4 1.5 - 6.5 K/cumm Comment:Testing performed by : [address] [address] Imm gran abs 0.0 0.0 - 0.1 K/cumm LETTY Comment:Testing performed by : [address] [address] Lymphocyte abs 2.2 0.8 - 3.3 K/cumm LETTY Comment:Testing performed by : [address] [address] Monocyte abs 0.6 0.2 - 0.8 K/cumm LETTY Comment:Testing performed by : [address] [address] Eosinophil abs 0.5 0.0 - 0.5 K/cumm LETTY Comment:Testing performed by : [address] [address] Basophil abs 0.0 0.0 - 0.1 K/cumm LETTY Comment:Testing performed by : [address] [address] Neutrophil pct 42.1 % [facility] Comment: Interpretive Data Percent cell count reference ranges are not reported, since discordance with absolute values may lead to misinterpretation of CBC data. Current Interpretive Data was last revised on 2017. Testing performed by: [address] [address] Imm gran pct 0.3 % [facility] Comment: Interpretive Data Percent cell count reference ranges are not reported, since discordance with absolute values may lead to misinterpretation of CBC data. Current Interpretive Data was last revised on 2017. Testing performed by: [address] [address] Lymphocyte pct 37.8 % [facility] Comment: Interpretive Data Percent cell count reference ranges are not reported, since discordance with absolute values may lead to misinterpretation of CBC data. Current Interpretive Data was last revised on 2017. Testing performed by: [address] [address] Monocyte pct 10.0 % [facility] Comment: Interpretive Data Percent cell count reference ranges are not reported, since discordance with absolute values may lead to misinterpretation of CBC data. Current Interpretive Data was last revised on 2017. Testing performed by: [address] [address] Eosinophil pct 9.3 % [facility] Comment: Interpretive Data Percent cell count reference ranges are not reported, since discordance with absolute values may lead to misinterpretation of CBC data. Current Interpretive Data was last revised on 2017. Testing performed by: [address] [address] Basophil pct 0.5 % [facility] Comment: Interpretive Data Percent cell count reference ranges are not reported, since discordance with absolute values may lead to misinterpretation of CBC data. Current Interpretive Data was last revised on 2017. Testing performed by: [address] [address] Blood 04/16/2024 3:03 PM WOODWORKING MACHINE FEEDER 04/16/2024 3:06 PM WOODWORKING MACHINE FEEDER Lilian Lind BRANCH LENDING OFFICER LAB BLOOD ORDERABLES Final Result [facility] [address] [facility] Department [place] [address] * CBC with auto differential (04/16/2024 3:03 PM WOODWORKING MACHINE FEEDER) WBC 5.8 3.8 - 9.9 K/cumm Comment:Testing performed by : [address] [address] Hgb 12.4 11.9 - 15.5 g/dL LETTY Comment:Testing performed by : [address] [address] Hct 37.5 35.6 - 45.5 % LETTY Comment:Testing performed by : [address] [address] Plt 211 150 - 400 K/cumm LETTY Comment:Testing performed by : [address] [address] MPV 10.8 9.1 - 12.3 fL LETTY Comment:Testing performed by : [address] [address] RBC 4.22 3.90 - 5.20 M/cumm LETTY Comment:Testing performed by : [address] [address] MCV 88.9 81.3 - 96.4 fL LETTY Comment:Testing performed by : [address] [address] MCH 29.4 27.1 - 33.3 pg LETTY Comment:Testing performed by : [address] [address] MCHC 33.1 32.3 - 35.7 g/dL LETTY Comment:Testing performed by : [address] [address] RDW CV 13.3 11.1 - 14.9 % LETTY Comment:Testing performed by : [address] [address] RDW SD 43.9 35.7 - 48.1 fL LETTY Comment:Testing performed by : [address] [address] NRBC abs 0.00 0.00 - 0.01 K/cumm LETTY DRISCOLL Comment:Testing performed by : [address] [address] Blood 04/16/2024 3:03 PM WOODWORKING MACHINE FEEDER 04/16/2024 3:06 PM WOODWORKING MACHINE FEEDER Lilian Lind BRANCH LENDING OFFICER LAB BLOOD ORDERABLES Final Result Performing Organization Address City/[facility]/ZIP Co de Phone Number [address] [place] [address] * (ABNORMAL) Vitamin D 25 hydroxy (04/16/2024 3:03 PM WOODWORKING MACHINE FEEDER) [facility] Vitamin D 25-OH 20.0(L) 30.0 - 80.0 ng/mL Blood 04/16/2024 3:03 PM WOODWORKING MACHINE FEEDER 04/16/2024 4:55 PM WOODWORKING MACHINE FEEDER Lilian Lind NP LAB BLOOD ORDERABLES Final Result Performing Organization Address [facility] Co de Phone Number [address] [place] [address] * Comprehensive metabolic panel (04/16/2024 3:03 PM WOODWORKING MACHINE FEEDER) [facility] Sodium 143 135 - 145 mmol/L Comment:Testing performed by : [address] [address] Potassium, pl 4.2 3.3 - 4.9 mmol/L LETTY DRISCOLL Comment:Testing performed by : [address] [address] Chloride 106 97 - 110 mmol/L LETTY DRISCOLL Comment:Testing performed by : [address] [address] CO2 27 22 - 32 mmol/L LETTY DRISCOLL Comment:Testing performed by : [address] [address] Anion gap 10 2 - 15 mmol/L [facility] Comment:Testing performed by : [address] [address] BUN 14 6 - 25 mg/dL [facility] Comment:Testing performed by : [address] [address] Creatinine 0.90 0.60 - 1.10 mg/dL [facility] Comment:Testing performed by : [address] [address] Glucose 96 70 - 199 mg/dL [facility] Comment: Interpretive Data Fasting glucose >/= 126 [...] classification and Diagnosis of Diabetes Diabetes Care 2021; 46: S19-S40. Current interpretive data was last revised 2022. Testing performed by: [address] [address] Calcium 9.2 8.5 - 10.3 mg/dL [facility] Comment:Testing performed by : [address] [address] Bilirubin, total <0.2 0.1 - 1.2 mg/dL [facility] Comment:Testing performed by : [address] [address] Protein, pl 6.8 6.5 - 8.5 g/dL [facility] Comment:Testing performed by : [address] [address] Albumin 4.2 3.5 - 5.0 g/dL [facility] Comment:Testing performed by : [address] [address] Alk phos 49 40 - 130 Units/L [facility] Comment:Testing performed by : [address] [address] ALT 13 7 - 45 Units/L [facility] Comment:Testing performed by : [facility], [address] [place] [address]., [address] AST 17 10 - 45 Units/L LETTY Comment:Testing performed by : [facility], [address] [place] [address]., [address] Blood 04/16/2024 3:03 PM WOODWORKING MACHINE FEEDER 04/16/2024 3:06 PM WOODWORKING MACHINE FEEDER Lilian Lind BRANCH LENDING OFFICER LAB BLOOD ORDERABLES Final Result LETTY [address] [facility] Department [place] [address] * Screening Mammogram Bilateral W Alexis (03/25/2024 10:05 AM WOODWORKING MACHINE FEEDER) Anatomical Region Laterality Modality Breast Bilateral Mammography Impressions 03/25/2024 10:24 AM WOODWORKING MACHINE FEEDER BI-RADS?? ATLAS category (overall): 2 - Benign There is no mammographic evidence of malignancy. A 1 year screening mammogram is recommended. The patient has been or will be contacted. We recommend annual screening mammography for women at average risk of breast cancer beginning at age 40, based on guidelines of the [employer] (ACR Practice Parameter for the Performance of Screening and Diagnostic Mammography) and [employer]. For women with and elevated risk of breast cancer, please refer to the ACR Practice Parameter for specific screening recommendations. The patient will be entered into a reminder system with a target due date of 1 year for her next screening exam. Narrative 03/25/2024 10:24 AM WOODWORKING MACHINE FEEDER Screening Mammogram Bilateral W Alexis: 03/25/24 The study was acquired using full [...] Sister. COMPARISONS: 01/31/2023 Diagnostic Mammogram Bilateral W Alexis 01/21/2022 Diagnostic Mammogram Bilateral W Alexis 10/31/2020 Diagnostic Mammogram Bilateral W Alexis 03/27/2020 Radiologic Examination of Surgical Specimen 03/20/2020 Mammo Guided Magseed Localization Right 02/28/2020 US Guided Breast Biopsy Right BREAST TISSUE: There are scattered areas of fibroglandular density. FINDINGS: There are stable postoperative changes of right breast conservation therapy. There is no new suspicious finding in either breast on mammogram. Lilian Lind NP IMG MAMMO PROCEDURES Final Result from Last 3 Months Insurance [facility] [employer] [facility] Care Teams Office Worker Relationship Specialty Start Date End Date Jessica Hardin MD PCP - General Family Medicine 01/26/20 Reshma Simon MD [address] [address] Referring Physician Gynecology 01/26/20 [place] [address] [place] [address] Surgeon Surgical Oncology 12/27/20 Lilian Lind NP [address] [place] [address] Nurse Practitioner Medical Oncology 04/09/22 Katherine Wall MD [address] [place] [address] Radiation Oncologist Radiation Oncology 11/19/23
== END 2024-04-27 11:17 | disposition home or self-care (01) ==
LOC: ANHIMG 11:21
PROVIDERS: PCP Family Medicine; Visit Provider Neurological Surgery
DX: M50.31 Other cervical disc degeneration, high cervical region (principal); Z98.1 Arthrodesis status
CPT/HCPCS: 72040

== ENCOUNTER 2024-10-12 11:42 | Outpatient (CLI) | payer OTHER, SELFPAY ==
--- NOTE | ~2024-10-12 | XR_ITS ---
EXAM/ PROCEDURE: [id number]_[id number]_CR - 10/12/2024 11:55 CDT HISTORY: 54 years old Female with M54.12 - Radiculopathy, cervical region, SURGERY 1 YEAR AGO COMPARISON: None available TECHNIQUE: Three view(s) FINDINGS/ IMPRESSION: C3-C7 ACDF with intact hardware and no loosening. There are no fractures or dislocations.Multilevel degenerative changes are seen. Visualized portion o f lungs are clear. Reviewed, dictated and finalized at location A.
--- OUTSIDE RECORDS SUMMARY | 2024-10-12 11:46 | XMS_ITS | Clinical Summary ---
Author Organization [facility] Address [facility] [place] [address] Care Team Providers Care Product Responsibility Liaison Name Role Phone Jessica Hardin MD Primary Care Provider [phone] Reshma Simon MD Unavailable [phone] Faith Acevedo MD Unavailable [phone] Lilian Lind NP Unavailable [phone] Katherine Wall MD Unavailable [phone] Allergies Active Allergy Reactions Criticality Noted Date [...] mg total) by mouth daily 1 Active acidophilus-pec tin, citrus 100 million cell-10 mg capsule Take by mouth Activ e MULTIVITAMIN ORAL Take by mouth daily Active vitamin E acetate (VITAMIN E ORAL) Take by mouth daily Active VIT-IRON FUM-FOLIC AC ORAL Take by mouth daily Active chlorthalidone 25 mg tablet Take 0.5 tablets (12.5 mg total) by mouth daily 2 Active fluticasone propionate (FLONASE) 50 mcg/actuation nasal spray SHAKE LIQUID AND USE 1 SPRAY IN EACH NOSTRIL TWICE DAILY 2 Active amLODIPine (NORVASC) 5 mg tablet Take 1 tablet (5 mg total) by mouth daily 2 Active HYDROcodone-geoff taminophen (NORCO) 7.5-325 mg per tablet Take by [...] daily 4 Active tamoxifen (NOLVADEX) 20 mg tabletIndicatio ns:Malignant neoplasm of central portion of right breast in female, estrogen receptor positive (HCC),Malignant neoplasm of upper-outer quadrant of left breast in female, estrogen receptor positive (HCC),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 selective estrogen receptor modulators [...] (2 g total) by mouth daily Active ergocalciferol (VITAMIN D) 50,000 unit capsuleIndicati ons:Vitamin D Deficiency Take 1 capsule (50,000 Units total) by mouth once a week 12 capsule 3 5 Active loratadine (CLARITIN) 10 mg tablet Take 1 tablet (10 mg total) by mouth daily 30 tablet 1 5 Active amoxicillin-cla vulanate (AUGMENTIN) 875-125 mg per tabletIndicatio ns:Skin/Soft Tissue Infection Take 1 tablet (875 mg of amoxicillin total) by mouth 2 (two) times a day 20 tablet Active famotidine (PEPCID) 20 mg tablet Take 1 tablet (20 mg total) by mouth 2 (two) times a day 40 tablet 5 04/30/19 26 Active Active Problems Problem Noted Date Diagnosed Date Malignant neoplasm of upper- outer quadrant of left breast in female, estrogen receptor positive 04/16/2024 Mastitis 04/16/2024 Rash 04/16/2024 Personal history of radiation therapy 12/27/2020 History of breast cancer 10/31/2020 Malignant neoplasm of centra l portion of right breast in female, estrogen receptor positive 04/13/2020 Abnormal mammography 02/15/2020 Anxiety due to invasive procedure 02/15/2020 Immunizations Immunization Administration Dates Next Due Influenza, Quadrivalent, Spl [...] you have a drink containing alcohol? Never 04/30/2024 Q2: How many drinks containi ng alcohol do you have on a typical day when you are drinking? Patient does not drink Q3: How often do you have si x or more drinks on one occasion? Never 04/30/2024 Comments No Sex and Gender Information Value Date Recorded Sex Assigned at Not on file Legal Sex Female 12:44 AM RV REPAIRER Gender Identity Not on file Sexual Orientation Not on file Obstetrics History Para Term AB IAB SAB Ectopic Multiple Livin g Live Births 3 2 2 Date Outcome GA Total Labor Labor/2nd/3rd Weight Sex Type Anes PTL Monika A1 A5 Name Clin Term Term Last Filed Vital Signs Vital Sign Reading Time Taken Comments Blood Pressure 172/94 05/04/2024 10:14 AM RV REPAIRER Pulse 75 05/04/2024 10:14 AM RV REPAIRER Temperature 37.1 C (98.8 F) 04/30/2024 2:27 PM RV REPAIRER Respiratory Rate 18 04/30/2024 2:27 PM RV REPAIRER Oxygen Saturation 100% 05/04/2024 10:14 AM RV REPAIRER Inhaled Oxygen Concentration - - Weight 98.9 kg (218 lb) 05/04/2024 10:14 AM RV REPAIRER Height 160 cm (5' 3) 04/16/2024 3:10 PM RV REPAIRER Body Mass Index 38.62 04/16/2024 3:10 PM RV REPAIRER Plan of Treatment Health Maintenance Due Date Last Done Comments Cervical Cancer Screening 1971 Colon Cancer Screening-Colonoscopy 1971 Depression Screening 1971 Hepatitis C Screening 1971 DTaP/Tdap/Td Vaccine (1 - Tdap) 1982 Hepatitis B Screening 1989 Regular Well Visit/Exam 18-64 1989 Pneumococcal vaccine <65 (1 of 2 - PCV) 1990 Zoster Vaccine (1 of 2) 1990 Covid-19 Vaccine (3 - Modern a risk series) 11/01/2020 10/04/2020, 09/06/2020 Influenza Vaccine (#1) 2024 12/27/2020 Breast Cancer Screening-Mammogram 03/25/2025 03/25/2024, 01/31/2023, 01/31/2023, Additional history exists Procedures Procedure Name Priority Date/Time Associated Diagnosis Comments SCREENING MAMMOGRAM BILATERAL W KEITH Schedule Routine, Read Routine (OP Routine) 03/25/2024 10:05 AM RV REPAIRER Encounter for screening mammogram for breast cancer from Last 3 Months or Most Recently Relevant to Health Maintenance Results * Screening Mammogram Bilateral W Keith (03/25/2024 10:05 AM RV REPAIRER) Anatomical Region Laterality Modality Breast Bilateral Mammography Impressions 03/25/2024 10:24 AM RV REPAIRER BI-RADS ATLAS category (overall): 2 - Benign There is no mammographic evidence of malignancy. A 1 year screening mammogram is recommended. The patient has been or will be contacted. We recommend annual screening mammography for women at average risk of breast cancer beginning at age 40, based on guidelines of the [employer] [employer] (ACR Practice Parameter for the Performance of Screening and Diagnostic Mammography) and [place] [employer]. For women with and elevated risk of breast cancer, please refer to the ACR Practice Parameter for specific screening recommendations. The patient will be entered into a reminder system with a target due date of 1 year for her next screening exam. Narrative 03/25/2024 10:24 AM RV REPAIRER Screening Mammogram Bilateral W Keith: 03/25/24 The study was acquired using full field digital technology and interpreted from soft copy. 2D digital mammographic views, as well as 3D digital tomosynthesis were performed in the CC and MLO projections. This study was resulted using Computer-Aided Detection (CAD). CLINICAL: Encounter for screening mammogram for breast cancer. Medical history includes breast cancer. History of breast cancer in Maternal Grandmother, Sister. [...] PROCEDURES Final Result from Last 3 Months or Most Recently Relevant to Health Maintenance Insurance [facility] CHOICE [facility]US [facility] HMO/PPO Address: [address] [address] [place] [address] [facility] Care Teams Product Responsibility Liaison Relationship Specialty Start Date End Date Jessica Hardin MD PCP - General Family Medicine 01/26/20 Reshma Simon MD [address] [address] Referring Physician Gynecology 01/26/20 Faith Acevedo MD [address] [address] Surgeon Surgical Oncology 12/27/20 Lilian Lind NP [address] [place] [address] 225959 Nurse Practitioner Medical Oncology 04/09/22 Katherine Wall MD [address] [place] [address] Radiation Oncologist Radiation Oncology 11/19/23
--- OUTSIDE RECORDS SUMMARY | 2024-10-12 11:46 | XMS_ITS | Clinical Summary ---
Author Organization [facility] Address [address] [place] [address] Care Team Providers Care Visitor Use Assistant Name Role Phone Jessica Hardin MD Primary Care Provider [phone] Source Comments [facility],non-owned Affiliates and Associated Physician Practices is amultiple site organization consisting of ambulatory clinics and hospital sitesin [place], [place], [place] and [place]. This disclosure is being madepursuant to the Care Everywhere program and may not contain all information available regarding this patient. Last updated 17.[facility] Allergies Active Allergy Reactions Criticality Noted Date Comments Levonorgestrel-Ethinyl Estrad Cough,Unknown Low Medications * Be aware that medications may not be up to date on this document. Alwaysverify current medications with the patient. amLODIPine (Norvasc) 5 MG tablet Take 1 (one) tablet by mouth once daily 4 Active chlorthalidone (Hygroton) 25 MG tablet Take 1 (one) tablet by mouth every morning 4 Active metoprolol succinate XL 24hr (Toprol XL) 25 MG tablet Take 1 (one) tablet by mouth once daily 4 Active mirtazapine (Remeron) 7.5 MG tablet 4 Active oxyBUTYnin (Ditropan) 5 MG tablet Take 1 (one) tablet by mouth once daily 4 Active tamoxifen (Nolvadex) 20 MG tablet 4 Active loratadine (Claritin) 10 MG tablet Take 1 (one) tablet by mouth once daily Active vitamin D, ergocalciferol, (Drisdol) 1.25 MG (90886 UT) capsule Take 1 (one) capsule by mouth 5 Active pregabalin (Lyrica) 75 MG capsule 5 Active triamcinolone acetonide (Kenalog) 0.1 % ointment APPLY THIN LAYER TOPICALLY TO THE AFFECTED AREA TWICE DAILY FOR 2 WEEKS FOR RASH. STOP FOR 2 WEEKS. REPEAT NEEDED. AVOID FACE 5 Active Active Problems Problem Noted Date Diagnosed [...] Encounters Date Type Department Care Team Description 08/24/2024 10:45 AM CDT Office Visit [facility] [address], [facility] [address] [place] [id number] Sterling Griffiths Che, MD Nocturia (Primary Dx); Incomplete uterovaginal prolapse; Urge incontinence; Frequency of micturition 08/24/2024 Travel 07/20/2024 Telephone [facility] - Rheumatology [address] [place] [phone] Avery Bob MD Appointment 07/20/2024 Orders Only [facility] [address] [place] [address] [phone] Avery Bob MD Positive LEEANN (antinuclear antibody) 07/20/2024 Orders Only [facility] [address] [place] [address] [phone] Avery Bob MD Positive LEEANN (antinuclear antibody) ; Centromere antibody positive; Pulmonary hypertension, high resistance (HCC) from Last 3 Months Family History Medical [...] drink = 0.6 oz pur e alcohol) PHQ-2 Answer Date Recorded Patient Health Questionnaire-2 Score 0 08/24/2024 Comments No Sex and Gender Information Value Date Recorded Sex Assigned at Not on file Legal Sex Female 11:32 AM COLD SAW OPERATOR Gender Identity Not on file Sexual Orientation Not on file Last Filed Vital Signs Vital Sign Reading Time Taken Comments Blood Pressure 130/74 08/24/2024 10:37 AM CDT Pulse 74 07/12/2024 10:27 AM CDT Temperature 36.7 C (98.1 F) 07/12/2024 10:27 AM CDT Respiratory Rate - - Oxygen Saturation 97% 07/12/2024 10: 27 AM CDT Inhaled Oxygen Concentration - - Weight 100.4 kg (221 lb 6.4 oz) 025 10:37 AM CDT Height 158.8 cm (5' 2.5) 08/24/2024 10 :37 AM CDT Body Mass Index 39.85 08/24/2024 10:37 AM CDT Plan of Treatment Upcoming Encounters Date Type Department Care Team (Late st Contact Info) Description 02/23/2025 9:50 AM COLD SAW OPERATOR Office Visit [facility] [address] [address] Sterling Griffiths Che, MD [address] [facility] [address] [place] [address] Health Maintenance Due Date Last Done Comments COLOGUARD (AGES 45-75) - COLON CA SCREENING 1971 COLON MONITORING 1971 COLONOSCOPY - COLON CA SCREENING 1971 CT COLONOGRAPHY - COLON CA SCREENING 1971 Colorectal Cancer Screening 1971 FIT - COLON CA SCREENING 1971 FLEX SIG - COLON CA SCREENING 1971 LIPID TESTING 1971 HIV SCREENING 1986 HEPATITIS C SCREENING 01/19/1989 DTAP/TDAP/TD VACCINES (1 - Tdap) 1990 HEPATITIS B VACCINE (1 of 3 - 19+ 3-dose series) 1990 PAP SMEAR 01/25/1992 PNEUMOCOCCAL VACCINE 50+ (1 of 1 - PCV) 2021 ZOSTER VACCINE (1 of 2) 2021 COVID-19 VACCINE (3 - season) 2023 10/04/2020, 09/06/2020 SCREENING FOR DIABETES 02/10/2024 INFLUENZA VACCINE (#1) 2024 12/27/2020 MAMMOGRAM 03/25/2026 03/25/2024, 04/2024, 01/31/2023, Additional history exists DEPRESSION SCREENING Completed 07/12/2024 HIB VACCINE Aged Out No longer eligi ble based on patient's age to complete this topic HPV VACCINE Aged Out No longer eligi ble based on patient's age to complete this topic MENINGOCOCCAL (Group B) VACCINE SHARED DECISION-MAKING Aged Out No longer eligible based on patient's age to complete this topic MENINGOCOCCAL GROUPS A/C/Y/W VACCINE Aged Out No longer eligible based on patient's age to complete this topic Insurance [address] [address] Care Teams Visitor Use Assistant Relationship Specialty Start Date End Date Jessica Hardin MD [address] [place] [address] PCP - General Family Medicine 02/10/24
--- OUTSIDE RECORDS SUMMARY | 2024-10-12 11:46 | XMS_ITS ---
Author Organization [facility] Address [facility] [place] [address] Care Team Providers Care Blast Furnace Helper Name Role Phone Jessica Hardin MD Primary Care Provider [phone] Reshma Simon MD Unavailable [phone] Faith Acevedo MD Unavailable [phone] Lilian Lind NP Unavailable [phone] Katherine Wall MD Unavailable [phone] Active Problems Problem Noted Date Diagnosed Date Malignant neoplasm of upper- outer quadrant of left breast in female, estrogen receptor positive 04/16/2024 Mastitis 04/16/2024 Rash 04/16/2024 Personal history of radiation therapy 12/27/2020 History of breast cancer 10/31/2020 Malignant neoplasm of centra l portion of right breast in female, estrogen receptor positive 04/13/2020 Abnormal mammography 02/15/2020 Anxiety due to invasive procedure 02/15/2020 Current Treatment and Therapy Plans Hydration Therapy Plan* Plan Start Date:04/16/2024 Plan Provider:Lilian Lind, BOBBY Linked Problems RashMastitisMalignant neopla sm of central portion of right breast in female, estrogen receptor positive (HCC)Malignant neoplasm of upper-outer quadrant of left breast in female, estrogen receptor positive (HCC) Treatment Medications No medications scheduled. Past Treatment and Therapy Plans No past plan information found. Radiation Treatments * Course C1 R BREAST 202005/03/2020 - 05/26/2020 Treatment Period Energy Fraction Dose Fractions Total Dose Plans Planned R BREAST 05/03/2020 - 05/26/2020 267 15 / ,005 Reference Points Delivered PEREZ DPV 05/03/2020 - 05/26/2020,
--- OUTSIDE RECORDS SUMMARY | 2024-10-12 11:46 | XMS_ITS | Encounter Summary ---
Author Organization [facility] Address [address] [place] [address] Care Team Providers Care Cafeteria Cashier Name Role Phone Jessica Hardin MD Primary Care Provider [phone] Reshma Simon MD Unavailable [phone] Katherine Wall MD Unavailable [phone] Faith Acevedo MD Unavailable [phone] Ji Bean MD, Russ Unavailable + [phone] Lilian Lind NP Unavailable + [phone] Katherine Wall MD Unavailable [phone] Encounter Details Date Type Department Care Team (Late st Contact Info) Description 07/06/2021 Documentation [facility] OP Physical Therapy [address] [id number] Cristobal Packer, PT Social History Tobacco Use Types Packs/Day Years Used Date Smoking Tobacco: Never Smokeless Tobacco: Never Alcohol Use Standard Drinks/Week Comments Yes 1 (1 standard drink = 0.6 oz pur e alcohol) Comments No Sex and Gender Information Value Date Recorded Sex Assigned at Not on file Legal Sex Female 12:44 AM CORRECTIONS CORPORAL Gender Identity Not on file Sexual Orientation Not on file documented as of this encounter Plan of Treatment Not on file documented as of this encounter Visit Diagnoses Not on filedocumented in this encounter Care Teams Cafeteria Cashier Relationship Specialty Start Date End Date Jessica Hardin MD PCP - General Family Medicine 01/26/20 Reshma Simon MD [address] [facility] [address] [place], [place] [phone] Referring Physician Gynecology 01/26/20 Katherine Wall MD [facility] [facility] [address] [place] [address] Radiation Oncologist Radiation Oncology 12/27/20 Faith Acevedo MD [address] [facility] [address] [place] [address] Surgeon Surgical Oncology 12/27/20 Russ Workman Jr., MD [address] [facility] [address] [place] [address] Medical Oncologist/Community Service Officer Coordinator Medical Oncology 04/05/21 04/08/22 Lilian Lind NP [address] [facility] [address] [place], [place] [address] Nurse Practitioner Medical Oncology 04/09/22 Katherine Wall MD [address] [facility] [address] [place], [place] [address] Radiation Oncologist Radiation Oncology 11/19/23 documented as of this encounter
--- OUTSIDE RECORDS SUMMARY | 2024-10-12 11:46 | XMS_ITS | Clinical Summary ---
Author Organization [facility] Address [address] [place] [address] Care Team Providers Care Power Cutting Machine Operator Name Role Phone Jessica Hardin MD Primary Care Provider [phone] Allergies Active Allergy Reactions Criticality Noted Date [...] 77 11/22/2021 9:08 AM CDT Temperature 36.7 C (98.1 F) 04/18/2021 12:00 PM REAL ESTATE DEVELOPER Respiratory Rate 17 04/18/2021 12:00 PM REAL ESTATE DEVELOPER Oxygen Saturation 97% 04/18/2021 12:00 PM REAL ESTATE DEVELOPER Inhaled Oxygen Concentration - - Weight 95.7 kg (211 lb) 11/22/2021 9:08 AM CDT Height 157.5 cm (5' 2) 11/22/2021 9:08 AM CDT Body Mass Index 38.59 11/22/2021 9:08 AM CDT Plan of Treatment Health Maintenance Due Date Last Done Comments DTAP/TDAP/TD VACCINES (1 - Tdap) 1990 HEPATITIS B VACCINES (1 of 3 - 19+ 3-dose series) 1990 HPV/Cotest (21-29) 01/25/1992 CERVICAL CANCER SCREENING 2001 HPV/Cotest (30-65) 2001 PAP SMEAR 2001 COLORECTAL SCREENING 01/25/2016 Colorectal Cancer Screening 01/25/2016 FIT-DNA Q 3 years 01/25/2016 FIT/FOBT Q 1 year 01/25/2016 Flex Sig/CT Colonography Q 5 years 01/25/2016 ZOSTER VACCINE (1 of 2) 2021 BREAST CANCER SCREENING 02/01/2024 02/01/20 23, 01/21/2022, 10/31/2020 INFLUENZA VACCINE (#1) 2024 12/27/2020 Medical Devices Implanted Type Area Batch Room Technician Device Identifier Shelf Expiration Date Model / Serial / Lot Duragen + 1x1in Dp-1011 - [id number] Implanted:Qty: 1 on 04/17/2021 by Yamil Harden MD at [facility] Graft N/A: Spine Lumbar [employer] 11/22/2023 [id number] / / [id number] Hemostatic Surgifoam Sz12-7 1971 - [id number] Implanted:Qty: 1 on 04/17/2021 by Yamil Harden MD at [facility] Hemostatic N/A: Spine Lumbar [employer] 09/06/2024 [id number] / / [id number] Hemostatic Surgiflo 8ml W/ Thrombin 299 - [id number] Implanted:Qty: 1 on 04/17/2021 by Yamil Harden MD at [facility] Hemostatic N/A: Spine Lumbar [employer] 07/21/2022 [id number] / / [id number] Insurance [facility] Address: [facility] [id number] [place] [address] MEDICAID [place] RX [employer] Express Advance Directives For more information, please contact: [phone] * Full Code (Latest Code Status on File) Date Activated Date Inactivated Comments 04/17/2021 1:53 PM 04/18/2021 7:46 PM Care Teams Power Cutting Machine Operator Relationship Specialty Start Date End Date Jessica Hardin MD [address] [place] [address] PCP - General Family Practice 01/22/21
--- OUTSIDE RECORDS SUMMARY | 2024-10-12 11:46 | XMS_ITS | Encounter Summary ---
Author Organization [facility] Care Team Providers Care Delicatessen Slicer Name Role Phone Reshma Simon MD Primary Care Provider + Jessica Hardin MD Primary Care Provider [phone] Reshma Simon MD Unavailable [phone] Jorge Marr MD PhD Unavailable [phone] Katherine Wall MD Unavailable [phone] Faith Acevedo MD Unavailable [phone] Ji Bean MD, [facility] Unavailable + [phone] Lilian Lind MEDICAL BILLING SERVICE Unavailable + [phone] Katherine Wall MD Unavailable [phone] Encounter Details Date Type Department Care Team (Latest Contact Info) Description 07/04/2015 Orders Only [facility]IN[facility] ProviderCisco MD [address] [place] [address] Social History Tobacco Use Types Packs/Day Years Used Date Smoking Tobacco: Never Assessed Alcohol Use Standard Drinks/Week Comments Yes 0 (1 standard drink = 0.6 oz pur e alcohol) Comments Unknown Sex and Gender Information Value Date Recorded Sex Assigned at Not on file Legal Sex Female 12:[address] Gender Identity Not on file Sexual Orientation [...] AM CDT Ordered by an unspecified provider. [facility] Provider CV CARDIAC SERVICES PROCE DURES Final Result * CARDIOLOGY REPORT (08/09/2015 12:00 AM CDT) Anatomical Region Laterality Modality Other Narrative 08/09/2015 12:00 AM CDT Ordered by an unspecified provider. [facility] Provider CV CARDIAC SERVICES PROCE DURES Final Result documented in this encounter Visit Diagnoses Not on filedocumented in this encounter Care Teams Delicatessen Slicer Relationship Specialty Start Date End Date Reshma Simon MD [address] [facility] [address] [place] [address] PCP - General 04/26/13 01/25/20 Jessica Hardin MD [address] [facility] [address] [place] [address] PCP - General Family Medicine 01/26/20 Reshma Simon MD [address] [place] [address] Referring Physician Gynecology 01/26/20 Jorge Marr MD PhD [address] [facility] [address] [place] [address] Medical Oncologist Medical Oncology 05/03/20 04/04/21 Katherine Wall MD [address] [facility] [facility] [address] [place] [address] Radiation Oncologist Radiation Oncology 12/27/20 Faith Acevedo MD [address] [address] Surgeon Surgical Oncology 12/27/20 Russ Workman Jr., MD [address] [address] Medical Oncologist/Cellular Phone Repairer Medical Oncology 04/05/21 04/08/22 Lilian Lind NP [address] [place] [phone] Nurse Practitioner Medical Oncology 04/09/22 Katherine Wall MD [address] [place] [address] Radiation Oncologist Radiation Oncology 11/19/23 documented as of this encounter
--- OUTSIDE RECORDS SUMMARY | 2024-10-12 11:46 | XMS_ITS | Referral Summary ---
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 selective [...] on file Legal Sex Female 12:44 AM TENTER FRAME OPERATOR Gender Identity Not on file Sexual Orientation Not on file Last Filed Vital Signs Vital Sign Reading Time Taken Comments Blood Pressure 172/94 05/04/2024 10:14 AM TENTER FRAME OPERATOR Pulse 75 05/04/2024 10:14 AM TENTER FRAME OPERATOR Temperature 37.1 C (98.8 F) 04/30/2024 2:27 PM TENTER FRAME OPERATOR Respiratory Rate 18 04/30/2024 2:27 PM TENTER FRAME OPERATOR Oxygen Saturation 100% 05/04/2024 10:14 AM TENTER FRAME OPERATOR Inhaled Oxygen Concentration - - Weight 98.9 kg (218 lb) 05/04/2024 10:14 AM TENTER FRAME OPERATOR Height 160 cm (5' 3) 04/16/2024 3:10 PM TENTER FRAME OPERATOR Body Mass Index 38.62 04/16/2024 3:10 PM TENTER FRAME OPERATOR Plan of Treatment Not on file Procedures Procedure Name Priority Date/Time Associated Diagnosis Comments SCREENING MAMMOGRAM BILATERAL W KEITH Schedule Routine, Read Routine (OP Routine) 03/25/2024 10:05 AM TENTER FRAME OPERATOR Encounter for screening mammogram for breast cancer from Last 3 Months or Most Recently Relevant to Health Maintenance Results * Screening Mammogram Bilateral W Keith (03/25/2024 10:05 AM TENTER FRAME OPERATOR) Anatomical Region Laterality Modality Breast Bilateral Mammography Impressions 03/25/2024 10:24 AM TENTER FRAME OPERATOR BI-RADS ATLAS category (overall): 2 - Benign There is no mammographic evidence of malignancy. A 1 year screening mammogram is recommended. The patient has been or will be contacted. We recommend annual screening mammography for women at average risk of breast cancer beginning at age 40, based on guidelines of the [employer] (ACR Practice Parameter for the Performance of Screening and Diagnostic Mammography) and [employer]. For women with and elevated risk of breast cancer, please refer to the ACR Practice Parameter for specific screening recommendations. The patient will be entered into a reminder system with a target due date of 1 year for her next screening exam. Narrative 03/25/2024 10:24 AM TENTER FRAME OPERATOR Screening Mammogram Bilateral W Keith: 03/25/24 The [...] Most Recently Relevant to Health Maintenance Insurance [facility] OTHER Address: [facility] [address] [place] [address] [facility] Address: [address] [address] [place] [address] [employer] [facility] Care Teams Plant Taxonomist Relationship Specialty Start Date End Date Jessica Hardin MD PCP - General Family Medicine 01/26/20 Reshma Simon MD [address] [address] Referring Physician Gynecology 01/26/20 Faith Acevedo MD [address] [address] Surgeon Surgical Oncology 12/27/20 Lilian Lind NP [address] [place] [address] Nurse Practitioner Medical Oncology 04/09/22 Katherine Wall MD [address] [place] [address] [address] [place] [address] Radiation Oncologist Radiation Oncology 11/19/23
== END 2024-10-12 11:43 | disposition home or self-care (01) ==
PROVIDERS: PCP Family Medicine; Visit Provider Neurological Surgery
DX: M47.812 Spondylosis without myelopathy or radiculopathy, cervical region (principal)
CPT/HCPCS: 72040

== ENCOUNTER 2024-10-25 12:30 | Outpatient (RCR) | payer OTHER, SELFPAY ==
--- NOTE | 2024-07-28 12:07 | OPREHPOC ---
Outpatient Therapy Plan of Care This is a Multidisciplinary Plan of Care that may contain components documented by all disciplines (PT, OT, and ST.) PT Problem 1 PT Problem #1 Knowledge Deficit PT Goal 1 Goal / Goal Update *independent with HEP--land and water Target Visit 10 PT Problem 2 PT Problem #2 Pain PT Goal 1 Goal / Goal Update 1* pt report pain at worst of 6/10 in back 2* radicular pain R LE to mid calf at worst 3* radicular pain L LE to mid calf at worst Target Visit 10 PT Problem 3 PT Problem #3 Impaired Strength PT Goal 1 Goal / Goal Update 1* increase trunk and hip strength to 4+/5 2* single leg standing R 10 seconds 3* single leg standing L 10 seconds Target Visit 10 PT Problem 4 PT Problem #4 Impaired Functional Mobility PT Goal 1 Goal / Goal Update * 2 minute walking test distance of 375' Target Visit 10 PT Problem 5 PT Problem #5 Impaired Flexibility PT Goal 1 Goal / Goal Update * increase R anterior hip/quad length with prone knee flexion to 110' Target Visit 10
--- NOTE | 2024-07-28 12:07 | PTOPEVAL1 ---
Assessment and note entered by Tiara Jefferson, PT Evaluation Information Assessment Status Evaluation ICD-10 Condition Codes (PT) Pain in low back M54.50,Abnormalities of gait and mobility R26.9,Weakness R53.1 Other ICD-10 Condition Codes ( R29.898other signs & symptoms of musculoskeletal PT) system Onset May 2024 Subjective Information reports pain over entire back area--neck and low back; most pain in low back at this time--to have treatment for back and legs; more problems with weakness in legs and problems with walking and stairs; have had 2 falls in past few months due to R leg gave out and fell; have had chronic pain in back since back surgery; have had PT in the past for her back-traction & exercises helped; is under the care of reflesher- new referral/ doing testing, neurologist-neck surgeon; activity: does not work outside of home; is independent with self and light home tasks; is not able to do heavy tasks or lifting; Reported Pain Level Pain Score Self Report lumbar Additional Pain Score Comments pain range in the past week: 5-8/10; radicular pain- intermittent tingle into R LE to toes/ L intermittent pressure to toes & cramps in foot increase pain: standing/walking tolerance of 30 minutes; sitting tolerance 15 minutes decrease pain: change positions, rub foot/leg, hydrocodone, tylenol report with sleeping- whole body hurts- 2 hours sleep at time legs are swollen and tightness over top of foot- have ordered compression socks for legs Assessment PT Clinical Summary Teresa has the diagnosis of symptoms of musculoskeletal system. She reports back and legs are her most concern at this time, treatment will be for the back. She has had 2 falls due to R leg giving out. Self assessment with Oswestry rating of 56% limitation in activity level. Sleeping, standing and walking are limited due to back and radicular R and L leg pain. Medical history includes: neck surgery, back surgery, coccyx fracture due to fall, migraines, breast cancer with radiation and chemotherapy. With the evaluation: she has poor standing posture of trunk and hips, with weakness of trunk and hips; decreased flexibility over R anterior hip/quad muscle; decreased single leg standing tolerance due to weakness of legs; 2 minute walking test distance of 310'; Skilled PT services are indicated for modalities to decrease pain and spasms; therapeutic exercises and activities on land and in the water, to increase LE strength, flexibility and education for posture, body mechanics and HEP. Plan of Care Interventions Aquatic Therapy,Hot Pack/Cold Pack,Manual Therapy, Mechanical Traction,Neuro Re-education,Patient/ Caregiver Education,Therapeutic Activities, Therapeutic Exercise,Other Other Interventions taping PT Services Indicated Yes Treatment Frequency and 1-2x/wk for 10 visits Duration These treatments will address the objective and functional deficits as defined above. The patient will be advanced safely and appropriately in order for the patient to progress towards his/her prior level of function. Additional exercises will be introduced and as well as a comprehensive home exercise program upon discharge, if needed, ?to ensure carryover of functional gains achieved in the clinic. This treatment plan has been reviewed and agreement upon by the patient.
--- NOTE | 2024-09-03 13:19 | OPREHPOC ---
Outpatient Therapy Plan of Care This is a Multidisciplinary Plan of Care that may contain components documented by all disciplines (PT, OT, and ST.) PT Problem 1 PT Problem #1 Knowledge Deficit PT Goal 1 Goal / Goal Update *independent with HEP--land and water 09-03-24 progress met goal continue to progress education Target Visit 15 PT Problem 2 PT Problem #2 Pain PT Goal 1 Goal / Goal Update 1* pt report pain at worst of 6/10 in back 2* radicular pain R LE to mid calf at worst 3* radicular pain L LE to mid calf at worst 09-03-24 progress goals not met continue towards goals Target Visit 15 PT Problem 3 PT Problem #3 Impaired Strength PT Goal 1 Goal / Goal Update 1* increase trunk and hip strength to 4+/5 2* single leg standing R 10 seconds 3* single leg standing L 10 seconds 09-03-24 progress met goals 2,3 continue towards goal 1 Target Visit 15 PT Problem 4 PT Problem #4 Impaired Functional Mobility PT Goal 1 Goal / Goal Update * 2 minute walking test distance of 375' 09-03-24 progress met goal Target Visit 10 Progress Met PT Goal 2 Goal / Goal Update NEW GOAL: * 2 minute walking test distance of 450' Target Visit 15 PT Problem 5 PT Problem #5 Impaired Flexibility PT Goal 1 Goal / Goal Update * increase R anterior hip/quad length with prone knee flexion to 110' 09-03-24 progress met goal Target Visit 10 Progress Met
--- NOTE | 2024-09-03 13:19 | PTOPPROG ---
Assessment and note entered by Tiara Jefferson, PT Assessment Status Progress ICD-10 Condition Codes (PT) Pain in low back M54.50,Abnormalities of gait and mobility R26.9,Weakness R53.1 Other ICD-10 Condition Codes ( R29.898other signs & symptoms of musculoskeletal PT) system Onset May 2024 Subjective Information since coming for therapy--better with going up the stairs, doing every other foot; therapy is helping & have some improvements; doing the exercises at home, determined to get better; want to continue with more therapy. PAIN: range in the past week: 5- 7/10; radicular pain R LE constant to toes/ L LE intermittent to toes report sleeping tolerance 2-3 hours/time; walking- standing tolerance 30 minutes Assessment PT Clinical Summary Teresa has received 9 PT sessions. Compared to the initial evaluation: pain rating from 5-8/10 to 5-7/10; continues to have radicular pain into both legs, to toes: R is constant and L is intermittent; self assessment Oswestry rating is the same at 56% limitation in activity level; increase reported sleeping tolerance from 2 to 2-3 hours at time; reported walking/standing tolerance is the same at 30 minutes; increase strength of trunk, R and L hips to 4 to 4+/5; 2 minute walking distance from 310 to 410'; education for HEP and posture/body mechanics. The goals were partially met. Continue PT treatment. Plan of Care Interventions Aquatic Therapy,Hot Pack/Cold Pack,Manual Therapy, Mechanical Traction,Neuro Re-education,Patient/ Caregiver Education,Therapeutic Activities, Therapeutic Exercise,Other Other Interventions taping PT Services Indicated Yes Treatment Frequency and 1x/wk for 6 visits Duration These treatments will address the objective and functional deficits as defined above. The patient will be advanced safely and appropriately in order for the patient to progress towards his/her prior level of function. Additional exercises will be introduced and as well as a comprehensive home exercise program upon discharge, if needed, ?to ensure carryover of functional gains achieved in the clinic. This treatment plan has been reviewed and agreement upon by the patient.
--- NOTE | 2024-10-25 13:30 | OPREHPOC ---
Outpatient Therapy Plan of Care This is a Multidisciplinary Plan of Care that may contain components documented by all disciplines (PT, OT, and ST.) PT Problem 1 PT Problem #1 Knowledge Deficit PT Goal 1 Goal / Goal Update *independent with HEP--land and water 09-03-24 progress met goal continue to progress education 10-25-24 progress goal met continue to progress education Target Visit 21 PT Problem 2 PT Problem #2 Pain PT Goal 1 Goal / Goal Update 1* pt report pain at worst of 6/10 in back 2* radicular pain R LE to mid calf at worst 3* radicular pain L LE to mid calf at worst 09-03-24 progress goals not met continue towards goals 10-25-24 progress goals not met; pain at 10/10; radicular R to toes and L to knee continue towards Target Visit 21 PT Problem 3 PT Problem #3 Impaired Strength PT Goal 1 Goal / Goal Update 1* increase trunk and hip strength to 4+/5 2* single leg standing R 10 seconds 3* single leg standing L 10 seconds 09-03-24 progress met goals 2,3 continue towards goal 1 10-25-24 progress goal 2,3 met continue towards goal 1 Target Visit 21 PT Problem 4 PT Problem #4 Impaired Functional Mobility PT Goal 1 Goal / Goal Update * 2 minute walking test distance of 375' 09-03-24 progress met goal Target Visit 10 Progress Met PT Goal 2 Goal / Goal Update NEW GOAL: * 2 minute walking test distance of 450' 10-25-24 progress goal not met 375' continue towards Target Visit 21 PT Problem 5 PT Problem #5 Impaired Flexibility PT Goal 1 Goal / Goal Update * increase R anterior hip/quad length with prone knee flexion to 110' 09-03-24 progress met goal 10-25-24 progress NEW goal: anterior hip/quad length with prone knee flexion 1* R 125' 2* L 130' Target Visit 21 Progress Met
--- NOTE | 2024-10-25 13:31 | PTOPPROG ---
Assessment and note entered by Tiara Jefferson, PT Assessment Status Progress ICD-10 Condition Codes (PT) Pain in low back M54.50,Abnormalities of gait and mobility R26.9,Weakness R53.1 Other ICD-10 Condition Codes ( R29.898other signs & symptoms of musculoskeletal PT) system Onset May 2024 Subjective Information therapy helps some, but sometimes it does not; R hip hurts less in the front, not lock up anymore; after sitting 15-20 minutes doing puzzles and get up have more pain; feel like I need a full body scan- pain all over and pretty soon will be in a wheelchair because hurting so much; go to dr next week for follow up for back; see ENT this week for problems swallowing; Also: have cervical orders from Dr Guzmán, but want to complete with her back pain treatment. PAIN: range in the past week: 4-10/10; radicular pain R LE constant to toes/ L LE constant to knee & intermittent to toes report sleeping tolerance with meds 3 hours/time; walking-standing tolerance 20-25 minutes increase pain: sitting, transfer sit to stand decrease pain: hydrocodone 1x/day, tylenol for day time, tylenol PM with sleeping Assessment PT Clinical Summary Teresa has received 13 PT sessions from July 28 to October 18 (51 days) for back pain. She called and canceled 1 appointment. She presents with new orders for cervical treatment from Dr Guzmán. Discussed with pt, will complete treatment for low back then evaluate and begin treatment for her neck. Compared to the last assessment for her back: pain from 5-7/10 to 4-10/10; continues to have radicular pain into R LE to toes that is constant and L LD from interment to now constant to knee and sometimes to her toes; reported tolerances with sleeping from 2-3 hours to now 3 hours at time with meds; and standing/walking tolerance from 30 minutes to 20-25 minutes; 2 minute walking test distance of 410' to 375' with increase pain to 7/10 and radicular pain into L to toes; continues to have pain and tightness over R > L anterior hip with pain over psoas; The goals are partially met. Continue PT treatment for low back pain. Plan of Care Interventions Aquatic Therapy,Hot Pack/Cold Pack,Manual Therapy, Mechanical Traction,Neuro Re-education,Patient/ Caregiver Education,Therapeutic Activities, Therapeutic Exercise,Other Other Interventions taping PT Services Indicated Yes Treatment Frequency and 1-2x/wk for 8 visits Duration These treatments will address the objective and functional deficits as defined above. The patient will be advanced safely and appropriately in order for the patient to progress towards his/her prior level of function. Additional exercises will be introduced and as well as a comprehensive home exercise program upon discharge, if needed, ?to ensure carryover of functional gains achieved in the clinic. This treatment plan has been reviewed and agreement upon by the patient.
--- NOTE | 2024-11-01 10:41 | PCPTNOTE ---
pt called and canceled today's PT appointment due to illness.
== END 2024-10-26 23:59 | disposition home or self-care (01) ==
LOC: ANHPT 12:30
PROVIDERS: PCP Family Medicine; Visit Provider Family Medicine
DX: R29.898 Other symptoms and signs involving the musculoskeletal system (principal)
CPT/HCPCS: 97110; 97113; 97140; 97162; 97530

== ENCOUNTER 2024-12-01 13:41 | Outpatient (CLI) | payer OTHER, SELFPAY ==
--- NOTE | ~2024-12-01 | XR_ITS ---
MODIFIED ESOPHAGRAM HISTORY: Dysphagia. TECHNIQUE: Modified barium esophagram was performed on 12/01/2024. I administered fluoroscopy and performed the exam with speech pathologist. Patient was seated for lateral fluoroscopic imaging for ingestion of thin liquids, pudding, solids and quantified amounts, followed by thin liquids in uncontrolled amounts. This was recorded on tape. A single fluoroscopic spot image was also recorded. The DAP for this procedure was 0.9 Gycm2. The amount of fluoroscopy time used during this procedure was 1.1 minutes. FINDINGS: Oral stage: Adequate function. Pharyngeal stage: Adequate function. Cervical/esophageal stage: Adequate function. IMPRESSION: Patient tolerated regular consistency oral feedings in the upright position. Please correlate with speech pathologist findings and specific feeding recommendations. Reviewed, dictated and finalized at location A. IMPRESSION: Patient tolerated regular consistency oral feedings in the upright position. Please correlate with speech pathologist findings and specific feedi ng recommendations.
--- OUTSIDE RECORDS SUMMARY | 2024-12-01 14:21 | XMS_ITS | Encounter Summary ---
Author Organization [facility] Healthcare Address [address] [place] [address] Care Team Providers Care Director Medical Surgical Name Role Phone Jessica Hardin MD Primary Care Provider [phone] Reshma Simon MD Unavailable [phone] Katherine Wall MD Unavailable [phone] Faith Acevedo MD Unavailable [phone] Ji Bean MD, Russ Unavailable + [phone] Lilian Lind NP Unavailable + [phone] Katherine Wall MD Unavailable [phone] Encounter Details Date Type Department Care Team (Late st Contact Info) Description 07/06/2021 Documentation [facility] OP Physical Therapy [address] [address] Cristobal Packer, PT Social History Tobacco Use Types Packs/Day Years Used Date Smoking Tobacco: Never Smokeless Tobacco: Never Alcohol Use Standard Drinks/Week Comments Yes 1 (1 standard drink = 0.6 oz pur e alcohol) Comments No Sex and Gender Information Value Date Recorded Sex Assigned at Not on file 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 Gender Identity Not on file Sexual Orientation Not on file documented as of this encounter Plan of Treatment Not on file documented as of this encounter Visit Diagnoses Not on filedocumented in this encounter Care Teams Director Medical Surgical Relationship Specialty Start Date End Date Jessica Hardin MD PCP - General Family Medicine 01/26/20 Reshma Simon MD [address] [facility] [address] [place], [place] [id number] Referring Physician Gynecology 01/26/20 Katherine Wall MD [facility] [address] [place] [address] Radiation Oncologist Radiation Oncology 12/27/20 Faith Acevedo MD [address] [facility] [address] [place] [address] Surgeon Surgical Oncology 12/27/20 Russ Workman Jr., MD [address] [facility] [address] [place] [address] Medical Oncologist/Sports Fitness And Wellness Director Medical Oncology 04/05/21 04/08/22 Lilian Lind NP [address] [facility] [address] [place], [place] [address] Nurse Practitioner Medical Oncology 04/09/22 Katherine Wall MD [address] [facility] [address] [place], [place] [address] Radiation Oncologist Radiation Oncology 11/19/23 documented as of this encounter
--- OUTSIDE RECORDS SUMMARY | 2024-12-01 14:21 | XMS_ITS | Encounter Summary ---
Author Organization [facility] Facility Care Team Providers Care Fruit And Vegetable Classer Name Role Phone Reshma Simon MD Primary Care Provider + Jessica Hardin MD Primary Care Provider [phone] Reshma Simon MD Unavailable [phone] Jorge Marr MD PhD Unavailable [phone] Katherine Wall MD Unavailable [phone] Faith Acevedo MD Unavailable [phone] Ji Bean MD, [facility] Unavailable + [phone] Lilian Lind FLOOR CASHIER Unavailable + [phone] Katherine Wall MD Unavailable +[phone] Encounter Details Date Type Department Care Team (Latest Contact Info) Description 07/04/2015 Orders Only [facility] CLINCONV ProviderCisco MD [address] [place] [address] Social History Tobacco Use Types Packs/Day Years Used Date Smoking Tobacco: Never Assessed Alcohol Use Standard Drinks/Week Comments Yes 0 (1 standard drink = 0.6 oz pur e alcohol) Comments Unknown Sex and Gender Information Value Date Recorded Sex Assigned at Not on file 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 [facility] Provider CV CARDIAC SERVICES PROCE DURES Final Result * CARDIOLOGY REPORT (08/09/2015 12:00 AM CDT) Anatomical Region Laterality Modality Other Narrative 08/09/2015 12:00 AM CDT Ordered by an unspecified provider. [facility] Provider CV CARDIAC SERVICES PROCE DURES Final Result documented in this encounter Visit Diagnoses Not on filedocumented in this encounter Care Teams Fruit And Vegetable Classer Relationship Specialty Start Date End Date Reshma Simon MD [address] [place] [address] PCP - General 04/26/13 01/25/20 Jessica Hardin MD 2022 [address] [place] [address] PCP - General Family Medicine 01/26/20 Reshma Simon MD 2022 [address] [place] [address] Referring Physician Gynecology 01/26/20 Jorge Marr MD PhD 2022 [address] [facility] [address] [place] [address] Medical Oncologist Medical Oncology 05/03/20 04/04/21 Katherine Wall MD 2022 [address] [facility] [address] [place] [address] Radiation Oncologist Radiation Oncology 12/27/20 Faith Acevedo MD [address] [address] Surgeon Surgical Oncology 12/27/20 Russ Workman Jr., MD [address] [address] Medical Oncologist/Water Supply Engineer Medical Oncology 04/05/21 04/08/22 Lilian Lind NP [address] [place] [address] [id number] Nurse Practitioner Medical Oncology 04/09/22 Katherine Wall MD [address] [place] [address] Radiation Oncologist Radiation Oncology 11/19/23 documented as of this encounter
--- OUTSIDE RECORDS SUMMARY | 2024-12-01 14:21 | XMS_ITS | Clinical Summary ---
Author Organization [facility] Address [address] [place] [address] Care Team Providers Care Leadite Heater Name Role Phone Jessica Hardin MD Primary Care Provider [phone] Allergies Active Allergy Reactions Criticality Noted Date [...] 36.7 C (98.1 F) 04/18/2021 12:00 PM LIQUID CENTER ASSEMBLER Respiratory Rate 17 04/18/2021 12:00 PM LIQUID CENTER ASSEMBLER Oxygen Saturation 97% 04/18/2021 12:00 PM LIQUID CENTER ASSEMBLER Inhaled Oxygen Concentration - - Weight 95.7 [...] 2024 12/27/2020 Medical Devices Implanted Type Area Letter Carrier Device Identifier Shelf Expiration Date Model / Serial / Lot Duragen + 1x1in Dp-1011 - [id number] Implanted:Qty: 1 on 04/17/2021 by Yamil Harden MD at [facility] Graft N/A: Spine Lumbar [employer] 11/22/2023 [id number] / / [id number] Hemostatic Surgifoam Sz12-7 1971 - [id number] Implanted:Qty: 1 on 04/17/2021 by Yamil Harden MD at [facility] Hemostatic N/A: Spine Lumbar [employer] 09/06/2024 1972 / / [id number] Hemostatic Surgiflo 8ml W/ Thrombin 299 - [id number] Implanted:Qty: 1 on 04/17/2021 by Yamil Harden MD at On License [facility] Hemostatic N/A: Spine Lumbar [employer] 07/21/2022 [id number] / / [id number] Insurance [id number] [id number] [place] RX [employer] Express Advance Directives For more information, please contact: [phone] * Full Code (Latest Code Status on File) Date Activated Date Inactivated Comments 04/17/2021 1:53 PM 04/18/2021 7:46 PM Care Teams Leadite Heater Relationship Specialty Start Date End Date Jessica Hardin MD [address] [place] [address] PCP - General Family Practice 01/22/21
--- OUTSIDE RECORDS SUMMARY | 2024-12-01 14:21 | XMS_ITS | Clinical Summary ---
Author Organization [facility] Address [place] [address] Care Team Providers Care Cryptanalyst Name Role Phone Jessica Hardin MD Primary Care Provider [phone] Reshma Simon MD Unavailable [phone] Faith Acevedo MD Unavailable [phone] Lilian Lind NP Unavailable [phone] Katherine Wall MD Unavailable [phone] Allergies Active Allergy Reactions Criticality Noted Date Comments Cefaclor Unknown 06/28/2021 Ciprofloxacin Unknown 06/28/2021 Levonorgestrel-Ethinyl Estrad Cough Low 2021 Medications cyanocobalamin [...] mg total) by mouth daily 2 Active buPROPion SR (WELLBUTRIN SR) 150 [...] mg total) by mouth daily 4 Active metoprolol XL (TOPROL-XL) 25 mg [...] daily Active ergocalciferol (VITAMIN D) 50,000 unit capsuleIndicat ions:Vitamin D Deficiency Take 1 capsule (50,000 Units total) by mouth once a week 12 capsule 3 5 Active loratadine (CLARITIN) 10 mg tablet Take 1 tablet (10 mg total) by mouth daily 30 tablet 1 5 Active famotidine (PEPCID) 20 mg tablet Take 1 tablet (20 mg total) by mouth 2 (two) times a day 40 tablet 5 04/30/19 26 Active tamoxifen (NOLVADEX) 20 mg tabletIndicati ons:Malignant neoplasm of central portion of right breast in female, estrogen receptor positive (HCC),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 STOP FOR 2 WEEKS. REPEAT NEEDED. 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, estrogen receptor positive (HCC),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 (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) use of selective estrogen receptor modulators (serms) Take 1 tablet (20 mg total) by mouth daily 90 tablet 3 4 11/10/19 25 Discontin ued(Reord er) amoxicillin-cl avulanate (AUGMENTIN) 875-125 mg per tabletIndicati ons:Skin/Soft Tissue Infection Take 1 tablet (875 mg of amoxicillin total) by mouth 2 (two) times a day 20 tablet 5 11/17/19 25 Discontin ued(Thera py completed ) Active Problems Problem Noted Date Diagnosed Date [...] Encounters Date Type Department Care Team Description 11/16/2024 10:30 AM CDT Office Visit [facility] [address] [place] [address] [address] [place] [id number] Lilian Lind, BOBBY Malignant neoplasm of central portion of right breast in female, estrogen receptor positive (HCC) (Primary Dx); 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 (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) use of selective estrogen receptor modulators (serms); Rash; Vitamin D deficiency 11/16/2024 10:00 AM CDT Lab [facility] [address] [place] [address] Malignant neoplasm of central portion of right breast in female, estrogen receptor positive (HCC); Vitamin D deficiency 11/09/2024 Orders Only [facility] [address] [place] [address] [address] [place] [phone] Peggy West, NARGIS Malignant neoplasm of central portion of right breast in female, estrogen receptor positive (HCC) (Primary Dx); Vitamin B 12 deficiency; Vitamin D deficiency from Last 3 Months Immunizations Immunization Administration Dates Next Due Influenza, [...] on file 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 Gender Identity Not on file Sexual Orientation Not on file Obstetrics History Para Term AB IAB SAB Ectopic Multiple Livin g Live Births 3 2 2 Date Outcome GA Total Labor Labor/2nd/3rd Weight Sex Type Anes PTL Monika A1 A5 Name Clin Term Term Last Filed Vital Signs Vital Sign Reading Time Taken Comments Blood Pressure 132/83 11/16/2024 10:41 AM CDT Pulse 74 11/16/2024 10:41 AM CDT Temperature 36.7 C (98.1 F) 11/16/2024 10:41 AM CDT Respiratory Rate 18 11/16/2024 10:4 1 AM CDT Oxygen Saturation 100% 11/16/2024 10: 41 AM CDT Inhaled Oxygen Concentration - - Weight 95.4 kg (210 lb 5.1 oz) 11/17/19 10:41 AM CDT with shoes Height 160 cm (5' 3) 04/16/2024 3:10 PM PAPER REWINDER OPERATOR Body Mass Index 37.26 04/16/2024 3:10 PM PAPER REWINDER OPERATOR Plan of Treatment Health Maintenance Due Date Last Done Comments Cervical Cancer Screening 1971 Colon Cancer Screening-Colonoscopy 1971 Depression Screening 1971 Hepatitis C Screening 1971 Hepatitis B Screening 1989 Regular Well Visit/Exam 18-64 1989 Pneumococcal vaccine <65 (1 of 2 - PCV) 1990 Zoster Vaccine (1 of 2) 1990 DTaP/Tdap/Td Vaccine (6 - Tdap) 01/20/1992 01/19/1982, 12/30/1980, 06/05/1972, Additional history exists Covid-19 Vaccine (3 - Modern a risk series) 11/01/2020 10/04/2020, 09/06/2020 Influenza Vaccine (#1) 2024 12/27/2020 Breast Cancer Screening-Mammogram 03/25/2025 03/25/2024, 01/31/2023, 01/21/2022, Additional history exists Procedures Procedure Name Priority Date/Time Associated Diagnosis Comments EGFR Routine 11/16/2024 9:57 AM CDT Malignant neoplasm of central portion of right breast in female, estrogen receptor positive (HCC) DIFFERENTIAL AUTO Routine 11/16/2024 9:5 7 AM CDT Malignant neoplasm of central portion of right breast in female, estrogen receptor positive (HCC) COMPREHENSIVE METABOLIC PANEL Routine 11/16/2024 9:57 AM CDT Malignant neoplasm of central portion of right breast in female, estrogen receptor positive (HCC) CBC WITH AUTO DIFFERENTIAL Routine 11/16/2024 9:57 AM CDT Malignant neoplasm of central portion of right breast in female, estrogen receptor positive (HCC) VITAMIN D 25 HYDROXY Routine 11/16/2024 9:57 AM CDT Malignant neoplasm of central portion of right breast in female, estrogen receptor positive (HCC) Vitamin D deficiency SCREENING MAMMOGRAM BILATERAL W ALEXIS Schedule Routine, Read Routine (OP Routine) 03/25/2024 10:05 AM PAPER REWINDER OPERATOR Encounter for screening mammogram for breast cancer from Last 3 Months or Most Recently Relevant to Health Maintenance Results * eGFR (11/16/2024 9:57 AM CDT) eGFR 76 >=60 mL/min/1. 73 m2 Comment: Interpretive Data Reference Interval Normal >/= 90 mL/min/1.73m2 Mildly decreased* 60 - 89 mL/min/1.73m2 Mildly to moderately decreased 45 - 59 mL/min/1.73m2 Moderately to severely decreased 30 - 44 mL/min/1.73m2 Severely decreased 15 - 29 mL/min/1.73m2 Kidney Failure < 15 mL/min/1.73m2 *Relative to young adult level Estimated glomerular [...] was last reviewed 2021. Testing performed by: [address] [address] Blood 11/16/2024 9:57 AM CDT 11/16/2024 9:59 AM CDT Lilian Lind TRICHOLOGIST LAB BLOOD ORDERABLES Final Result [facility] [address] [facility] [place] [address] * Differential, auto (11/16/2024 9:57 AM CDT) Neutrophil abs 1.77 1.50 - 6.50 K/cumm Comment:Testing performed by : [address] [address] Imm gran abs 0.01 0.00 - 0.10 K/cumm LETTY Comment:Testing performed by : [address] [address] Lymphocyte abs 2.15 0.80 - 3.30 K/cumm LETTY Comment:Testing performed by : [address] [address] Monocyte abs 0.47 0.20 - 0.80 K/cumm LETTY Comment:Testing performed by : [address] [address] Eosinophil abs 0.34 0.00 - 0.50 K/cumm LETTY Comment:Testing performed by : [address] [address] Basophil abs 0.05 0.00 - 0.10 K/cumm LETTY Comment:Testing performed by : [address] [address] Neutrophil pct 37.0 % LETTY Comment: Interpretive Data Percent cell count reference ranges are not reported, since discordance with absolute values may lead to misinterpretation of CBC data. Current Interpretive Data was last revised on 2017. Testing performed by: [address] [address] Imm gran pct 0.2 % [facility] Comment: Interpretive Data Percent cell count reference ranges are not reported, since discordance with absolute values may lead to misinterpretation of CBC data. Current Interpretive Data was last revised on 2017. Testing performed by: [address] [address] Lymphocyte pct 44.9 % [facility] Comment: Interpretive Data Percent cell count reference ranges are not reported, since discordance with absolute values may lead to misinterpretation of CBC data. Current Interpretive Data was last revised on 2017. Testing performed by: [address] [address] Monocyte pct 9.8 % [facility] Comment: Interpretive Data Percent cell count reference ranges are not reported, since discordance with absolute values may lead to misinterpretation of CBC data. Current Interpretive Data was last revised on 2017. Testing performed by: [address] [address] Eosinophil pct 7.1 % [facility] Comment: Interpretive Data Percent cell count reference ranges are not reported, since discordance with absolute values may lead to misinterpretation of CBC data. Current Interpretive Data was last revised on 2017. Testing performed by: [address] [address] Basophil pct 1.0 % [facility] Comment: Interpretive Data Percent cell count reference ranges are not reported, since discordance with absolute values may lead to misinterpretation of CBC data. Current Interpretive Data was last revised on 2017. Testing performed by: [address] [address] Blood 11/16/2024 9:57 AM CDT 11/16/2024 9:59 AM CDT us Lilian Lind TRICHOLOGIST LAB BLOOD ORDERABLES Final Result [facility] [address] [facility] [place] [address] * CBC with auto differential (11/16/2024 9:57 AM CDT) [facility] WBC 4.79 3.80 - 9.90 K/cumm Comment:Testing performed by : [address] [address] Hgb 12.8 11.9 - 15.5 g/dL LETTY Comment:Testing performed by : [address], [address] Hct 38.6 35.6 - 45.5 % LETTY Comment:Testing performed by : [address], [address] Plt 201 150 - 400 K/cumm LETTY Comment:Testing performed by : [address], [address] MPV 10.6 9.1 - 12.3 fL LETTY Comment:Testing performed by : [address], [address] RBC 4.47 3.90 - 5.20 M/cumm LETTY Comment:Testing performed by : [address], [address] MCV 86.4 81.3 - 96.4 fL LETTY Comment:Testing performed by : [address], [address] MCH 28.6 27.1 - 33.3 pg LETTY Comment:Testing performed by : [address], [address] MCHC 33.2 32.3 - 35.7 g/dL LETTY Comment:Testing performed by : [address], [address] RDW CV 13.0 11.1 - 14.9 % LETTY Comment:Testing performed by : [address], [address] RDW SD 40.8 35.7 - 48.1 fL LETTY Comment:Testing performed by : [address], [address] NRBC abs 0.00 0.00 - 0.01 K/cumm LETTY DRISCOLL Comment:Testing performed by : [address] [address] ANC Prelim 1.77 1.50 - 6.50 K/cumm LETTY DRISCOLL Comment: Interpretive Data The rapid ANC is a preliminary automated count and may vary from the final ANC (Neut Abs) reported in the WBC differential that follows. Current interpretive data was last revised 2024. Testing performed by: [address] [address] Blood 11/16/2024 9:57 AM CDT 11/16/2024 9:59 AM CDT Lilian Lind NP LAB BLOOD ORDERABLES Final Result Performing Organization Address [facility] Co de Phone Number [address] [place] [address] * Vitamin D 25 hydroxy (11/16/2024 9:57 AM CDT) Vitamin D 25-OH 37.0 30.0 - 80.0 ng/mL Blood 11/16/2024 9:57 AM CDT 11/16/2024 12:23 PM CDT Lilian Lind NP LAB BLOOD ORDERABLES Final Result Performing Organization Address [facility] Co de Phone Number [address] [place] [address] * Comprehensive metabolic panel (11/16/2024 9:57 AM CDT) Sodium 140 135 - 145 mmol/L Comment:Testing performed by : [address] [address] Potassium, pl 3.4 3.3 - 4.9 mmol/L LETTY DRISCOLL Comment:Testing performed by : [address] [address] Chloride 100 97 - 110 mmol/L LETTY DRISCOLL Comment:Testing performed by : [address] [address] CO2 27 22 - 32 mmol/L LETTY Comment:Testing performed by : [address] [address] Anion gap 13 2 - 15 mmol/L LETTY Comment:Testing performed by : [address], [place]., [address] BUN 12 6 - 25 mg/dL [facility] Comment:Testing performed by : [address], [place]., [address] Creatinine 0.90 0.60 - 1.10 mg/dL [facility] Comment:Testing performed by : [address] [address] Glucose 114 70 - 199 mg/dL [facility] Comment: Interpretive Data Fasting glucose >/= 126 mg/dl is diagnostic for diabetes. Fasting is defined as no caloric intake [...] was last revised 2022. Testing performed by: [address] [address] Calcium 9.5 8.5 - 10.3 mg/dL LETTY Comment:Testing performed by : [address] [address] Bilirubin, total 0.3 0.1 - 1.2 mg/dL [facility] Comment:Testing performed by : [address] [address] Protein, pl 7.2 6.5 - 8.5 g/dL LETTY Comment:Testing performed by : [address] [address] Albumin 4.4 3.5 - 5.0 g/dL LETTY Comment:Testing performed by : [address] [address] Alk phos 47 40 - 130 Units/L LETTY DRISCOLL Comment:Testing performed by : [facility], [address] [place] [address]., [address] ALT 17 7 - 45 Units/L LETTY DRISCOLL Comment:Testing performed by : [facility], [address] [place] [address]., [address] AST 18 10 - 45 Units/L LETTY Comment:Testing performed by : [address] [address] Blood 11/16/2024 9:57 AM CDT 11/16/2024 9:59 AM CDT us Lilian Lind NP LAB BLOOD ORDERABLES Final Result [facility] [address] [facility] Department [place] [address] * Screening Mammogram Bilateral W Alexis (03/25/2024 10:05 AM PAPER REWINDER OPERATOR) Anatomical Region Laterality Modality Breast Bilateral Mammography Impressions 03/25/2024 10:24 AM PAPER REWINDER OPERATOR BI-RADS ATLAS category (overall): 2 - Benign There is no mammographic evidence of malignancy. A 1 year screening mammogram is recommended. The patient has been or will be contacted. We recommend annual screening mammography for women at average risk of breast cancer beginning at age 40, based on guidelines of the [employer] (ACR Practice Parameter for the Performance of Screening and Diagnostic Mammography) and [employer]. For women with and elevated risk of breast cancer, please refer to the ACR Practice Parameter for specific screening recommendations. The patient will be entered into a reminder system with a target due date of 1 year for her next screening exam. Narrative 03/25/2024 10:24 AM PAPER REWINDER OPERATOR Screening Mammogram Bilateral W Alexis: 03/25/24 The [...] either breast on mammogram. Lilian Lind NP IM MAMMO PROCEDURES Final Result from Last 3 Months or Most Recently Relevant to Health Maintenance Insurance [facility] CHOICE PLUS IDPA [facility] Care Teams Cryptanalyst Relationship Specialty Start Date End Date Jessica Hardin MD PCP - General Family Medicine 01/26/20 Reshma Simon MD [address] [address] Referring Physician Gynecology 01/26/20 Faith Acevedo MD [address] [place] [address] Surgeon Surgical Oncology 12/27/20 Lilian Lind NP [address] [place] [address] Nurse Practitioner Medical Oncology 04/09/22 Katherine Wall MD [address] [place] [address] Radiation Oncologist Radiation Oncology 11/19/23
--- OUTSIDE RECORDS SUMMARY | 2024-12-01 14:21 | XMS_ITS ---
Author Organization [facility] Address [facility] [place] [address] Care Team Providers Care Slide Attendant Name Role Phone Jessica Hardin MD Primary Care Provider [phone] Reshma Simon MD Unavailable [phone] Faith Acevedo MD Unavailable [phone] Lilian Lind NP Unavailable [phone] Katherine Wall MD Unavailable [phone] Active Problems Problem Noted Date Diagnosed Date [...]
--- OUTSIDE RECORDS SUMMARY | 2024-12-01 14:21 | XMS_ITS | Clinical Summary ---
Author Organization [facility] Address [address] [facility] [place] [address] Care Team Providers Care School Bus Driver/Custodian Name Role Phone Jessica Hardin MD Primary Care Provider Source Comments [facility],non-owned Affiliates and Associated Physician Practices is amultiple site organization consisting of ambulatory clinics and hospital sitesin [place], [place], [place] and [place]. This disclosure is being madepursuant to the Care Everywhere program and may not contain all information available regarding this patient. 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
--- NOTE | 2024-12-01 14:32 | REHSTMBS ---
Assessment and note entered by Katherine Leslie, COMMUNITY RECREATION COORDINATOR Modified Barium Swallow Evaluation Feeding Type Recommended Oral Food Consistency Regular, Level 7 Liquid Consistency Thin (0) ST Clinical Summary The patient is a 54 year old female referred for a Modified Barium Swallow Study due to a history of a sticking sensation in her throat with hard solids and pills over the past few months. The patient was positioned in a lateral view and presented the following consistencies: 5cc/tsp thin liquid barium, thin liquid barium via straw, pudding mixed with barium paste, and cracker coated with barium paste. Oral Stage: Timely oral preparation and transit for all consistencies. Pharyngeal Stage: Timely swallow initiation was viewed across consistencies with no viewed aspiration or penetration. In addition, no residual was viewed to remain in the valleculae or pyriform sinus following swallow initiation for all consistencies. Results were reviewed with the patient. Recommend 1. Regular Diet and 2 Thin liquid. Thank you for the consult.
== END 2024-12-01 13:42 | disposition home or self-care (01) ==
PROVIDERS: PCP Family Medicine; Visit Provider Otolaryngology
DX: R13.10 Dysphagia, unspecified (principal)
CPT/HCPCS: 74230; 92611

== ENCOUNTER 2024-12-15 15:06 | Outpatient (CLI) | payer OTHER, SELFPAY ==
--- NOTE | ~2024-12-15 | MR_ITS ---
EXAMINATION: MR lumbar spine wo gerri, 12/15/2024 15:00 CDT HISTORY: M54.16 - Radiculopathy, lumbar region COMPARISON: Comparison 01/09/2023 TECHNIQUE: Multi-planar multi-sequence images were obtained of the lumbar spine without contrast per protocol. FINDINGS: Grade 1 anterolisthesis L4 on L5, no fracture. The vertebral heights are intact. Marrow signal appropriate. Posterior alignment intact. There is no abnormal signal within the posterior elements. The conus terminates at T12-L1. No abnormal signal in the cord Moderate loss of disc height at L4-5 and L5-S1 with mild to moderate disc desiccation and minimal endplate degenerative changes Soft tissues unremarkable L5-S1: Circumferential bulging of the disc with ligamentum flavum and facet hypertrophy. Moderate bilateral foramina and lateral recess stenosis, mild canal stenosis. L4-5: Circumferential bulging of the disc with ligamentum flavum and facet hypertrophy. Severe bilateral foramina, lateral recess and moderate to severe canal stenosis. Postsurgical changes noted at this level. L3-4: Circumferential bulging of the disc with ligamentum flavum and facet hypertrophy. Moderate bilateral foramina and lateral recess stenosis, no canal stenosis. L2-L3: No canal or foraminal stenosis L1-L2: No canal or foraminal stenosis. IMPRESSION: Degenerative changes detailed above Reviewed, dictated and finalized at location A.
--- OUTSIDE RECORDS SUMMARY | 2024-12-15 15:12 | XMS_ITS | Clinical Summary ---
Author Organization [facility] Address [address] [place] [address] Care Team Providers Care Chlorine Plant Operator Name Role Phone Jessica Hardin MD Primary Care Provider [phone] Allergies Active Allergy Reactions Criticality Noted Date [...] 36.7 C (98.1 F) 04/18/2021 12:00 PM RACE RELATIONS PROFESSOR Respiratory Rate 17 04/18/2021 12:00 PM RACE RELATIONS PROFESSOR Oxygen Saturation 97% 04/18/2021 12:00 PM RACE RELATIONS PROFESSOR Inhaled Oxygen Concentration - - Weight 95.7 [...] 2024 12/27/2020 Medical Devices Implanted Type Area Armament Installer Device Identifier Shelf Expiration Date Model / Serial / Lot Duragen + 1x1in Dp-1011 - [id number] Implanted:Qty: 1 on 04/17/2021 by [facility] Graft N/A: Spine Lumbar [employer] 11/22/2023 [id number] / / [id number] Hemostatic Surgifoam Sz12-7 1971 - [id number] Implanted:Qty: 1 on 04/17/2021 by [facility]il H[facility] at [facility] Hemostatic N/A: Spine Lumbar [employer]- [employer] 09/06/2024 1972 / / [id number] Hemostatic Surgiflo 8ml W/ Thrombin 299 - [id number] Implanted:Qty: 1 on 04/17/2021 by [facility]il H[facility] Hemostatic N/A: Spine Lumbar [employer]- [employer] 07/21/2022 [id number] / / [id number] Insurance [id number] [place] [id number] [place] [employer] Express Advance Directives For more information, please contact: [phone] * Full Code (Latest Code Status on File) Date Activated Date Inactivated Comments 04/17/2021 1:53 PM 04/18/2021 7:46 PM Care Teams Chlorine Plant Operator Relationship Specialty Start Date End Date Jessica Hardin MD [address] [place] [address] PCP - General Family Practice 01/22/21
--- OUTSIDE RECORDS SUMMARY | 2024-12-15 15:12 | XMS_ITS | Clinical Summary ---
Author Organization [facility] Address [facility] [place] [address] Care Team Providers Care Territory Manager General Sales Name Role Phone Jessica Hardin MD Primary Care Provider [phone] Reshma Simon MD Unavailable [phone] Faith Acevedo MD Unavailable [phone] Lilian Lind NP Unavailable [phone]- [phone] Katherine Wall MD Unavailable [phone] Allergies Active Allergy Reactions Criticality Noted Date [...] left breast in female, estrogen receptor positive (HCC),retirement (current) use of selective estrogen receptor modulators [...] 2 11/17/19 25 Discontin ued(Alter ras therapy) amoxicillin-cl avulanate (AUGMENTIN) 875-125 mg per tabletIndicati [...] Description 11/16/2024 10:30 AM CDT Office Visit [facility] [address] [place] [address] [address] [place] [address] Lilian Lind NP Malignant neoplasm of central portion of right breast in female, estrogen receptor positive (HCC) (Primary Dx); 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); Rash; Vitamin D deficiency 11/16/2024 10:00 AM CDT Lab [facility] at [address] [address] Malignant neoplasm of central portion of right breast in female, estrogen receptor positive (HCC); Vitamin D deficiency 11/09/2024 Orders Only [facility] [address] [facility] [address] [place] [id number] Peggy West, RN Malignant neoplasm of central portion of right [...] on file Legal Sex Female 12:44 AM FINISHING SUPERVISOR Gender Identity Not on file Sexual Orientation Not on file Obstetrics History Para Term AB IAB SAB Ectopic Multiple Livin g Live Births 3 2 2 Date Outcome GA Total Labor Labor//3rd Weight Sex Type Anes PTL Monika A1 [...] 95.4 kg (210 lb 5.1 oz) 11/17/19 25 10:41 AM CDT with shoes Height 160 cm (5' 3) 04/16/2024 3:10 PM FINISHING SUPERVISOR Body Mass Index 37.26 04/16/2024 3:10 PM FINISHING SUPERVISOR Plan of Treatment Health Maintenance Due Date [...] Read Routine (OP Routine) 03/25/2024 10:05 AM FINISHING SUPERVISOR Encounter for screening mammogram for breast cancer [...] was last reviewed 2021. Testing performed by: [facility], [address] [place] [address], [place]., [address] Blood 11/16/2024 9:57 AM CDT 11/16/2024 9:59 AM CDT us Lilian Lind ROUTE INSPECTOR LAB BLOOD ORDERABLES Final Result LETTY [address] [facility] Department [place] [address] * Differential, auto (11/16/2024 9:57 AM CDT) Neutrophil abs 1.77 1.50 - 6.50 K/cumm Comment:Testing performed by : [address] [address] Imm gran abs 0.01 0.00 - 0.10 K/cumm LETTY Comment:Testing performed by : [address] [address] Lymphocyte abs 2.15 0.80 - 3.30 K/cumm LETTY Comment:Testing performed by : [address] [address] Monocyte abs 0.47 0.20 - 0.80 K/cumm LETTY Comment:Testing performed by : [address] [address] Eosinophil abs 0.34 0.00 - 0.50 K/cumm LETTY Comment:Testing performed by : [address] [address] Basophil abs 0.05 0.00 - 0.10 K/cumm LETTY Comment:Testing performed by : [address] [address] Neutrophil pct 37.0 % LETTY Comment: Interpretive Data Percent cell count reference ranges are not reported, since discordance with absolute values may lead to misinterpretation of CBC data. Current Interpretive Data was last revised on 2017. Testing performed by: [address] [address] Imm gran pct 0.2 % LETTY Comment: Interpretive Data Percent cell count reference ranges are not reported, since discordance with absolute values may lead to misinterpretation of CBC data. Current Interpretive Data was last revised on 2017. Testing performed by: [address] [address] Lymphocyte pct 44.9 % LETTY Comment: Interpretive Data Percent cell count reference ranges are not reported, since discordance with absolute values may lead to misinterpretation of CBC data. Current Interpretive Data was last revised on 2017. Testing performed by: [address] [address] Monocyte pct 9.8 % LETTY Comment: Interpretive Data Percent cell count reference ranges are not reported, since discordance with absolute values may lead to misinterpretation of CBC data. Current Interpretive Data was last revised on 2017. Testing performed by: [address] [address] Eosinophil pct 7.1 % LETTY Comment: Interpretive Data Percent cell count reference ranges are not reported, since discordance with absolute values may lead to misinterpretation of CBC data. Current Interpretive Data was last revised on 2017. Testing performed by: [address] [address] Basophil pct 1.0 % LETTY Comment: Interpretive Data Percent cell count reference ranges are not reported, since discordance with absolute values may lead to misinterpretation of CBC data. Current Interpretive Data was last revised on 2017. Testing performed by: [address] [address] Blood 11/16/2024 9:57 AM CDT 11/16/2024 9:59 AM CDT Lilian Lind ROUTE INSPECTOR LAB BLOOD ORDERABLES Final Result LETTY 34[address] [facility] Department [place] [address] * CBC with auto differential (11/16/2024 9:57 AM CDT) WBC 4.79 3.80 - 9.90 K/cumm Comment:Testing performed by : [address] [address] Hgb 12.8 11.9 - 15.5 g/dL LETTY Comment:Testing performed by : [address], [address] Hct 38.6 35.6 - 45.5 % LETTY Comment:Testing performed by : [address] [address] Plt 201 150 - 400 K/cumm LETTY Comment:Testing performed by : [address] [address] MPV 10.6 9.1 - 12.3 fL LETTY Comment:Testing performed by : [address], [address] RBC 4.47 3.90 - 5.20 M/cumm LETTY Comment:Testing performed by : [address], [address] MCV 86.4 81.3 - 96.4 fL LETTY Comment:Testing performed by : [address], [address] MCH 28.6 27.1 - 33.3 pg LETTY Comment:Testing performed by : [address], [address] MCHC 33.2 32.3 - 35.7 g/dL LETTY Comment:Testing performed by : [address], [address] RDW CV 13.0 11.1 - 14.9 % LETTY Comment:Testing performed by : [address], [address] RDW SD 40.8 35.7 - 48.1 fL LETTY Comment:Testing performed by : [address], [address] NRBC abs 0.00 0.00 - 0.01 K/cumm LETTY Comment:Testing performed by : [address], [address] ANC Prelim 1.77 1.50 - 6.50 K/cumm LETTY Comment: Interpretive Data The rapid ANC is a preliminary automated count and may vary from the final ANC (Neut Abs) reported in the WBC differential that follows. Current interpretive data was last revised 2024. Testing performed by: [address] [address] Blood 11/16/2024 9:57 AM CDT 11/16/2024 9:59 AM CDT Lilian Lind ROUTE INSPECTOR LAB BLOOD ORDERABLES Final Result Performing Organization Address City/[facility]/ZIP Co de Phone Number [address] [place] [address] * Vitamin D 25 hydroxy (11/16/2024 9:57 AM CDT) Pathologist [facility] Vitamin D 25-OH 37.0 30.0 - 80.0 ng/mL Blood 11/16/2024 9:57 AM CDT 11/16/2024 12:23 PM CDT Lilian Lind ROUTE INSPECTOR LAB BLOOD ORDERABLES Final Result Performing Organization Address City/[facility] Co de Phone Number [address] [address] * Comprehensive metabolic panel (11/16/2024 9:57 AM CDT) [facility] Sodium 140 135 - 145 mmol/L Comment:Testing performed by : [address] [address] Potassium, pl 3.4 3.3 - 4.9 mmol/L LETTY Comment:Testing performed by : [address] [address] Chloride 100 97 - 110 mmol/L LETTY Comment:Testing performed by : [address] [address] CO2 27 22 - 32 mmol/L LETTY Comment:Testing performed by : [address] [address] Anion gap 13 2 - 15 mmol/L LETTY Comment:Testing performed by : [address] [address] BUN 12 6 - 25 mg/dL LETTY Comment:Testing performed by : [address] [address] Creatinine 0.90 0.60 - 1.10 mg/dL LETTY Comment:Testing performed by : [address] [address] Glucose 114 70 - 199 mg/dL LETTY Comment: Interpretive [...] was last revised 2022. Testing performed by: [address] [address] Calcium 9.5 8.5 - 10.3 mg/dL LETTY Comment:Testing performed by : [address] [address] Bilirubin, total 0.3 0.1 - 1.2 mg/dL LETTY Comment:Testing performed by : [address] [address] Protein, pl 7.2 6.5 - 8.5 g/dL LETTY Comment:Testing performed by : [address] [address] Albumin 4.4 3.5 - 5.0 g/dL LETTY Comment:Testing performed by : [address] [address] Alk phos 47 40 - 130 Units/L LETTY Comment:Testing performed by : [address] [address] ALT 17 7 - 45 Units/L LETTY Comment:Testing performed by : [address] [address] AST 18 10 - 45 Units/L LETTY Comment:Testing performed by : [address] [address] Blood 11/16/2024 9:57 AM CDT 11/16/2024 9:59 AM CDT Lilian Lind NP LAB BLOOD ORDERABLES Final Result LETTY [address] [facility] Department [place] [address] * Screening Mammogram Bilateral W Keith (03/25/2024 10:05 AM FINISHING SUPERVISOR) Anatomical Region Laterality Modality Breast Bilateral Mammography Impressions 03/25/2024 10:24 AM FINISHING SUPERVISOR BI-RADS ATLAS category (overall): 2 - Benign There is no mammographic evidence of malignancy. A 1 year screening mammogram is recommended. The patient has been or will be contacted. We recommend annual screening mammography for women at average risk of breast cancer beginning at age 40, based on guidelines of the [place] [employer] (ACR Practice Parameter for the Performance of Screening and Diagnostic Mammography) and [place] [employer] and [employer]nec[employer]. For women with and elevated risk of breast cancer, please refer to the ACR Practice Parameter for specific screening recommendations. The patient will be entered into a reminder system with a target due date of 1 year for her next screening exam. Narrative 03/25/2024 10:24 AM FINISHING SUPERVISOR Screening Mammogram Bilateral W Keith: 03/25/24 The [...] Relevant to Health Maintenance Insurance [facility] CHOICE PLUS IDPA [facility] Care Teams Territory Manager General Sales Relationship Specialty Start Date End Date Jessica Hardin MD PCP - General Family Medicine 01/26/20 Reshma Simon MD [address] [address] Referring Physician Gynecology 01/26/20 Faith Acevedo MD [address] [address] Surgeon Surgical Oncology 12/27/20 Lilian Lind NP [address] [place] [address] Nurse Practitioner Medical Oncology 04/09/22 Katherine Wall MD [address] [place] [address] [address] [place] [address] Radiation Oncologist Radiation Oncology 11/19/23
--- OUTSIDE RECORDS SUMMARY | 2024-12-15 15:12 | XMS_ITS | Encounter Summary ---
Author Organization [facility] Address [address] [place] [address] Care Team Providers Care Tennis Coach Name Role Phone Jessica Hardin MD Primary Care Provider [phone] Reshma iSmon MD Unavailable [phone] Katherine Wall MD Unavailable [phone] Faith Acevedo MD Unavailable [phone] Ji Bean MD, Russ Unavailable + [phone] Lilian Lind NP Unavailable + [phone] Katherine Wall MD Unavailable [phone] Encounter Details Date Type Department Care Team (Late st Contact Info) Description 07/06/2021 Documentation [facility] OP Physical Therapy [address] [id number] Cristobal Packer, PT Social History Tobacco Use Types Packs/Day Years Used Date Smoking Tobacco: Never Smokeless Tobacco: Never Alcohol Use Standard Drinks/Week Comments Yes 1 (1 standard drink = 0.6 oz pur e alcohol) Comments No Sex and Gender Information Value Date Recorded Sex Assigned at Not on file Legal Sex Female 12:44 AM FIRE CHIEF DEPUTY Gender Identity Not on file Sexual Orientation Not on file documented as of this encounter Plan of Treatment Not on file documented as of this encounter Visit Diagnoses Not on filedocumented in this encounter Care Teams Tennis Coach Relationship Specialty Start Date End Date Jessica Hardin MD PCP - General Family Medicine 01/26/20 Reshma Simon MD 2022 [facility] [address] [place], [place] [id number] Referring Physician Gynecology 01/26/20 Katherine Wall MD 2022 [facility] [address] [place] [address] Radiation Oncologist Radiation Oncology 12/27/20 Faith Acevedo MD 4921 [facility] [address] [place] [address] Surgeon Surgical Oncology 12/27/20 Russ Workman Jr., MD 4921 [facility] [address] [place] [address] Medical Oncologist/Chemical Recovery Operator Medical Oncology 04/05/21 04/08/22 Lilian Lind NP 1418 [facility] [address] [place], [place] [address] Nurse Practitioner Medical Oncology 04/09/22 Katherine Wall MD 1418 [facility] [address] [place], [place] [address] Radiation Oncologist Radiation Oncology 11/19/23 documented as of this encounter
--- OUTSIDE RECORDS SUMMARY | 2024-12-15 15:12 | XMS_ITS | Clinical Summary ---
Author Organization [email or web address] Address [address] [place] [address] Care Team Providers Care Railroad Brake Operator Name Role Phone Jessica Hardin MD Primary Care Provider [phone] Source Comments [email or web address],non-owned Affiliates and Associated Physician Practices is amultiple site organization consisting of ambulatory clinics and hospital sitesin [place], [place], [place] and [place]. This disclosure is being madepursuant to the Care Everywhere program and may not contain all information available regarding this patient. Last updated 17.[email or web address] Allergies Active Allergy Reactions Criticality Noted Date [...] Active vitamin D, ergocalciferol, (Drisdol) 1.25 MG (24780 UT) capsule Take 1 (one) capsule by [...] on file Legal Sex Female 11:32 AM DISPENSER OPERATOR Gender Identity Not on file Sexual [...] st Contact Info) Description 02/23/2025 9:50 AM DISPENSER OPERATOR Office Visit [facility] - BALLING MACHINE OPERATOR [address], [place] [address] [place] [address] Sterling Griffiths Che, MD [address] [place] [address] Health Maintenance Due Date Last [...] 2021 ZOSTER VACCINE (1 of 2) 2021 SCREENING FOR DIABETES 02/10/2024 COVID-19 VACCINE (3 - season) 2024 10/04/2020, 09/06/2020 INFLUENZA VACCINE (#1) 2024 12/27/2020 MAMMOGRAM 03/25/2026 [...] patient's age to complete this topic [place] [address] [address] Care Teams Railroad Brake Operator Relationship Specialty Start Date End Date Jessica Hardin MD [address] [place] [address] PCP - General Family Medicine 02/10/24
--- OUTSIDE RECORDS SUMMARY | 2024-12-15 15:12 | XMS_ITS ---
Author Organization [facility] Address [facility] [place] [address] Care Team Providers Care Curriculum Specialist Name Role Phone Jessica Hardin MD Primary Care Provider [phone] Reshma Simon MD Unavailable [phone] Faith Acevedo MD Unavailable [phone] Lilian Lind NP Unavailable [phone] Katherine Wall MD Unavailable [phone] Active Problems Problem Noted Date Diagnosed Date [...]
--- OUTSIDE RECORDS SUMMARY | 2024-12-15 15:12 | XMS_ITS | Encounter Summary ---
Author Organization [facility] Care Team Providers Care Facilities Maintenance Assistant Name Role Phone Reshma Simon MD Primary Care Provider + Jessica Hardin MD Primary Care Provider [phone] Reshma Simon MD Unavailable [phone] Jorge Marr MD PhD Unavailable [phone] Katherine Wall MD Unavailable [phone] Faith Acevedo MD Unavailable [phone] Ji Bean MD, [facility] Unavailable + [phone] Lilian Lind HOME ECONOMIST CONSUMER SERVICE Unavailable [phone] Katherine Wall MD Unavailable [phone] Encounter Details Date Type Department Care Team (Latest Contact Info) Description 07/04/2015 Orders Only [facility] ProviderCisco MD [address] [place] [address] Social History Tobacco Use Types Packs/Day Years Used Date Smoking Tobacco: Never Assessed Alcohol Use Standard Drinks/Week Comments Yes 0 (1 standard drink = 0.6 oz pur e alcohol) Comments Unknown Sex and Gender Information Value Date Recorded Sex Assigned at Not on file Legal Sex Female 12:44 AM 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 [facility] Provider CV CARDIAC SERVICES PROCE DURES Final Result * CARDIOLOGY REPORT (08/09/2015 12:00 AM CDT) Anatomical Region Laterality Modality Other Narrative 08/09/2015 12:00 AM CDT Ordered by an unspecified provider. [facility] Provider CV CARDIAC SERVICES PROCE DURES Final Result documented in this encounter Visit Diagnoses Not on filedocumented in this encounter Care Teams Facilities Maintenance Assistant Relationship Specialty Start Date End Date Reshma Simon MD [address] [facility] [address] [place] [address] PCP - General 04/26/13 01/25/20 Jessica Hardin MD [address] [facility] [address] [place] [address] PCP - General Family Medicine 01/26/20 Reshma Simon MD 2022 [facility] [address] [place] [address] Referring Physician Gynecology 01/26/20 Jorge Marr MD PhD [address] [facility] [address] [place] [address] Medical Oncologist Medical Oncology 05/03/20 04/04/21 Katherine Wall MD [address]22 [facility] [address] [place] [address] Radiation Oncologist Radiation Oncology 12/27/20 Faith Acevedo MD [address] [address] Surgeon Surgical Oncology 12/27/20 Russ Workman Jr., MD [address] [address] Medical Oncologist/Auto Body Technician Medical Oncology 04/05/21 04/08/22 Lilian Lind NP [address] [place] [address] Nurse Practitioner Medical Oncology 04/09/22 Katherine Wall MD [address] [place] [address] Radiation Oncologist Radiation Oncology 11/19/23 documented as of this encounter
== END 2024-12-15 15:07 | disposition home or self-care (01) ==
PROVIDERS: PCP Family Medicine; Visit Provider Family Medicine
DX: M54.16 Radiculopathy, lumbar region (principal); M47.816 Spondylosis without myelopathy or radiculopathy, lumbar region; M47.817 Spondylosis without myelopathy or radiculopathy, lumbosacral region
CPT/HCPCS: 72148

== ENCOUNTER 2024-12-30 10:00 | Outpatient (RCR) | payer OTHER, SELFPAY ==
--- NOTE | 2024-11-18 11:52 | OPREHPOC ---
Outpatient Therapy Plan of Care This is a Multidisciplinary Plan of Care that may contain components documented by all disciplines (PT, OT, and ST.) PT Problem 1 PT Problem #1 Knowledge Deficit PT Goal 1 Goal / Goal Update *independent with HEP--land and water 09-03-24 progress met goal continue to progress education 10-25-24 progress goal met continue to progress education Target Visit 21 PT Problem 2 PT Problem #2 Pain PT Goal 1 Goal / Goal Update 1* pt report pain at worst of 6/10 in back 2* radicular pain R LE to mid calf at worst 3* radicular pain L LE to mid calf at worst 09-03-24 progress goals not met continue towards goals 10-25-24 progress goals not met; pain at 10/10; radicular R to toes and L to knee continue towards Target Visit 21 PT Problem 3 PT Problem #3 Impaired Strength PT Goal 1 Goal / Goal Update 1* increase trunk and hip strength to 4+/5 2* single leg standing R 10 seconds 3* single leg standing L 10 seconds 09-03-24 progress met goals 2,3 continue towards goal 1 10-25-24 progress goal 2,3 met continue towards goal 1 Target Visit 21 PT Problem 4 PT Problem #4 Impaired Functional Mobility PT Goal 1 Goal / Goal Update * 2 minute walking test distance of 375' 09-03-24 progress met goal Target Visit 10 Progress Met PT Goal 2 Goal / Goal Update NEW GOAL: * 2 minute walking test distance of 450' 10-25-24 progress goal not met 375' continue towards Target Visit 21 PT Problem 5 PT Problem #5 Impaired Flexibility PT Goal 1 Goal / Goal Update * increase R anterior hip/quad length with prone knee flexion to 110' 09-03-24 progress met goal 10-25-24 progress NEW goal: anterior hip/quad length with prone knee flexion 1* R 125' 2* L 130' Target Visit [address] Problem 1 ST Problem #[address] Goal 1 Goal / Goal Update The patient will participate in home programming to improve carry over/generalization of skills to the home environment. Target Visit [address] Problem #[address] Goal 1 Goal / Goal Update Voice: 1. The patient will complete a HEP with 90% compliance. 2. The patient will be provided information on techniques to improve vocal hygiene and care. 3. The patient will engage in exercises to promote optimal pitch and release any laryngeal tension 90% 4. The patient will improve self-monitoring of vocal quality in regard to maintaining phonation, reducing laryngeal tension, and optimal voice for sustained voicing in conversational speech 85% of time. Target Visit 10
--- NOTE | 2024-11-18 11:53 | STOPEVAL1 ---
Assessment and note entered by Katherine Leslie, CNC FIELD SERVICE ENGINEER Evaluation Information Assessment Status Evaluation Diagnosis R49.9 R13.10 Subjective Information The domingo is a 54 year old female referred by her ENT for a outpatient speech consult due to persistent voice disturbances and dysphagia one year post surgery. Her endoscopy revealed a slight glottic gap, functional bilateral vocal cord movement, with slight abnormal movement of the right vocal cord. The patient reports prior neck surgery involving C2 through C7. She stated the dysphagia and voice concerns have been present since her neck surgery. She reports difficulty with primarily solids or doughy textures when swallowing but states the sticking sensation can be present even in the absence of swallowing food. Her ENT placed her on Famotidine for a one month trial. Per her reports she did not notice a difference. She has a script for an MBS study but it has not been scheduled yet. Reported Pain Level Pain Score 0: Self Report Pain Score 5: Self Report Assessment ST Clinical Summary The domingo is a 54 year old female referred by her ENT for a outpatient speech consult due to persistent voice disturbances and dysphagia one year post surgery. Her endoscopy revealed a slight glottic gap, functional bilateral vocal cord movement, with slight abnormal movement of the right vocal cord. The patient reports prior neck surgery involving C2 through C7. She stated the dysphagia and voice concerns have been present since her neck surgery. She reports difficulty with primarily solids or doughy textures when swallowing but states the sticking sensation can be present even in the absence of swallowing food. Her ENT placed her on Famotidine for a one month trial. Per her reports she did not notice a difference. She has a script for an MBS study but it has not been scheduled yet. The patient was administered the [facility] Voice Evaluation. Results: Mild deficits characterized by the following. The patient shows breaks in pitch when attempting to sustain the vowel /e/ or in prolonged phonation for speech production most likely secondary to the slight glottic insufficiency. Resulting overtime in a more hoarse vocal quality. The therapist also noted frequent throat clearing during the course of the evaluation which maybe leading to inflammation impacting voicing. The patient has an order for a MBS Study to r/o aspiration CNC FIELD SERVICE ENGINEER assisting in scheduling MBS. ENT has initiated medication for possible reflux as a contributing factor. Speech services recommended 1x a week for 10 visits to address 1. Dysphagia as indicated following MBS Study 2. Voice Therapy to address pitch variation and voice fatigue. Plan of Care Interventions Treatment of Voice ST Services Indicated Yes These treatments will address the objective and functional deficits as defined above. The patient will be advanced safely and appropriately in order for the patient to progress towards his/her prior level of function. Additional exercises will be introduced and as well as a comprehensive home exercise program upon discharge, if needed, ?to ensure carryover of functional gains achieved in the clinic. This treatment plan has been reviewed and agreement upon by the patient.
--- NOTE | 2024-11-25 10:46 | OPREHPOC ---
Outpatient Therapy Plan of Care This is a Multidisciplinary Plan of Care that may contain components documented by all disciplines (PT, OT, and ST.) PT Problem 1 PT Problem #1 Knowledge Deficit PT Goal 1 Goal / Goal Update *independent with HEP--land and water 09-03-24 progress met goal continue to progress education 10-25-24 progress goal met continue to progress education 11-25-24 d/c goal met Target Visit 21 Progress Met PT Problem 2 PT Problem #2 Pain PT Goal 1 Goal / Goal Update 1* pt report pain at worst of 6/10 in back 2* radicular pain R LE to mid calf at worst 3* radicular pain L LE to mid calf at worst 09-03-24 progress goals not met continue towards goals 10-25-24 progress goals not met; pain at 10/10; radicular R to toes and L to knee continue towards 11-25-24 d/c goals not met; pain to 9/10 and into both legs to toes Target Visit 21 Progress Not Met PT Problem 3 PT Problem #3 Impaired Strength PT Goal 1 Goal / Goal Update 1* increase trunk and hip strength to 4+/5 2* single leg standing R 10 seconds 3* single leg standing L 10 seconds 09-03-24 progress met goals 2,3 continue towards goal 1 10-25-24 progress goal 2,3 met continue towards goal 1 11-25-24 d/c goals 2,3 met Target Visit 21 Progress Partially Met PT Problem 4 PT Problem #4 Impaired Functional Mobility PT Goal 1 Goal / Goal Update * 2 minute walking test distance of 375' 09-03-24 progress met goal Target Visit 10 Progress Met PT Goal 2 Goal / Goal Update NEW GOAL: * 2 minute walking test distance of 450' 10-25-24 progress goal not met 375' 11-25-24 d/c goal not met but improved to 425' continue towards Target Visit 21 Progress Not Met PT Problem 5 PT Problem #5 Impaired Flexibility PT Goal 1 Goal / Goal Update * increase R anterior hip/quad length with prone knee flexion to 110' 09-03-24 progress met goal 10-25-24 progress NEW goal: anterior hip/quad length with prone knee flexion 1* R 125' 2* L 130' 11-25-24 d/c goal 1 met Target Visit [address] Problem 1 ST Problem #[address] Goal 1 Goal / Goal Update The patient will participate in home programming to improve carry over/generalization of skills to the home environment. Target Visit [address] Problem #[address] Goal 1 Goal / Goal Update Voice: 1. The patient will complete a HEP with 90% compliance. 2. The patietn will be provided information on techniques to improve vocal hygiene and care. 3. The patient will engage in exercises to promote optimal pitch and release any laryngeal tension 90% 4. The patietn will improve self-monitoring of vocal quality in regard to maintaining phonation, reducing laryngeal tension, and optimal voice for sustained voicing in conversational speech 85% of time. Target Visit 10
--- NOTE | 2024-11-25 10:46 | PTOPDC ---
Assessment and note entered by Tiara Jefferson, PT Assessment Status Discharge ICD-10 Condition Codes (PT) Pain in low back M54.50,Abnormalities of gait and mobility R26.9,Weakness R53.1 Other ICD-10 Condition Codes ( R29.898other signs & symptoms of musculoskeletal PT) system Onset May 2024 Subjective Information feel like my back is as good as it is going to get ; like the water exercises, going to join the [facility]; doing all the back things you taught me; to have MRI of lower back in few weeks; ready to be finished with back therapy for now; have orders for pelvic floor and Speech therapy to work on now. Reported Pain Level Pain Score Self Report Additional Pain Score Comments pain range in the past week: 5-9/10; pulling in back, tingle into both legs to toes---constant to toes increase pain: standing/walking 15-30 minutes decrease pain: sit, rest, move legs, change positions, hydrocodone and tylenol not using heat, ice reports with sleeping, awaken due to back pain 3-4 x/night Assessment PT Clinical Summary Roula has received a total of 20 PT sessions, on land and in the water for back pain. She also has orders from Dr Guzmán for cervical pain, but does not want cervical treatment at this time. With today's assessment: pain rating from 4-10/10 to 5-9/10; continues to have radicular pain into both LE's is constant tingle to toes; reports with sleeping from 3 to to 1-2 hours at a time; self assessment with back index rating from 62 to 54% limitation; slight increase in trunk and hip strength; increase flexibility of R and L quad/ anterior hip with prone knee flexion stretch; 2 minute walking test distance from 375' to 425', with increase pain reported after walking; education completed for HEP, posture, body mechanics and pain management. The goals were partially met. Discharge PT services. She is to continue her HEP - land and water exercises. Plan of Care PT Services Indicated No
--- NOTE | 2024-12-07 09:43 | PCSTNOTE ---
Patient called & cancelled scheduled appointment this date due to pain
--- NOTE | 2024-12-14 12:58 | PCSTNOTE ---
Patient called & cancelled scheduled appointment this date due to in pain
--- NOTE | 2024-12-30 10:44 | STOPDC ---
Assessment and note entered by ASHLEY Barron Evaluation Information Assessment Status Discharge Reported Pain Level Pain Score 0: Self Report Assessment ST Clinical Summary The patient is a 54 year old female referred by her ENT for a outpatient speech consult due to persistent voice disturbances and dysphagia one year post surgery. Her endoscopy revealed a slight glottic gap, functional bilateral vocal cord movement, with slight abnormal movement of the right vocal cord. The patient reports prior neck surgery involving C2 through C7. She stated the dysphagia and voice concerns have been present since her neck surgery. She reports difficulty with primarily solids or doughy textures when swallowing but states the sticking sensation can be present even in the absence of swallowing food. Her ENT placed her on Famotidine for a one month trial. Per her reports she did not notice a difference. She has a script for an MBS study but it has not been scheduled yet. The patient was administered the [facility] Voice Evaluation. Results: Mild deficits characterized by the following. The patient shows breaks in pitch when attempting to sustain the vowel /e/ or in prolonged phonation for speech production most likely secondary to the slight glottic insufficiency. Resulting overtime in a more hoarse vocal quality. The therapist also noted frequent throat clearing during the course of the evaluation which maybe leading to inflammation impacting voicing. The patient has an order for a MBS Study to r/o aspiration ASSISTANT DISTRICT ATTORNEY assisting in scheduling MBS. ENT has initiated medication for possible reflux as a contributing factor. Speech services recommended 1x a week for 10 visits to address 1. Dysphagia as indicated following MBS Study 2. Voice Therapy to address pitch variation and voice fatigue. Discharge Note: 12-30-24: The patient has received 6 visits with speech services. She states she feels speech services and direction on techniques to reduce vocal strain have improved her vocal quality some. She feels she will always have some difficulty due to the surgery she had completed. She would like to discharge on this date and continue with her HEP and the techniques she has been provided. ASSISTANT DISTRICT ATTORNEY reviewed diaphragmatic breathing, cervical relaxation, easy onset of voice and coordination of respiration and phonation. Discussed the importance of watching vocal volume and reducing throat clearing. Discharge speech services. Thank you for the consult. Plan of Care ST Services Indicated No
== END 2024-12-30 11:31 | disposition home or self-care (01) ==
LOC: ANHST 10:00
PROVIDERS: PCP Family Medicine; Referring Provider Otolaryngology; Visit Provider Family Medicine
DX: R29.898 Other symptoms and signs involving the musculoskeletal system (principal)
CPT/HCPCS: 92507; 92524; 97110; 97113; 97140; 97530

== ENCOUNTER 2025-01-14 10:30 | Outpatient (RCR) | payer OTHER, SELFPAY ==
--- NOTE | 2024-12-24 13:08 | OPREHPOC ---
Outpatient Therapy Plan of Care This is a Multidisciplinary Plan of Care that may contain components documented by all disciplines (PT, OT, and ST.) PT Problem 1 PT Problem #1 Knowledge Deficit PT Goal 1 Goal / Goal Update 1. Patient will perform independent HEP Target Visit 2 PT Problem 2 PT Problem #2 Impaired Strength PT Goal 1 Goal / Goal Update 1. Improve pelvic floor strength to 4/5 to reduce incontinence 2. Improve pelvic floor endurance to 10 seconds to reduce incontinence Target Visit 4 PT Problem 3 PT Problem #3 Pain PT Goal 1 Goal / Goal Update 1. Patient will report pain from prolapse no higher than 2/10 Target Visit 4 PT Problem 4 PT Problem #4 Impaired Functional ADLs PT Goal 1 Goal / Goal Update 1. Patient will report urinary incontinence no more than 1 time a week 2. Patient will be able to hold urge to void at least 30 minutes Target Visit 4
--- NOTE | 2024-12-24 13:08 | PTOPEVAL1 ---
Assessment and note entered by Natasha Headley DPT Evaluation Information Assessment Status Evaluation Diagnosis n81.2, ICD-10 Condition Codes (PT) Weakness R53.1,Pelvic and perineal pain R10.2,Urge incontinence N39.41,Mixed incontinence N39.46, Stress incontinence N39.3 Subjective Information Pt reports she has been diagnosed with prolapse and does get some irritation and pain. Highest pain 5/10 and lowest 0/10. Feels a sense of pressure. Thinks her symptoms have been worsening for several years. Has previously tried a pessary but states it did not stay in well. Voids about 10 times a day, wakes up at night to void up to 5-6 times but often not that much. Denies pain with urination. Gets stress urinary incontinence daily and wears a liner almost all the time. Small volume. Can hold urge to void only a few minutes and reports she will get urge incontinence as well . BM 2-4 times a day. Denies fecal incontinence or pain. Previously has had some pain with tampon use and pap smear. Previous surgery to remove ovarian cyst. Pt has been 3, 3 vaginal deliveries (2 living children). Tearing with all 3 . History of UTIs as well. Patient goal: prevent surgery if possible, improve prolapse Returns to [place] in a year. Reported Pain Level Pain Score 0: Self Report Assessment PT Clinical Summary The patient is presenting to skilled therapy with a diagnosis of pelvic organ prolapse, and reports some pelvic pain and mixed urinary incontinence. She presents with decreased pelvic floor strength and endurance as well as overall decreased hip and abdominal strength. These impairments are contributing to her symptoms and difficulty with typical activities. She will highly benefit from therapy to improve strength, reduce pain, and restore full function. Plan of Care Interventions Electrical Stimulation,Hot Pack/Cold Pack,Manual Therapy,Neuro Re-education,Patient/Caregiver Education,Therapeutic Activities,Therapeutic Exercise PT Services Indicated Yes Treatment Frequency and 1 time a week for 4 visits Duration These treatments will address the objective and functional deficits as defined above. The patient will be advanced safely and appropriately in order for the patient to progress towards his/her prior level of function. Additional exercises will be introduced and as well as a comprehensive home exercise program upon discharge, if needed, ?to ensure carryover of functional gains achieved in the clinic. This treatment plan has been reviewed and agreement upon by the patient.
--- NOTE | 2025-01-19 16:06 | PCPTNOTE ---
Patient did not show up for appointment 01/19/25- left message for patient to reschedule.
--- NOTE | 2025-03-08 13:22 | PTOPDC ---
Assessment and note entered by Natasha Headley, DPT Evaluation Information Assessment Status Discharge - Pt Not Present Diagnosis n81.2, ICD-10 Condition Codes (PT) Weakness R53.1,Pelvic and perineal pain R10.2,Urge incontinence N39.41,Mixed incontinence N39.46, Stress incontinence N39.3 Subjective Information - Assessment PT Clinical Summary The patient has not attended therapy since . Her case will be discharged this date. Plan of Care PT Services Indicated No
== END 2025-03-08 16:51 | disposition home or self-care (01) ==
LOC: ANHPT 10:30
PROVIDERS: PCP Family Medicine; Visit Provider Obstetrics & Gynecology Gynecology
DX: N81.2 Incomplete uterovaginal prolapse (principal); R10.20 Pelvic and perineal pain unspecified side; R53.1 Weakness; N39.46 Mixed incontinence
CPT/HCPCS: 97112; 97161; 97530

== ENCOUNTER 2025-03-01 12:21 | Outpatient (CLI) | payer MEDICARE, MEDICAID, SELFPAY ==
--- NOTE | ~2025-03-01 | US_ITS ---
EXAMINATION: US pelvic complete w TV, 03/01/2025 12:59 SITE IDENTIFICATION SPECIALIST HISTORY: Pelvic Pain Comparison: None Technique: Foote-scale and color Doppler images were obtained. Findings: Uterus: Uterus anteverted 10.9 x 6.4 x 6.7 cm, the myometrium demonstrates a heterogeneous appearance, a discrete underlying fibroid is not identified. . Endometrium is not clearly identified. Right Ovary:Right ovary 2.1 x 1.3 x 1.6 cm, no adnexal mass, normal flow. Left Ovary: Left ovary 2.1 x 1.6 x 1.2 cm, no adnexal mass, normal flow. Free Fluid: None Impression: 1. No etiology to explain the patient's pain. The endometrium is not clearly visualized. The myometrium demonstrates a heterogeneous appearance which may relate to underlying fibroid change. MRI suggested to assess Reviewed, dictated and finalized at location P. IDENTIFICATION SPECIALIST Impression: 1. No etiology to explain the patient's pain. The endometrium is not clearly vi sualized. The myometrium demonstrates a heterogeneous appearance which may rela te to underlying fibroid change. MRI suggested to assess
== END 2025-03-01 12:22 | disposition home or self-care (01) ==
DX: R10.20 Pelvic and perineal pain unspecified side (principal)
CPT/HCPCS: 76830; 76856